=== PATIENT | female | born 1945 | race Caucasian/White ===

== ENCOUNTER 2017-01-27 15:48 | Emergency (ER) | payer OTHER | END 2017-01-27 18:30 | disposition home or self-care (01) | DX: S83.8X1A Sprain of other specified parts of right knee, initial encounter (principal); X58.XXXA Exposure to other specified factors, initial encounter; M25.561 Pain in right knee; I10 Essential (primary) hypertension; E78.00 Pure hypercholesterolemia, unspecified; E11.9 Type 2 diabetes mellitus without complications; K21.9 Gastro-esophageal reflux disease without esophagitis; M19.90 Unspecified osteoarthritis, unspecified site ==

== ENCOUNTER 2017-02-12 08:18 | Outpatient (CLI) | payer OTHER | END 2017-02-12 08:19 | disposition home or self-care (01) | DX: E11.9 Type 2 diabetes mellitus without complications (principal); I10 Essential (primary) hypertension; E78.5 Hyperlipidemia, unspecified ==

== ENCOUNTER 2017-04-29 10:57 | Outpatient (CLI) | payer OTHER ==
--- NOTE | 2017-04-29 14:30 | Ultrasound Report ---
RIGHT BREAST ULTRASOUND: 04/29/2017 CLINICAL INDICATION: Abnormal mammogram. TECHNIQUE: Real-time scanning was performed with hr representative static images obtained. FINDINGS: Ultrasound of the upper outer quadrant of the right breast was performed. At the 10 o'clock position, approximately 5 cm from the nipple, there is an 11 x 7 x 5 mm hypoechoic nodule, with posterior acoustic shadowing and associated vascularity. The findings are suspicious. Bi opsy is recommended. The nodule appears amenable to ultrasound-guided core needle biopsy. IMPRESSION: SUSPICIOUS SOLID NODULE CORRELATING WITH THE MAMMOGRAPHIC ABNORMALITY. RECOMMENDATION: BIOPSY. THE NODULE APPEARS AMENABLE TO ULTRASOUND-GUIDED CORE NEEDLE BIOPSY. BIRADS CATEGORY 4-SUSPICIOUS ABNORMALITY. Results and recommendations discussed with the patient at the time of the examination, and called to Dr. Ocasio on 04/29/2017. Biopsy is scheduled on 05/04/2017 at 12:45 p.m. JOB #: [id number] EXT JOB #:[id number]
--- NOTE | 2017-04-29 15:08 | Ultrasound Report ---
LEFT BREAST ULTRASOUND: 04/29/2017 CLINICAL INDICATION: Palpable abnormality left breast. TECHNIQUE: Real-time scanning was performed with client care representative static images obtained. FINDINGS: Ultrasound of the palpable abnormality in the left outer breast was performed. At this site, there is a 2.4 x 2.0 x 2.0 cm hypoechoic mass with posterior acoustic shadowing and per ipheral vascularity. The appearance is suspicious. There is a mildly enlarged left axillary lymph nod e, with asymmetric cortical thickening, suspicious for jessica metastatic disease. IMPRESSION: SUSPICIOUS MASS CORRELATING WITH THE PALPABLE ABNORMALITY, WELL A POSSIBLE LEFT LY MPH NODE METASTATIC LESION. RECOMMENDATION: SAMPLING OF BOTH THE PALPABLE NODULE AND THE ABNORMAL LEFT AXILLARY LYMPH NODE. BOTH LESIONS APPEAR AMENABLE TO ULTRASOUND-GUIDED BIOPSY. BIRADS CATEGORY 4-SUSPICIOUS ABNORMALITY. Results and recommendations discussed with the patient at the time of the examination, and called to Dr. Ocasio on 04/29/2017. Biopsy is scheduled for 05/04/2017 at 12:45 p.m. JOB #: [id number] EXT JOB #:[id number]
--- NOTE | 2017-04-29 15:58 | Mammography Report ---
DIAGNOSTIC BILATERAL MAMMOGRAM: 04/29/2017 CLINICAL INDICATION: Palpable abnormality left outer breast. COMPARISON: 03/08/2014 TECHNIQUE: Bilateral CC and MLO views, bilateral true lateral view, right spot compression views. FINDINGS: The breasts demonstrate heterogeneously dense fibroglandular parenchyma bilaterally. The palpable abnormality correlates with a 2 cm nodule in the left periareolar breast. Additionally, in the right upper outer central breast, there is a 1 cm persistent density, which does not disperse on additional compression. Coarse, typically benign calcifications are seen bilaterally. Please also refer to bilateral breast ultrasounds of the same day. IMPRESSION: SUSPICIOUS ABNORMALITIES, WITH SOLID NODULES BILATERALLY CORRELATING WITH THE LEFT PALPABLE AND RIGHT MAMMOGRAPHIC ABNORMALITIES, WELL AN ENLARGED LEFT AXILLARY LYMPH NODE. RECOMMENDATION: Biopsies of both nodules and the enlarged left lymph node. BI-RADS category 4, suspicious abnormalities. Results and recommendations discussed with the patient at the time of the examination, and called to Dr. Ocasio on 04/29/2017. Biopsies are scheduled fro 05/04/2017 at 12:45 p.m. STANDARD QUALIFYING STATEMENTS 1. This examination was reviewed with the aid of Computer-Aided Detection (CAD). 2. A negative or benign imaging report should not delay biopsy if clinically suspicious findings are present. Consider surgical consultation if warranted. More than 5% of cancers are not identified by imaging. 3. Dense breasts may obscure an underlying neoplasm. JOB #: [id number] EXT JOB #: [id number] IDA
== END 2017-04-29 10:58 | disposition home or self-care (01) ==
LOC: DI 10:57
PROVIDERS: ATTEND Family Medicine
DX: N63 Unspecified lump in breast (principal); R59.0 Localized enlarged lymph nodes
CPT/HCPCS: 76642; 77066

== ENCOUNTER 2017-05-04 12:38 | Outpatient (CLI) | payer OTHER ==
[2017-05-04 16:21] VITALS: BP 158/65
[2017-05-04] MEDS ORDERED: BUFFERED LIDOCAINE 10 ML SYRINGE IU ONE (16:28)
[2017-05-04] MEDS ORDERED: BUPIVACAINE 0.5%-EPI 1:200000 PF 30 ML VIAL SUBQ ONE (16:28)
--- NOTE | 2017-05-04 17:40 | Ultrasound Report ---
ULTRASOUND CORE NEEDLE BIOPSY BILATERAL BREAST LESIONS, LEFT AXILLARY LYMPH NODE : 05/04/2017 CLINICAL INDICATION: An 11 mm right breast nodule, 2.4 cm left breast mass, enlarged axillary lymph node. FINDINGS: Informed consent was obtained. Using standard aseptic technique, both 1% buffered lidocaine and Sensorcaine were injected into the right breast for local anesthesia. A small uriel was made in the skin with a #11 blade. A 12 -gauge Celero vacuum-assisted device was used to obtain three specimens. A Celero marker was placed into the biopsy cavity under ultrasound guidance. Using standard aseptic technique, both 1% lidocaine and Sensorcaine were then injected into the left breast for local anesthesia. A small uriel was made in the skin with a #11 blade. A 12-gauge Celero vacuum-assisted device was used to obtain two specimens. A Celero marker was placed into the biopsy cavity under ultrasound guidance. Using standard aseptic technique, both 1% buffered lidocaine and Sensorcaine were injected into the left axilla. A small uriel was made in the skin with a # 11 blade. A 12-gauge Celero vacuum-assisted device was used to obtain two specimens. A Celero marker was placed into the biopsy cavity under ultrasound guidance. The patient was taken to a separate mammography machine, and a bilateral 2-view digital mammogram was performed, documenting the markers in the expected locations and no significant postbiopsy hematomas. The wounds were dressed and ice applied. The patient was observed for approximately 15 minutes, then was discharged from [facility] in good condition following instructions on wound care and obtaining results. The tissue was sent for histologic analysis. IMPRESSION: ULTRASOUND-GUIDED BIOPSY OF BILATERAL BREAST NODULES AND ENLARGED LEFT AXILLARY LYMPH NODE. An addendum will be made to this report when pathology is reviewed to establish concordance. JOB #: [id number] EXT JOB #: [id number] IDA
--- NOTE | 2017-05-19 15:44 | Ultrasound Report ---
EXAM: [id number] US/BX ([id number]) ULTRASOUND CORE NEEDLE BIOPSY BILATERAL BREAST LESIONS, LEFT AXILLARY LYMPH NODE : 05/04/2017 CLINICAL INDICATION: An 11 mm right breast nodule, 2.4 cm left breast mass, enlarged axillary lymph node. FINDINGS: Informed consent was obtained. Using standard aseptic technique, both 1% buffered lidocaine and Sensorcaine were injected into the right breast for local anesthesia. A small uriel was made in the skin with a #11 blade. A 12 -gauge Celero vacuum-assisted device was used to obtain three specimens. A Celero marker was placed into the biopsy cavity under ultrasound guidance. Using standard aseptic technique, both 1% lidocaine and Sensorcaine were then injected into the left breast for local anesthesia. A small uriel was made in the skin with a #11 blade. A 12-gauge Celero vacuum-assisted device was used to obtain two specimens. A Celero marker was placed into the biopsy cavity under ultrasound guidance. Using standard aseptic technique, both 1% buffered lidocaine and Sensorcaine were injected into the left axilla. A small uriel was made in the skin with a # 11 blade. A 12-gauge Celero vacuum-assisted device was used to obtain two specimens. A Celero marker was placed into the biopsy cavity under ultrasound guidance. The patient was taken to a separate mammography machine, and a bilateral 2-view digital mammogram was performed, documenting the markers in the expected locations and no significant postbiopsy hematomas. The wounds were dressed and ice applied. The patient was observed for approximately 15 minutes, then was discharged from [facility] in good condition following instructions on wound care and obtaining results. The tissue was sent for histologic analysis. IMPRESSION: ULTRASOUND-GUIDED BIOPSY OF BILATERAL BREAST NODULES AND ENLARGED LEFT AXILLARY LYMPH NODE. An addendum will be made to this report when pathology is reviewed to establish concordance. JOB #: [id number] EXT JOB #: [id number] Inspector Screen Printing: Reading Radiologist: Jass Cuevas MD Releasing Radiologist: Jass Cuevas MD Released Date Time: 05/05/17 0827 <Electronically signed by Jass Cuevas MD> cc: Adebayo Ocasio MD [place] ADDENDUM ADDENDUM: Procedure performed by Dr. Cuevas. Pathology reviewed by Dr. Cuevas. 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 These results are concordant with the imaging findings. RECOMMENDATION: Surgical followup for treatment planning. The patient has been scheduled to obtain results from Dr. Ocasio on 05/06/2017 at 4:00 p.m. Addendum Inspector Screen Printing: RONALD Addendum Reading Radiologist: Jass Cuevas MD Addendum Releasing Radiologist: Jass Cuevas MD Addendum Released Date Time: 05/06/17 1329 MTDD
--- NOTE | 2017-05-19 15:44 | Ultrasound Report ---
EXAM: [id number] US/BX ([id number]) ULTRASOUND CORE NEEDLE BIOPSY BILATERAL BREAST LESIONS, LEFT AXILLARY LYMPH NODE : 05/04/2017 CLINICAL INDICATION: An 11 mm right breast nodule, 2.4 cm left breast mass, enlarged axillary lymph node. FINDINGS: Informed consent was obtained. Using standard aseptic technique, both 1% buffered lidocaine and Sensorcaine were injected into the right breast for local anesthesia. A small uriel was made in the skin with a #11 blade. A 12 -gauge Celero vacuum-assisted device was used to obtain three specimens. A Celero marker was placed into the biopsy cavity under ultrasound guidance. Using standard aseptic technique, both 1% lidocaine and Sensorcaine were then injected into the left breast for local anesthesia. A small uriel was made in the skin with a #11 blade. A 12-gauge Celero vacuum-assisted device was used to obtain two specimens. A Celero marker was placed into the biopsy cavity under ultrasound guidance. Using standard aseptic technique, both 1% buffered lidocaine and Sensorcaine were injected into the left axilla. A small uriel was made in the skin with a # 11 blade. A 12-gauge Celero vacuum-assisted device was used to obtain two specimens. A Celero marker was placed into the biopsy cavity under ultrasound guidance. The patient was taken to a separate mammography machine, and a bilateral 2-view digital mammogram was performed, documenting the markers in the expected locations and no significant postbiopsy hematomas. The wounds were dressed and ice applied. The patient was observed for approximately 15 minutes, then was discharged from [facility] in good condition following instructions on wound care and obtaining results. The tissue was sent for histologic analysis. IMPRESSION: ULTRASOUND-GUIDED BIOPSY OF BILATERAL BREAST NODULES AND ENLARGED LEFT AXILLARY LYMPH NODE. An addendum will be made to this report when pathology is reviewed to establish concordance. JOB #: [id number] EXT JOB #: [id number] Apprentice Cosmetologist: Reading Radiologist: Jass Cuevas MD Releasing Radiologist: Jass Cuevas MD Released Date Time: 05/05/17 0827 <Electronically signed by Jass Cuevas MD> cc: Adebayo Ocasio MD [place] ADDENDUM ADDENDUM: Procedure performed by Dr. Cuevas. Pathology reviewed by Dr. Cuevas. 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 These results are concordant with the imaging findings. RECOMMENDATION: Surgical followup for treatment planning. The patient has been scheduled to obtain results from Dr. Ocasio on 05/06/2017 at 4:00 p.m. Addendum Apprentice Cosmetologist: RONALD Addendum Reading Radiologist: Jass Cuevas MD Addendum Releasing Radiologist: aJss Cuevas MD Addendum Released Date Time: 05/06/17 1329 MTDD
== END 2017-05-04 12:39 | disposition home or self-care (01) ==
LOC: DI 12:38
PROVIDERS: ATTEND Family Medicine
DX: C50.912 Malignant neoplasm of unspecified site of left female breast (principal); C77.3 Secondary and unspecified malignant neoplasm of axilla and upper limb lymph nodes; Z17.0 Estrogen receptor positive status [ER+]; C50.911 Malignant neoplasm of unspecified site of right female breast
CPT/HCPCS: 19083; 19084; 38505; 77066; 88305; 88341; 88342; 88360; 88374

== ENCOUNTER 2017-06-02 13:50 | Outpatient (CLI) | payer MEDICARE, OTHER ==
[2017-06-02 19:46] LABS: CREATININE 0.8 mg/dL (0.4-1.0)
== END 2017-06-02 13:51 | disposition home or self-care (01) ==
LOC: LAB.N 13:50
PROVIDERS: ATTEND Surgery
DX: C50.911 Malignant neoplasm of unspecified site of right female breast (principal)
CPT/HCPCS: 36415; 82565; 84520

== ENCOUNTER 2017-07-12 04:16 | Inpatient (IN) | payer MEDICARE ==
[2017-07-12] MEDS ORDERED: LACTATED RINGERS 1,000 ML IV ONE ×3 (08:58→16:40)
[2017-07-12] MEDS ORDERED: MIDAZOLAM 2 MG/2 ML VIAL IVP ONE ×2 (11:20→12:40)
[2017-07-12] MEDS ORDERED: ceFAZolin 2 GM/50 ML 50 ML IV ONE (11:20)
--- NOTE | 2017-07-12 11:37 | Nuclear Medicine Report ---
SENTINEL NODE INJECTION RIGHT BREAST: 07/12/2017 CLINICAL INDICATION: Breast cancer. FINDINGS: Technetium-99m filtered sulfur colloid, 1 mCi, in 4 mL buffered lidocaine was injected sub areolarly into the right breast. Anterior imaging demonstrates right axillary uptake. IMPRESSION: SUCCESSFUL RIGHT BREAST INJECTION FOR SENTINEL LYMPH NODE IDENTIFICATION. JOB #: [id number] EXT JOB #:[id number]
[2017-07-12] MEDS ORDERED: METOCLOPRAMIDE 10 MG/2 ML VIAL IVP ONE (12:40)
[2017-07-12] MEDS ORDERED: ceFAZolin 1 GM VIAL IV ONE (12:40)
[2017-07-12] MEDS ORDERED: PROPOFOL 200 MG/20 ML VIAL IVP ONE (12:40)
[2017-07-12] MEDS ORDERED: KETOROLAC 30 MG/ML VIAL IVP ONE (12:40)
[2017-07-12] MEDS ORDERED: DEXAMETHASONE 4 MG/ML VIAL IVP ONE (12:40)
[2017-07-12] MEDS ORDERED: fentaNYL 100 MCG/2 ML VIAL IVP ONE (12:40)
[2017-07-12] MEDS ORDERED: ACETAMINOPHEN 1,000 MG/100 ML VIAL IV ONE (12:40)
[2017-07-12] MEDS ORDERED: LIDOCAINE-MPF 2% 5 ML VIAL IM ONE (12:40)
[2017-07-12] MEDS ORDERED: ONDANSETRON 4 MG/2 ML VIAL IVP ONE (12:40)
[2017-07-12] MEDS ORDERED: BUPIVACAINE 0.5%-EPI 1:200000 PF 30 ML VIAL SUBQ ONE (16:41)
[2017-07-12] MEDS ORDERED: SODIUM CHLORIDE FLUSH 0.9% 10 ML SYRINGE IVP PRN (16:54)
[2017-07-12] MEDS ORDERED: ACETAMINOPHEN 1,000 MG/100 ML 100 ML IV PRN (16:54)
[2017-07-12] MEDS ORDERED: ONDANSETRON 4 MG/2 ML VIAL IVP PRN (16:54)
[2017-07-12] MEDS ORDERED: LORazepam 0.5 MG TABLET PO PRN (16:57)
[2017-07-12] MEDS ORDERED: HYDROmorphone 1 MG/ML SYRINGE ONE (17:40)
[2017-07-12] MEDS ORDERED: fentaNYL 100 MCG/2 ML VIAL ONE (18:00)
[2017-07-12] MEDS: SODIUM CHLORIDE FLUSH 0.9% 10 ML SYRINGE IVP SCH (21:34)
[2017-07-12] MEDS: MORPHINE 2 MG/ML CARPUJECT IVP PRN ×2 (21:34→23:36)
[2017-07-12] MEDS: LACTATED RINGERS 1,000 ML IV SCH (21:48)
[2017-07-13] MEDS: MORPHINE 2 MG/ML CARPUJECT IVP PRN ×3 (03:20→18:29)
[2017-07-13] MEDS: SODIUM CHLORIDE FLUSH 0.9% 10 ML SYRINGE IVP SCH ×3 (05:54→20:39)
[2017-07-13] MEDS: LACTATED RINGERS 1,000 ML IV SCH ×2 (06:50→17:13)
[2017-07-13] MEDS: CITALOPRAM 10 MG TABLET PO SCH (09:17)
[2017-07-13] MEDS: ATENOLOL 25 MG TABLET PO SCH (09:17)
[2017-07-13] MEDS: KETOROLAC 30 MG/ML VIAL IVP PRN ×2 (09:24→15:50)
--- NOTE | 2017-07-13 12:56 | PROVIDER PROGRESS NOTE ---
Subjective - General Admit Date: 07/12/17 Procedure Date: 07/12/17 Post Op Days: 1 Procedure Performed: bilateral mastectomy, right SLNB, L ALND - Review of Systems Wound/Incisions: positive: Dressing dry and intact Drain Type: LALITHA x 3 Drain Output Description: 25, 20, 60 General: positive: No symptoms Pulmonary: positive: No symptoms Cardiovascular: positive: No symptoms Gastrointestinal: positive: No symptoms Psychiatric: positive: No symptoms Objective - Patient Data Reviewed Vital Signs: Yes Vital Signs: Vital Signs x48h Temp Pulse Resp BP Pulse Ox 07/13/17 08:46 37.1 C 77 16 137/64 H 93 07/13/17 05:00 36.7 C 72 16 126/58 L 97 Intake & Output: Intake and Output Totals x24h 07/11/17 07/12/17 07/13/17 23:59 23:59 23:59 Intake Total 3336 791 Output Total 205 195 Balance 3131 596 - Lab Results Other Lab Results: Lab Results x24hrs 07/12/17 Range/Units 15:46 POC Whole Bld Glucose 159 H (70 - 100) mg/dL - Current Medications Current Medications: Current Medications Generic Name Dose Route Start Last Admin Trade Name Freq PRN Reason Stop Dose Admin Atenolol 50 mg 07/13/17 09:00 07/13/17 09:17 Tenormin PO Not Given DAILY [facility] Citalopram Hydrobromide 40 mg 07/13/17 09:00 07/13/17 09:17 Celexa PO Not Given DAILY JAEL Lactated Ringer's 1,000 mls @ 100 mls/hr 07/12/17 17:00 07/13/17 06:50 Lr IV 100 mls/hr .Q10H JAEL Administration Ketorolac Tromethamine 30 mg 07/12/17 16:54 07/13/17 09:24 Toradol Inj IVP 07/17/17 16:53 30 mg Q6H PRN Administration PAIN Morphine Sulfate 2 mg 07/12/17 16:54 07/13/17 07:19 Morphine IVP 2 mg Q2HR PRN Administration PAIN Sodium Chloride 10 ml 07/12/17 22:00 07/13/17 05:54 Normal Saline Flush 0.9% IVP Not Given Q8HR [facility] - Physical Exam Wound/Incisions: positive: Dressing dry and intact General Appearance: positive: No acute distress Respiratory: positive: Chest non-tender Cardiovascular: positive: Regular rate & rhythm Abdomen: positive: Non-tender, No distention Extremities: positive: No pedal edema Impression/Plan - Problem List Problem List: s/p bilateral mastectomy withy right SLNB and L ALND POD 1 - Continue morphine for pain control. - encourage ambulation - will transition to oral pain meds as tolerated - home medications resumed.
--- NOTE | 2017-07-13 13:31 | OPERATIVE REPORT ---
DATE OF SURGERY: 07/12/2017 00:00:00 SURGEON: Annabelle Todd MD. PREOPERATIVE DIAGNOSIS: Bilateral breast cancer. POSTOPERATIVE DIAGNOSIS: Bilateral breast cancer. NAME OF PROCEDURE: Bilateral mastectomy with right sentinel lymph node biopsy and left axillary lymph node dissection. FINDINGS: After obtaining informed consent from the patient, she was brought into the operating room and positioned on the operating table in the supine position, taking note of pressure points. She was intubated by Anesthesia. She was administered 2 grams of Ancef. She was then prepped and draped in the usual sterile fashion and a time-out was taken according to protocol. An elliptical incision was created around the right breast and skin flaps were created superiorly towards the clavicle, medially towards the sternum, inferiorly towards the inferior mammary fold, and laterally towards the latissimus dorsi. branching vessels were clipped when encountered. The breast tissue was then removed from the pectoralis fascia. The breast was then completely removed and was marked with a long stitch laterally and short stitch medially. The specimen was then passed off. The NeoProbe was then utilized to locate sentinel lymph nodes in the right axilla. The first lymph node was removed and was noted to be approximately 500 on the NeoProbe reading. It was also noted to be blue from the methylene blue injection. A second lymph node was also encountered and was noted to be 700 positivity with the NeoProbe reading and was also noted to be blue. These were both removed and passed off as sentinel lymph nodes. The incision cavity was then inspected for any signs of bleeding and this was controlled using electrocautery. One LALITHA drain was then inserted and secured in place with 3-0 nylon.The cavity was irrigated with water and the incision was then closed with interrupted 3-0 Vicryl and running 4-0 Monocryl. A blue towel was then applied. The teams' gloves were then changed, and attention was directed to the left breast. An elliptical incision was created around this breast involving the palpable large mass at the 3 o'clock position. Skin flaps were then created medially towards the sternum, anteriorly towards the clavicle, laterally towards the serratus, and inferiorly towards the inferior mammary fold. Small vessels were clipped and ligated along this process. The breast tissue was then removed from the pectoralis fascia. I worked my way towards the axillary fat pad. However, the large breast created difficulty in visualization. For this reason, it was completely amputated. At this point it was marked with a long stitch laterally, a short stitch superiorly, and passed off as a specimen. I then turned my attention to the left axilla. Due to the patient's body habitus, there was an excessive amount of adipose in this location. I was unable to initially identify appropriate landmarks to perform the dissection a portion of the axillary fat was then removed and this was saved as part of the axillary lymph node dissection in the event that lymph nodes were present in the axillary fat pad. I then completed the axillary lymph node dissection by dissecting all lymphatic tissue from the axillary vein superiorly to the pectoralis minor medially and the serratus laterally. All lymphatic tissue in this location was removed. The thoracodorsal and long thoracic nerves were identified during this portion of the procedure and were protected. The cavity was then inspected for any signs of bleeding, and this was controlled with electrocautery. The cavity was then irrigated with sterile water. Two LALITHA drains were then inserted, one in the left axilla and one in the left breast incision. These were secured in place with 3-0 nylon. The incision was then closed with 3- 0 Vicryl and 4-0 Monocryl. The patient was subsequently extubated and taken to the recovery room in stable condition. ESTIMATED BLOOD LOSS: 100 mL. COMPLICATIONS: None. SPECIMENS: Right and left breast with right sentinel lymph node biopsy and left axillary lymph node dissection. JOB #: [id number] [id number] JOB #:[id number] [facility]
[2017-07-13] MEDS ORDERED: oxyCOD/ACETAMIN 5 MG/325 MG TABLET PO PRN (16:49)
[2017-07-13] MEDS ORDERED: diphenhydrAMINE 25 MG CAPSULE PO PRN (16:49)
[2017-07-14] MEDS: LACTATED RINGERS 1,000 ML IV SCH (02:23)
[2017-07-14] MEDS: SODIUM CHLORIDE FLUSH 0.9% 10 ML SYRINGE IVP SCH (05:46)
[2017-07-14] MEDS: KETOROLAC 30 MG/ML VIAL IVP PRN (08:58)
[2017-07-14] MEDS: CITALOPRAM 10 MG TABLET PO SCH (08:58)
[2017-07-14] MEDS: ATENOLOL 25 MG TABLET PO SCH (08:58)
[2017-07-14 09:11] VITALS: BP 151/65
--- NOTE | 2017-07-14 10:21 | Discharge Plan ---
Discharge Plan Disposition: 01 Home, Self Care Condition: Good Prescriptions: diphenhydrAMINE [Benadryl] 25 mg PO Q4HR PRN #30 capsule PRN Reason: Allergy Symptoms oxyCODONE/ACET 5/325 [Percocet 5 mg/325 mg] 1 tab PO Q4HR PRN #30 tablet PRN Reason: Pain Diet: Regular Activity Restrictions: Activity as Tolerated Shower Restrictions: No Driving Restrictions: Yes (not while on narcotics) Instruction Topics: Mastectomy After No Smoking: If you smoke, Please STOP! Call for help. Follow-up with: ERIC GARCIA MD [Provider Admit Priv/Credential] - 1 Week
== END 2017-07-14 11:36 | disposition home or self-care (01) | DRG 580 ==
LOC: MS2 08:47 → DI 08:47 → EDSTATUS 10:45 → DI 13:24 → MS2 13:24 → UNDOFXSDCSVC 16:45 → MS2 16:54 → DI 16:54 → UNDOADMIN 16:54 → UNDODISIN 07-14 11:36
PROVIDERS: ADMIT Surgery; ATTEND Surgery
PROC: 0HTV0ZZ Resection of Bilateral Breast, Open Approach (ICD-10-PCS; principal; 2017-07-12 10:45)
PROC: 07B60ZX Excision of Left Axillary Lymphatic, Open Approach, Diagnostic (ICD-10-PCS; 2017-07-12 10:45)
PROC: 07B50ZX Excision of Right Axillary Lymphatic, Open Approach, Diagnostic (ICD-10-PCS; 2017-07-12 10:45)
DX: C50.812 Malignant neoplasm of overlapping sites of left female breast (principal); C77.3 Secondary and unspecified malignant neoplasm of axilla and upper limb lymph nodes; C50.411 Malignant neoplasm of upper-outer quadrant of right female breast; Z17.0 Estrogen receptor positive status [ER+]; I10 Essential (primary) hypertension; E11.9 Type 2 diabetes mellitus without complications; F32.9 Major depressive disorder, single episode, unspecified; K21.9 Gastro-esophageal reflux disease without esophagitis; M54.9 Dorsalgia, unspecified; G89.29 Other chronic pain; Z88.6 Allergy status to analgesic agent; Z86.2 Personal history of diseases of the blood and blood-forming organs and certain disorders involving the immune mechanism; Z87.19 Personal history of other diseases of the digestive system
CPT/HCPCS: 78195

== ENCOUNTER 2018-05-04 08:00 | Outpatient (CLI) | payer MEDICARE, OTHER ==
[2018-05-04 13:39] LABS: CREATININE 0.7 mg/dL (0.4-1.0)
== END 2018-05-04 08:01 | disposition home or self-care (01) ==
LOC: LAB.N 08:00
PROVIDERS: ATTEND Surgery
DX: Z01.812 Encounter for preprocedural laboratory examination (principal); C50.911 Malignant neoplasm of unspecified site of right female breast; C50.912 Malignant neoplasm of unspecified site of left female breast
CPT/HCPCS: 36415; 82565; 84520

== ENCOUNTER 2018-09-06 08:00 | Outpatient (CLI) | payer OTHER ==
[2018-09-06 13:14] LABS: BASOPHILS % (AUTO) 0.4 %; EOSINOPHILS # (AUTO) 0.2 10^3/uL (0.0-0.7); EOSINOPHILS % (AUTO) 1.7 %; HGB - HEMOGLOBIN 14.3 g/dL (12.0-16.0); LYMPHOCYTES % (AUTO) 19.7 %; MEAN CORPUSCULAR HEMOGLOBIN 28.8 pg (27.0-31.0); MEAN CORPUSCULAR HGB CONC 34.1 g/dL (32.0-36.0); MEAN CORPUSCULAR VOLUME 84.3 fL (81.0-99.0); MEAN PLATELET VOLUME 8.9 fL (7.9-10.8); MONOCYTES # (AUTO) 0.6 10^3/uL (0.0-1.0); MONOCYTES % (AUTO) 5.6 %; NEUTROPHILS # (AUTO) 7.5 10^3/uL (1.5-6.6); NEUTROPHILS % (AUTO) 72.6 %; PLT - PLATELET COUNT 335 10^3/uL (130-450); RED BLOOD COUNT 4.99 10^6/uL (4.20-5.40); RED CELL DISTRIBUTION WIDTH 13.5 % (12.0-15.0); WHITE BLOOD COUNT 10.4 x10^3/uL (4.8-10.8)
[2018-09-06 13:32] LABS: ALBUMIN 3.8 g/dL (3.2-5.5); CREATININE 0.8 mg/dL (0.4-1.0); PHOSPHORUS 3.8 mg/dL (2.5-4.6)
== END 2018-09-06 08:01 | disposition home or self-care (01) ==
LOC: LAB.N 08:00
DX: Z01.818 Encounter for other preprocedural examination (principal)
CPT/HCPCS: 36415; 80069; 85025

== ENCOUNTER 2018-09-13 18:58 | Outpatient (CLI) | payer OTHER ==
[2018-09-13 19:38] LABS: ALBUMIN/GLOBULIN RATIO 1.1 (1.0-2.2); BILIRUBIN,TOTAL 1.3 mg/dL (0.2-1.0); CALCIUM 8.8 mg/dL (8.5-10.3); CREATININE 0.7 mg/dL (0.4-1.0); TOTAL PROTEIN 7.5 g/dL (6.7-8.2); URIC ACID 6.5 mg/dL (2.6-7.2)
[2018-09-13 20:12] LABS: BASOPHILS # (AUTO) 0.1 10^3/uL (0.0-0.1); BASOPHILS % (AUTO) 0.5 %; EOSINOPHILS # (AUTO) 0.2 10^3/uL (0.0-0.7); EOSINOPHILS % (AUTO) 1.6 %; HGB - HEMOGLOBIN 14.1 g/dL (12.0-16.0); LYMPHOCYTES # (AUTO) 1.8 10^3/uL (1.5-3.5); LYMPHOCYTES % (AUTO) 15.2 %; MEAN CORPUSCULAR HEMOGLOBIN 29.1 pg (27.0-31.0); MEAN CORPUSCULAR HGB CONC 35.1 g/dL (32.0-36.0); MEAN CORPUSCULAR VOLUME 82.9 fL (81.0-99.0); MEAN PLATELET VOLUME 8.1 fL (7.9-10.8); MONOCYTES # (AUTO) 0.9 10^3/uL (0.0-1.0); MONOCYTES % (AUTO) 7.6 %; NEUTROPHILS # (AUTO) 8.8 10^3/uL (1.5-6.6); NEUTROPHILS % (AUTO) 75.1 %; PLT - PLATELET COUNT 294 10^3/uL (130-450); RED BLOOD COUNT 4.85 10^6/uL (4.20-5.40); RED CELL DISTRIBUTION WIDTH 13.3 % (12.0-15.0); WHITE BLOOD COUNT 11.6 x10^3/uL (4.8-10.8)
== END 2018-09-13 18:59 | disposition home or self-care (01) ==
LOC: LAB 18:58
PROVIDERS: ATTEND Physician Assistant
DX: R60.0 Localized edema (principal); I10 Essential (primary) hypertension
CPT/HCPCS: 36415; 80053; 84550; 85025

== ENCOUNTER 2018-09-13 19:02 | Outpatient (CLI) | payer OTHER ==
--- NOTE | 2018-09-13 19:59 | Ultrasound Report ---
Reason: LEG EDEMA,LEFT Procedure Date: 09/13/2018 Accession Number: [id number] / [id number] Procedure: US - Duplex Ext Veins Left CPT Code: FULL RESULT: EXAM: LEFT LOWER EXTREMITY VENOUS ULTRASOUND EXAM DATE: 09/13/2018 07:43 PM. CLINICAL HISTORY: LEG EDEMA,LEFT. COMPARISON: None. TECHNIQUE: Real-time sonographic vascular imaging was performed by the cost controller through the lower extremity utilizing both color-flow and Doppler spectral analysis. Multiple tour sales representative static images were saved for review. FINDINGS: Common Femoral Vein (CFV): Normal. CFV-GSV Junction: Normal. Profunda Femoral Vein (PFV): Normal. Femoral Vein (FV) Prox: Normal. Femoral Vein (FV) Mid: Normal. Femoral Vein (FV) Dist: Normal. Popliteal Vein: Normal. Posterior Tibial Veins: Normal. Peroneal Veins: Normal. Contralateral Side CFV: Normal. Other: None. IMPRESSION: No evidence for deep venous thrombosis. RADIA
== END 2018-09-13 19:03 | disposition home or self-care (01) ==
LOC: DI 19:02
PROVIDERS: ATTEND Physician Assistant
DX: R60.0 Localized edema (principal); I10 Essential (primary) hypertension
CPT/HCPCS: 36415; 80053; 84550; 85025

== ENCOUNTER 2019-01-06 08:31 | Outpatient (CLI) | payer BC ==
--- NOTE | 2019-01-06 09:07 | XRAY Report ---
Reason: CHEST PX, ATYPICAL Procedure Date: 01/06/2019 Accession Number: [id number] / [id number] Procedure: WCP - Chest 2 View X-Ray CPT Code: 28015 FULL RESULT: EXAM: CHEST RADIOGRAPHY EXAM DATE: 01/06/2019 08:49 AM. CLINICAL HISTORY: CHEST PX, ATYPICAL. Right chest pain. COMPARISON: XR CHEST PA AND LAT 01/22/2010 12:31 PM. TECHNIQUE: 2 views. FINDINGS: Lungs/Pleura: No focal opacities evident. No pleural effusion. No pneumothorax. Normal volumes. Mediastinum: Heart and mediastinal contours are unremarkable. Other: There is mild left convex upper thoracic scoliosis. Mild multilevel thoracic degenerative disk disease. Bilateral breast surgical clips. IMPRESSION: Negative chest. No evidence of active cardiopulmonary disease. RADIA
== END 2019-01-06 08:32 | disposition home or self-care (01) ==
LOC: DI.WCP 08:31
PROVIDERS: ATTEND Family Medicine
DX: R07.89 Other chest pain (principal)
CPT/HCPCS: 71046

== ENCOUNTER 2019-06-21 11:37 | Outpatient (CLI) | payer BC, OTHER ==
[2019-06-21 18:44] LABS: BASOPHILS # (AUTO) 0.1 10^3/uL (0.0-0.1); BASOPHILS % (AUTO) 0.5 %; EOSINOPHILS # (AUTO) 0.1 10^3/uL (0.0-0.7); LYMPHOCYTES # (AUTO) 2.3 10^3/uL (1.5-3.5); LYMPHOCYTES % (AUTO) 21.8 %; MEAN CORPUSCULAR HEMOGLOBIN 27.2 pg (27.0-31.0); MEAN CORPUSCULAR VOLUME 87.7 fL (81.0-99.0); MEAN PLATELET VOLUME 10.9 fL (7.9-10.8); MONOCYTES # (AUTO) 0.6 10^3/uL (0.0-1.0); MONOCYTES % (AUTO) 5.7 %; NEUTROPHILS # (AUTO) 7.4 10^3/uL (1.5-6.6); NEUTROPHILS % (AUTO) 70.4 %; PLT - PLATELET COUNT 332 10^3/uL (130-450); RED BLOOD COUNT 5.52 10^6/uL (4.20-5.40); RED CELL DISTRIBUTION WIDTH 13.5 % (12.0-15.0); WHITE BLOOD COUNT 10.5 x10^3/uL (4.8-10.8)
[2019-06-21 19:03] LABS: ALBUMIN 3.9 g/dL (3.2-5.5); ALBUMIN/GLOBULIN RATIO 1.2 (1.0-2.2); BILIRUBIN,TOTAL 0.7 mg/dL (0.2-1.0); CALCIUM 9.1 mg/dL (8.5-10.3); CREATININE 0.8 mg/dL (0.4-1.0); TOTAL PROTEIN 7.1 g/dL (6.7-8.2)
== END 2019-06-21 11:38 | disposition home or self-care (01) ==
LOC: LAB.WCP 11:37
PROVIDERS: ATTEND Family Medicine
DX: E04.1 Nontoxic single thyroid nodule (principal); R10.11 Right upper quadrant pain
CPT/HCPCS: 36415; 80053; 83690; 84443; 85025

== ENCOUNTER 2019-10-10 12:15 | Outpatient (CLI) | payer MEDICARE, OTHER ==
--- NOTE | 2019-10-11 01:03 | XRAY Report ---
Reason: RIGHT SIDE CHEST PAIN Procedure Date: 10/10/2019 Accession Number: [id number] / [id number] Procedure: WCP - Chest 2 View X-Ray CPT Code: 94893 Final Report FULL RESULT: EXAM: CHEST RADIOGRAPHY EXAM DATE: 10/10/2019 12:15 PM. CLINICAL HISTORY: RIGHT SIDE CHEST PAIN. COMPARISON: CHEST 2 VIEW 01/06/2019 8:28 AM. TECHNIQUE: 2 views. FINDINGS: Lungs/Pleura: No focal opacities evident. No pleural effusion. No pneumothorax. Normal volumes. Mediastinum: Borderline cardiomegaly. Other: Mild levoscoliosis upper thoracic spine. Left breast surgical clips. No acute bone findings are seen. Demineralized bones. IMPRESSION: Borderline cardiomegaly, unchanged. No acute findings are seen. RADIA
== END 2019-10-10 23:59 | disposition home or self-care (01) ==
LOC: DI.WCP 12:15
PROVIDERS: ATTEND Family Medicine
DX: R07.89 Other chest pain (principal)
CPT/HCPCS: 71046

== ENCOUNTER 2019-11-09 14:48 | Outpatient (CLI) | payer MEDICARE ==
--- NOTE | 2019-11-09 18:30 | CONSULTATION NOTE ---
Palliative Care Consultation - Referral Referring Provider: Dr. Ludy Nicholson Time of Visit: [id number] Referral setting: Home Referral Reason: Pain of neoplastic origin/Fatigue/Met Breast CA - Information Sources Records reviewed: Previous records reviewed History/Review of Systems obtained from: Patient Exam limitations: Clinical condition (having some STM/cog. slowing) - History of Present Illness Brief History of Present Illness: This is a 74-year-old woman who presents today with fairly high symptom burden, she has a history of bilateral breast cancer, infiltrating ductal, ER/TN positive, HER-2 negative. She was originally treated in 2017 with bilateral mastectomies, a left axillary lymph node dissection and right sentinel node. It was recommended that time for adjuvant radiation chemotherapy, she opted not to pursue but did initiate anastrozole, unfortunately because of her intolerance with nausea vomiting depression and was no longer able to tolerate this. Patient did pursue reconstruction, with the placement of tissue expanders, unfortunately presented with severe pain for 6 weeks, and had them removed. Reports there was a recall on the product, and concerned may have added to her risk of recurrence. Because of her persistent pain, a CT scan of her chest, abdomen, and pelvis is obtained on which showed extensive bony mets involving her left sternal border measuring 3.4 x 4.4 cm, thoracic spine at mid chest level measuring 1.6 x 1.8 cm with early epidural tumor more invasion. Th at point time there is no visceral soft tissue mets found, and she proceeded to receive radiation to sternum and back, which she completed in 08/2019. She did initially get some relief of her severe pain levels, but these have now reoccurred. Patient currently receiving Faslodex and Ibrance. She is experiencing severe fatigue as a side effect. To add to her complexity of her situation, she roger ears to have poor tolerance of opioids, with side effects of pruritus that are fairly severe. She has trialed oxycodone, but pruritis has been severe and only takes the "edge" off. She was initiated by her oncologist on 11/01 gabapentin, with goal to treat both her peripheral neuropathy and her pruritus. She has just initiated, this, but did get some relief, she is on a titration. We reviewed this to start more aggressively, as she has so far tolerated this. Pain is worse with weight bearing, most severe in right clavicular/sternal border and right inner thigh bone. She reports her pain as severe and debilitating, and can hardly stand it. She does present with persistent fatigue, activity intolerance, denies breathlessness with this. It is limiting her ability though to participate in self-care activities, and follow through on appointments. Her other persistent and concerning symptom, has been her "chemo brain", she does feel foggy, difficulty with word finding, tracking and understanding information. She is in interview, able to answer questions appropriately, does not demonstrate any confusion, but does have a delay and difficulty with recall of short-term memory events. Patient currently being worked up for further metastatic recurrence. She received a CT scan of her abdomen pelvis yesterday, is to get a bone scan, as well as an MRI of her brain. Her original understanding which she had 1 year with her diagnosis, but in follow-up with oncology if patient with bone mets only, 2 to 8 years. Patient though distressed with her current quality of life, and ill inability to participate in things that have meaning for her.Palliative care has been asked to see patient for support and pain and symptom management as well as anticipatory guidance. Medical/Surgical History - Past Medical History Cardiovascular: reports: Hypertension, High cholesterol Respiratory: reports: COPD Neuro: reports: Headache/migraine, Head injury, Other (chemo brain) Endocrine/Autoimmune: reports: Type 2 diabetes GI: reports: GERD, Ulcers : reports: Incontinence HEENT: reports: Chronic vision loss, Chronic hearing loss, Other Psych: reports: Depression, Anxiety Musculoskeletal: reports: Osteoarthritis, Chronic back pain Derm: reports: None MRSA Hx?: No - Past Surgical History General: reports: Appendectomy Ortho: reports: Spine surgery /EQUIPMENT TECH: reports: Dilation and currettage, Mastectomy HEENT: reports: Tonsil/Adenoidectomy - Substance History Dependence: Experiences withdrawal or developed tolerances: Tobacco (hx of smoking) Social History - Living Situation Living arrangement: At home Living Situation: Alone Support System: Patient reports extensive support system through friends and community. [place] is busy with her own l sejal. She has had 3 husbands, most recently 5 or 6 years ago. She has 3 children, 1 daughter here, one son in [place], one daughter who is estranged. Patient does express financial concerns, she had been able to work previous to her recurrence. 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 She is an animal lover, and has one cat Family History - Family History Family History: Mother: ( of lymphoma), CVA/TIA ( at home age 91), Father: Medications/Allergies - Medications Home Medications: Ambulatory Orders Medication Instructions Recorded Confirmed Citalopram [CeleXA] 40 mg PO DAILY tablet 07/14/17 11/10/19 Metoprolol Succinate 100 mg PO DAILY 08/29/19 11/10/19 oxyCODONE [Roxicodone] 10 mg PO Q4HR PRN 09/26/19 11/10/19 Gabapentin 300 mg PO Q8H 30 Days #90 capsule 11/01/19 11/10/19 MDD titrating up with 600 mg at hs Palbociclib [Ibrance] 125 mg PO DAILY 11/01/19 11/10/[address] [Voltaren] 75 mg PO BID 11/10/19 11/10/19 Hydromorphone HCl 4 mg PO Q4HR PRN 11/10/19 11/10/19 Ipratropium Osgood 1 inh NURA DAILY PRN 11/10/19 11/10/19 Senna [Senokot] 8.6 mg PO BID PRN 11/10/19 11/10/19 - Allergies Allergies/Adverse Reactions: Allergies Allergy/AdvReac Type Severity Reaction Status Date / Time codeine Allergy Emesis Verified 11/01/19 14:36 pseudoephedrine Allergy Hives Verified 11/01/19 14:36 tramadol AdvReac Itching Verified 11/01/19 14:36 Review of Systems - Constitutional Constitutional: reports: Fatigue, Poor appetite, Weight loss. denies: Fever, Chills - Eyes Eyes: reports: Vision loss, Corrective lenses - Ears, Nose & Throat Ears, Nose & Throat: reports: Hearing loss (mild), Nasal congestion, Dentures - Cardiovascular Cardiovascular: reports: Decr. exercise tolerance - Respiratory Respiratory: denies: SOB at rest - Gastrointestinal Gastrointestinal: reports: Abdominal pain (right upper quadrant; remote hx of cholecystits 25 yrs ago; persistent; known gallstones), Early satiety. denies: Nausea - Musculoskeletal Musculoskeletal: reports: Back pain, Muscle aches, Stiffness, Limited range of motion, Muscle weakness - Integumentary Integumentary: reports: Pruritis - Neurological Neurological: reports: General weakness, Memory problems (describes "chemo brain") - Psychiatric Psychiatric: reports: Depression, Anxiety - Endocrine Endocrine: reports: Diabetes type 2 - Hematologic/Lymphatic Hematologic/Lymphatic: reports: Other (poor venous access) - All Other Systems All Other Systems: reports: Other (limited ROS) Physical Exam - Vital Signs Temperature: 96.4 C Pulse Rate: 74 Respiratory Rate: 18 O2 Saturation: 97 (ra @ rest) Blood Pressure: 138/68 - Physical Exam General Appearance: positive: Moderate distress, Lethargic Eyes Bilateral: positive: Normal inspection Neck: positive: Trachea midline Cardiovascular: positive: Regular rate & rhythm Respiratory: positive: No respiratory distress, Breath sounds nml Abdomen: positive: Non-tender, Soft, Nml bowel sounds Skin: positive: Pallor, Other (patient with bilateral masectomies; scars soft without noted nodules;). negative: Rash Extremities: positive: No pedal edema Neurologic/Psychiatric: positive: Oriented x3, Weakness, Flat affect, Other (speech slow and measure) Palliative Care Pain: Pain worsening, Location (see hpi) Tiredness/Fatigue: Severe (7-10) Drowsiness/Sedation: Moderate (4-6) Depression: Moderate (4-6) (depressive symptoms) Anxiety: Moderate (4-6) Feelings of wellbeing/Perceived Quality of Life: Poor, Worsening Sleep: Variable sleep pattern (related to pain) Constipation: No Performance Status: Had decline in functional status, specific to her pain and fatigue. This does limit her ability to move participate and get her needs met, it is difficult for her to reach out and ask for assistance. She is able to participate in her own ADLS, though meal prep is challenging. - Palliative Care Discussion: This initial visit with palliative care, time spent in setting rapport. Patient currently getting restaging, with much uncertainty. She feels like she has more to do, and is hoping for extended quantity of life, currently would also like improved quality of life which would include addressing her fatigue and her uncontrolled pain. Patient expresses 1 of her goals is "to laugh until I ", she does feel she has adequate support psychosocial and emotionally. 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 She identifies her spiritual approach as informal, and believes in karma, and does not identify needs in this area. Results - Lab Results Lab results reviewed: Yes Impression and Recommendations - Palliative Care Impression: This is a 74-year-old woman who presents with metastatic breast cancer, currently receiving restaging secondary to increasing pain and cognitive changes. Patient presents with high symptom burden particularly focused on pain and fatigue. Patient with intolerance to opioids, will add to the complexity of management particularly as patient lives alone. Palliative care to provide support for ongoing pain and symptom management needs and anticipatory guidance. Recommendations/Counseling Done: 1. Pain of neoplastic origin. This is multifactorial, and appears to have several pain generators. Suspect the majority of her pain is bony mets, which does challenges even without the setting of opioid intolerance. Sling provided regarding the role of gabapentin, patient thought it was just for pruritus. We did discuss makes a good pain adjuvant, given our limited tools, she is currently initiated 600 mg on Wednesday night, 300 mg the last 2 nights, and instructed to continue with the 600 mg at night for 3 nights, then to titrate up to 300 mg a.m. and 600 mg p.m. for 3 days, then 300 mg a.m., 300 mg in the afternoon, and 600 mg at bedtime. Patient is on diclofenac 75 mg, she took 2 at a time last night, discussed patient is not to take this as needed, counseling provided regarding needing to take this on a regular basis and with food twice daily. Patient does have intolerance to opioids with resulting in severe pruritus, will trial hydromorphone, as may be less problematic though only given 40 tabs to see if better tolerated. Patient fairly opioid nurys, do not feel it safe to start her on fentanyl particular without primary caregiver in place. Introduced to patient actually she most likely would be a really good candidate for methadone, will trial gabapentin and supplemental opioid and NSAID and monitor response. Also be helpful to have further restaging done in the context of identifying what were treating. Directions were written out given patient's "fog", and reviewed with verbal understanding. 2. Fatigue. Discussion ensued trying to tease out if patient experiencing exacerbation of depression, versus fatigue. Patient symptoms more aligned with fatigue, she is interested in trying methylphenidate, instructed given her multiple drug intolerances, to initiated half tab of 5 mg. Counseling provided regarding half to full tab up to twice a day, can titrate all the way up to 2 tabs if indicated. Prescription provided. 3. Metastatic breast cancer with bony mets. Patient currently getting further work-up for restaging. Currently on Ibrance and Faslodex, with Xgeva monthly. Will await outcome of exams for further management of symptoms. 4. Depression. Patient currently on maximum dose of citalopram, patient feels she has adequate support. Reviewed other options from palliative care team. Counseling provided to explore reluctance for asking for help, encouraged to reach out and accept further support. 5. Advanced care planning. Prognosis at this point in time is not clearly defined, adding to the complexity to the conversation regarding advanced care planning. Initiated conversation regarding short-term goals, we will follow-up on further advanced care planning at next visit. Time Spent: 90 minutes with greater than 50% of this done and counseling regarding pain and symptom management anticipatory guidance, exploration of goals and concerns as well as initiating rapport.
== END 2019-11-09 14:49 | disposition home or self-care (01) ==
LOC: PC 14:48
PROVIDERS: ATTEND Nurse Practitioner Adult Health
DX: Z51.5 Encounter for palliative care (principal); G89.3 Neoplasm related pain (acute) (chronic); C79.51 Secondary malignant neoplasm of bone; Z85.3 Personal history of malignant neoplasm of breast; R53.83 Other fatigue; R41.89 Other symptoms and signs involving cognitive functions and awareness; F32.9 Major depressive disorder, single episode, unspecified; Z79.899 Other long term (current) drug therapy; Z79.891 Long term (current) use of opiate analgesic
CPT/HCPCS: 99345

== ENCOUNTER 2019-11-20 14:30 | Outpatient (CLI) | payer MEDICARE ==
--- NOTE | 2019-11-20 16:50 | CONSULTATION NOTE ---
Palliative Care Follow Up - Referral Referring Provider: Dr. Quang Lozada Time of Visit: [id number] Referral setting: Home Referral Reason: Pain of neoplastic origin/Fatigue/Met Breast CA - Information Sources Records reviewed: Previous records reviewed History/Review of Systems obtained from: Patient Exam limitations: Clinical condition (patient with some STM r/t time) - History of Present Illness Update Brief HPI Update: Please see HPI for 11/09/2019, I am seeing this 74-year-old woman in follow-up for her metastatic breast cancer to the bones only. She is currently receiving Faslodex and Ibrance, she is experiencing severe fatigue as a side effect. I was asked to see her regarding her pain management, as she is had escalating pain. She was trialed on oxycodone, she has severe pruritus and nausea and vomiting, and was started by her oncologist on 11/01 with gabapentin with some improvement. When I saw her on 11/09 continue to titrate this up to current dosing of Gabapentin 300 mg am, 600 mg PM, she forgets to take mid day dose, she has had some improvement, we did trial some hydromorphone to see if this was better tolerated than the oxycodone, she had actually done a significant amount of activity which exacerbated her pain severely on Wednesday, unfortunately hydromorphone had the same effect with severe pruritus and mild nausea and vomiting. Patient's area of pain is mostly in her right thigh, worse with weightbearing, and most severe in her eft occipital area radiating down to her neck and into her left shoulder today. She reports the pain is improved with laying down and taking pressure off of that area, worse with increased pressure up and standing upright. Adding to the complexity, she has had previous injury in that left shoulder area, including head injury to the occipital area. It is unclear if this is a chronic issue that is exacerbated, or is related to her cancer diagnosis. She reports her pain is severe and debilitating, her right sternal border pain has improved somewhat. She also complains of a severe abdominal crampy pain, right upper quadrant pain that is not consistent with bony mets, as well as bilateral knee joint pain. She is due to have her nuclear bone scan and brain MRI on 11/24. She originally did have radiation to her right sternal border and thoracic area with improvement of her pain, at this point this seems the most appropriate intervention if she does have disease that can be targeted. Is also using CBD, as well as smoking marijuana, this comes the pain and spasms down. She usually does this at bedtime, and has found it a good augmentation to her pain regimen. She has tried the Ritalin, half tab was ineffective, 2 tabs was too much, she has found 5 mg has been able to allow her to do some functional activity. She has been holding back though, and using it "only if absolutely needed". She has been encouraged to use it more frequently given her quality of life issues and functional limitations. Social History - Living Situation Living arrangement: At home Living Situation: Alone Support System: Patient does have her granddaughter currently visiting her, unfortunately this is when she is needed to increase her activity which has increased her pain levels. [place], and has been involved in multiple appointments and support of her. She does live alone though, is worried about financial stressors that she is no longer able to work, does feel like she has good community support. Medications/Allergies - Medications Home Medications: Ambulatory Orders Medication Instructions Recorded Confirmed Citalopram [CeleXA] 40 mg PO DAILY tablet 07/14/17 11/20/19 Metoprolol Succinate 100 mg PO DAILY 08/29/19 11/20/19 oxyCODONE [Roxicodone] 10 mg PO Q4HR PRN 09/26/19 11/20/19 Palbociclib [Ibrance] 125 mg PO DAILY 11/01/19 11/20/[address] [Voltaren] 75 mg PO BID 11/10/19 11/20/19 Ipratropium [place] 1 inh NURA DAILY PRN 11/10/19 11/20/19 Senna [Senokot] 8.6 mg PO BID PRN 11/10/19 11/20/19 Gabapentin 600 mg PO BID MDD titrating up 900 11/20/19 11/20/19 mg at hs 1/6 Methylphenidate [Ritalin] 5 mg PO BID PRN 11/20/19 11/20/19 Calcium Carbonate/Vitamin D3 1 tab PO DAILY 11/21/19 11/21/19 [Calcium 500-Vit D3 600 Caplet] - Allergies Allergies/Adverse Reactions: Allergies Allergy/AdvReac Type Severity Reaction Status Date / Time codeine Allergy Emesis Verified 11/01/19 14:36 oxycodone Allergy Itching Verified 11/20/19 16:47 pseudoephedrine Allergy Hives Verified 11/01/19 14:36 hydromorphone AdvReac Itching Verified 11/20/19 16:47 tramadol AdvReac Itching Verified 11/01/19 14:36 Review of Systems - Constitutional Constitutional: reports: Fatigue (continues to be limiting), Poor appetite, Weight loss, Other (taste changes). denies: Fever, Chills - Eyes Eyes: reports: Vision loss, Corrective lenses - Ears, Nose & Throat Ears, Nose & Throat: reports: Nasal congestion, Dry mouth - Cardiovascular Cardiovascular: reports: Lightheadedness, Decr. exercise tolerance. denies: Edema - Respiratory Respiratory: denies: SOB at rest - Gastrointestinal Gastrointestinal: reports: Abdominal pain (RUQ persistent dull ache; lower abdominal cramping fluctuating), Nausea (only with hydromorphone), Reflux/heartburn, Poor appetite, Early satiety. denies: Constipation, Vomiting - Musculoskeletal Musculoskeletal: reports: Muscle aches, Stiffness, Muscle weakness, Joint pain (left shoulder) - Integumentary Integumentary: reports: Dryness - Neurological Neurological: reports: General weakness, Memory problems, Abnormal gait - Psychiatric Psychiatric: reports: Depression, Anxiety - Hematologic/Lymphatic Hematologic/Lymphatic: denies: Recurrent infections - All Other Systems All Other Systems: reports: Reviewed and negative Physical Exam - Vital Signs Temperature: 36.8 C Pulse Rate: 67 Respiratory Rate: 18 O2 Saturation: 96 (ra @ rest) Blood Pressure: 142/72 - Physical Exam General Appearance: positive: Mild distress, Lethargic Eyes Bilateral: positive: Normal inspection ENT: positive: No signs of dehydration Neck: positive: No JVD, Trachea midline Cardiovascular: positive: Regular rate & rhythm Respiratory: positive: No respiratory distress, Breath sounds nml, Diminished in bases. negative: Wheezes, Rales, Rhonchi Abdomen: positive: Soft, Tenderness (RUQ) Skin: positive: Pallor, Dryness Extremities: positive: No pedal edema Neurologic/Psychiatric: positive: Oriented x3, Mood/affect nml, Weakness, Flat affect Palliative Care - POLST Patient has POLST: No Pain: Pain improved, Location (SEE HPI) Tiredness/Fatigue: Severe (7-10) Drowsiness/Sedation: Moderate (4-6) Nausea: Mild (1-3) Anorexia: Moderate (4-6), Weight loss Dyspnea: None Depression: Mild (1-3) Anxiety: Mild (1-3) Feelings of wellbeing/Perceived Quality of Life: Fair, Worsening Sleep: Sleeps well Constipation: Yes, Opoid induced, Managed Performance Status: Patient does live alone, is responsible for her own household duties. She is able to manage her ADLs, but does find herself lying down mostly both for fatigue and pain relief. - Palliative Care Discussion: Patient is anxious to have the results of her tests, she feels like overall she would really like information from Dr. Lozada regarding prognosis. She feels better understanding her prognosis will help her set goals, as well as influence her next decisions. We did discuss the urgency and recommendation to get her D POA settled as soon as possible. She would pick her daughter Ashley Thornton [phone] is her DPOAE. She does have a son who should put a second as well as would not want her estranged daughter involved in decision-making. We discussed currently given the state laws, all 3 would be involved and less she designates 1. Form was provided. She feels like Ashley does know what she would want to not watch as far as quality of life and in the context of making decisions around quality of life. She would like again prognostic information to better be able to define what some of those decisions might be particularly in the future. She does feel strongly that if her pain is poorly controlled, or she deteriorated such she had before with nausea and vomiting, the pruritus, and poorly controlled pain that that would not be acceptable quality of life. She is hopeful as she does have things she would like yet to accomplish, and is actually doing okay in this "waiting time", but is anxious to move forward Impression and Recommendations - Palliative Care Impression: This is a 74-year-old woman who presents with metastatic breast cancer, currently receiving restaging secondary to increased pain and cognitive changes. She does present with high symptom burden, particular around her pain and fatigue. Her complexity regarding her intolerance of opioids, and the fact she lives alone is challenging for her pain regimen. Palliative care to provide support for ongoing pain and symptom management and anticipatory guidance. Recommendations/Counseling Done: 1. Pain of neoplastic origin. This is multifactorial and appears to have several pain generators. Patient does have some specific target areas of her right thigh and left shoulder occipital area, she is to get a nuclear bone scan, discussed given her response to radiation before, could look at targeting this. She did trial the hydromorphone with consistent symptoms regarding opioid intolerance as before, with severe pruritus, and nausea. She was having difficulty with the 3 times daily dosing of gabapentin. She will go ahead and increase to 600 mg twice daily, for 1 week, if she is not experiencing more sedation, she will increase it to 900 at bedtime. Patient is on diclofenac 75 mg, twice daily with food, may consider changing this out for Decadron given the results of her scan. She is also using medical marijuana to support her pain relief, with some improvement. Patient also may need further work up for abdominal pain r/t possibly related to her gallbladder. Patient may be a candidate for methadone, though this is complex given she lives alone, and has thus far presented with pruritus with any opioids. 2. Fatigue. Patient continues with limiting fatigue, she did get a good respo nse with the Ritalin 5 mg, encouraged to use this to help her with her quality of life issues and functional status. She did not have any untoward side effects. 3. Short-term memory issues. This is multifactorial, given her medications, use of medical marijuana, fatigue, and awaiting results of brain MRI to see if this has any significance. She denies any confusion, just some forgetfulness, a nd difficulty tracking time. 4. Depression. Patient currently on maximum dose of citalopram, patient does feel like she has adequate support. She does feel she can move forward somewhat as far as addressing some of her grief and loss issues, if able to better define what her journey with her metastatic breast cancer is going to be. 5. Advanced care planning. Prognosis at this time is not clearly defined, will go ahead and encourage her to finish her D POA paperwork, and further explore after she is met with Dr. Lozada. Time Spent: 45 minutes with greater than 50% of this done in counseling regarding pain and symptom management, exploration of goals of care, coordination of care with oncology team.
== END 2019-11-20 14:31 | disposition home or self-care (01) ==
LOC: PC 14:30
PROVIDERS: ATTEND Nurse Practitioner Adult Health
DX: Z51.5 Encounter for palliative care (principal); G89.3 Neoplasm related pain (acute) (chronic); R53.83 Other fatigue; T45.1X5A Adverse effect of antineoplastic and immunosuppressive drugs, initial encounter; R10.11 Right upper quadrant pain; R41.3 Other amnesia; F32.9 Major depressive disorder, single episode, unspecified; C79.51 Secondary malignant neoplasm of bone; C50.919 Malignant neoplasm of unspecified site of unspecified female breast; Z79.818 Long term (current) use of other agents affecting estrogen receptors and estrogen levels; Z79.899 Other long term (current) drug therapy; Z79.891 Long term (current) use of opiate analgesic; Z92.3 Personal history of irradiation
CPT/HCPCS: 99349

== ENCOUNTER 2020-03-20 13:49 | Outpatient (CLI) | payer MEDICARE ==
--- NOTE | 2020-03-20 16:22 | CONSULTATION NOTE ---
Palliative Care Follow Up - Referral Referring Provider: Dr. Quang Lozada Time of Visit: [id number] [place] [facility] [place] Reason: Pain of neoplastic origin/met breast cancer to bone - Information Sources Records reviewed: Previous records reviewed History/Review of Systems obtained from: Patient Exam limitations: No limitations - History of Present Illness Update Brief HPI Update: This is a 74-year-old woman with recurrent metastatic breast cancer to the bone. She has a history of bilateral breast cancer diagnosed in 2017, and underwent a bilateral mastectomy and right-sided sentinel node biopsy. She did not tolerate the anastrozole, and discontinued it, and did not pursue radiation therapy. She reoccurred in June 2019 with extensive osseous metastatic disease, and a large destructive lesion in her sternum. She received radiation to her sternum, as well as T9-L3 which she completed in 2018. She has been taking Ibrance and Faslodex, as well as Xgeva every 4 weeks since August 2019. She has had fluctuating pain, and most recently exacerbated in her L-spine. Patient remains challenging given her opioid intolerance, her pain has some persistence to it, and does appear to be managed somewhat by her gabapentin 900 twice daily, but her pain fluctuates as far as sharp stabbing and worsening in her L1 area. Her opioid intolerance actually is severe itching, she is trialed oxycodone, hydromorphone, tramadol, in combination with Benadryl, doxepin, to try and ameliorate the pruritus. None have made it tolerable. She takes an oxycodone maybe once every 2 weeks when it is excruciating. She does use some topical Cannabinoids, and does use marijuana through smoking/vaping for man agement of her pain, but reports it does not work on her pain does helps her to be distracted and sleep. She has complex social situation, she does live alone, she does have a daughter and some friends for support. She recently had her ex- with dementia living with her, but that did not work out. She continues with financial stressors. She has been quite stressed with the COVID-19 restrictions, and feeling already more isolated. Social History - Living Situation Living arrangement: At home Living Situation: Alone Support System: Patient[place], she is quite busy. She does have good friends and community support that she can calls upon. Her daughter is doing her shopping for her every 2 weeks. Medications/Allergies - Medications Home Medications: Ambulatory Orders Medication Instructions Recorded Confirmed Citalopram [CeleXA] 40 mg PO DAILY tablet 07/14/17 03/20/20 Metoprolol Succinate 100 mg PO DAILY 08/29/19 03/20/20 oxyCODONE [Roxicodone] 10 mg PO Q4HR PRN 09/26/19 03/20/20 Methylphenidate [Ritalin] 5 - 10 mg PO BID PRN MDD 20 mg 11/20/19 03/20/20 Gabapentin 900 mg PO TID 12/15/19 03/20/20 Calcium Carbonate/Vitamin D3 1 tab PO DAILY 03/20/20 03/20/20 [Calcium 600-Vit D3 500 Softgel] dexAMETHasone [Dexamethasone] 1 mg PO DAILY MDD titrating to 4 mg 03/20/20 03/20/20 - Allergies Allergies/Adverse Reactions: Allergies Allergy/AdvReac Type Severity Reaction Status Date / Time codeine Allergy Emesis Verified 03/20/20 13:29 oxycodone Allergy Itching Verified 03/20/20 13:29 pseudoephedrine Allergy Hives Verified 03/20/20 13:29 hydromorphone AdvReac Itching Verified 03/20/20 13:29 tramadol AdvReac Itching Verified 03/20/20 13:29 Review of Systems - Constitutional Constitutional: reports: Fatigue, Weight stable. denies: Fever, Chills - Eyes Eyes: reports: Vision loss, Corrective lenses - Ears, Nose & Throat Ears, Nose & Throat: reports: Dry mouth - Cardiovascular Cardiovascular: reports: Decr. exercise tolerance - Respiratory Respiratory: denies: SOB at rest - Gastrointestinal Gastrointestinal: reports: Good appetite. denies: Constipation - Musculoskeletal Musculoskeletal: reports: Stiffness, Muscle weakness - Integumentary Integumentary: reports: Dryness - Neurological Neurological: reports: General weakness - Psychiatric Psychiatric: reports: Depression, Anxiety - Hematologic/Lymphatic Hematologic/Lymphatic: denies: Recurrent infections - All Other Systems All Other Systems: reports: Reviewed and negative Physical Exam - Vital Signs Pulse Rate: 74 Respiratory Rate: 18 Blood Pressure: 141/73 - Physical Exam General Appearance: positive: Alert, Mild distress, Anxious Eyes Bilateral: positive: Other (mild periorbital edema) ENT: positive: Other (masked) Respiratory: positive: No respiratory distress Abdomen: positive: Soft Skin: positive: Pallor, Dryness Extremities: positive: No pedal edema Neurologic/Psychiatric: positive: Oriented x3, Flat affect Palliative Care - POLST Patient has POLST: No POLST Status: Full Code Pain: Pain worsening, Location (lumbars area), Severity (8/10) Tiredness/Fatigue: Moderate (4-6) Drowsiness/Sedation: Moderate (4-6) Nausea: Mild (1-3) Anorexia: Mild (1-3) Dyspnea: None Depression: Moderate (4-6) Anxiety: Moderate (4-6) Feelings of wellbeing/Perceived Quality of Life: Fair, Acceptable Sleep: Variable sleep pattern Constipation: No - Palliative Care Discussion: Patient is expressing concern regarding her escalating pain, and difficulty with being able to find tools to manage. We did discuss range of options, with significant limitations regarding her intolerance of opioids with severe pruritus. Both altering pain pills and medications to manage pruritus have not so far come up with a good solution. She does feel more isolated, expressing grief and loss with COVID-19. She does have significant fear and concerns regarding this. Results - Lab Results Lab results reviewed: Yes Impression and Recommendations - Palliative Care Impression: This is a 74-year-old woman who presents with metastatic breast cancer, with mets to the bones only. She does have recalcitrant pain, significant side effects to opioids, and lives alone which adds to the challenge of titration of medications. Palliative care attempting to provide support for ongoing pain and symptom management and anticipatory guidance. Recommendations/Counseling Done: 1. Pain of neoplastic origin. Patient currently managed on gabapentin 900 mg a.m. and p.m. this is not been titrated up. She has been stable in the past, has periods of time where she is doing quite well, and then will have an exacerbation. She is unable to really identify what makes this better or worse. She has not titrated up beyond 1800 mg. We did discuss this was an option, and will add a titration of 300 mg midday for 3 days since 600 mg for 3 days sent up to 900 mg midday. Patient will stop if she becomes oversedated, we will evaluate for effect. Discussed also other options as she is opioid tolerant, with severe pruritus of multiple different medications. Discussed the role of dexamethasone in management of bone pain. Though she is long-term most likely going to need pain management, given her severity of her symptoms, will go ahead and trial. Patient has had poor side effects in past for high doses of prednisone, we discussed this is a mineralocorticoid, she may do better on it. We will test dose her with 1 mg dexamethasone, and she can titrate up every 2 to 3 days up to 4 mg. The goal to treat the underlying etiology as best we know as it is not clear exactly the reason for efficacy. She also wanted something for rescue dosing, we have trialed hydromorphone tramadol, she needs something more short acting, I am hesitant to trial methadone given her side effects, and long acting half-life. She is also opioid nurys enough, that fentanyl is not appropriate. We did discuss trying naltrexone off label, did prescribe 10 tablets, it is mostly used in chronic pain management with his thought it works and pain management by attenuating the pro inflammatory response initiated by microglia cell activation in the BEAMSTER. Endorphins are producing CNF in response to painful stimuli and this is an actual attempt to suppress those signals. Can also block mu receptors as far as being an opioid antagonist for pruritus. The other option might be to do compounded low-dose to counteract oxycodone if we end up without any response. 2. Anxiety. This is compounded by COVID-19, and her increased isolation. She does have multiple stressors including financial and complex social situation. 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 3. Advanced care planning. We had been meeting up to October, at that point in time she had felt much better, and was doing well with the Ritalin for her fatigue, and agreed to reach out when she needed further support. Will revisit advanced care planning documents next week. 4. Fatigue. This is multifactorial, added in complexity by using the gabapentin, marijuana, and fluctuating sleep patterns. She has found the Ritalin 5 mg every a.m. helpful, and uses a second dose as needed. Time Spent: 45 minutes with getting 50% of this done in counseling in pain and symptom management, will continue to trial medications with hope to find some combination to decrease her distress, palliative care to continue provide support and anticipatory guidance.
== END 2020-03-20 13:50 | disposition home or self-care (01) ==
LOC: PC 13:49
PROVIDERS: ATTEND Nurse Practitioner Adult Health
DX: Z51.5 Encounter for palliative care (principal); G89.3 Neoplasm related pain (acute) (chronic); C79.51 Secondary malignant neoplasm of bone; F41.9 Anxiety disorder, unspecified; R53.83 Other fatigue; Z79.899 Other long term (current) drug therapy; Z85.3 Personal history of malignant neoplasm of breast; Z92.3 Personal history of irradiation; Z59.8 Other problems related to housing and economic circumstances
CPT/HCPCS: 99215

== ENCOUNTER 2020-03-29 12:30 | Outpatient (CLI) | payer MEDICARE ==
--- NOTE | 2020-03-29 13:24 | CONSULTATION NOTE ---
Palliative Care Follow Up - Referral Referring Provider: Dr. 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 She has had difficulty tolerating any kind of medication including hormone therapy. She is currently though on Ibrance and Faslodex since 08/2019. She has had some radiation to her sternum spine and thigh, she continues on Xgeva every 4 weeks. She continues to have challenges with any kind of pain management given her severe pruritus with opioids, and am seeing her in follow-up. Unfortunately everything is been somewhat disappointing as far as anything that is helped. She has increased her gabapentin to 900 mg 3 times daily, has not noticed much improvement. She did trial the dexamethasone, was able to titrate up to 4 mg, unfortunately she felt this made her nauseated. She tried the naltrexone without any response, unfortunately she coupled that with her oxycodone and though she had absolutely no itching she also had no pain relief. She reports her pain is escalating, she has her original pain in mid thoracic area now it is radiating up further into the upper spine, and into her left shoulder. She still has a dull ache in her right thigh and her lower back. She reports usually her pain would be fairly fluctuating, and increase in intensity around 4:00 in the afternoon, now is moved up into the day around 11:00. She is using marijuana at the "cocktail hour", but this is not helping with pain relief just her anxiety and muscle tension. Patient had been referred back up to radiation therapy, having difficulty discerning if she got it a second time after our discussion, she is relaying th at she had a MRI done, but was unable to get the results because she was not able to go back up during the COVID crisis. She would still be willing if there were any places to be able to radiate, that might give her some pain relief to follow through on this. She agreed I could reach out to Dr. Scar MCGEE ON. Social History - Living Situation Living arrangement: At home Living Situation: Alone Support System: Lives alone, she does have a daughter and many friends for support. She has been quite stressed with the COVID-19 restrictions, and feeling much more isolated. Her daughter is doing shopping for her every 2 weeks. Medications/Allergies - Medications Home Medications: Ambulatory Orders Medication Instructions Recorded Confirmed Citalopram [CeleXA] 40 mg PO DAILY tablet 07/14/17 03/29/20 Metoprolol Succinate 100 mg PO DAILY 08/29/19 03/29/20 oxyCODONE [Roxicodone] 10 - 15 mg PO Q4HR PRN 09/26/19 03/29/20 Methylphenidate [Ritalin] 5 - 10 mg PO BID PRN MDD 20 mg 11/20/19 03/29/20 Gabapentin 900 mg PO TID 12/15/19 03/29/20 Calcium Carbonate/Vitamin D3 1 tab PO DAILY 03/20/20 03/29/20 [Calcium 600-Vit D3 500 Softgel] dexAMETHasone [Dexamethasone] 0.5 - 1 mg PO BID 03/20/20 03/29/20 Palbociclib [Ibrance] 125 mg PO DAILY PRN 03/27/20 03/29/20 - Allergies Allergies/Adverse Reactions: Allergies Allergy/AdvReac Type Severity Reaction Status Date / Time codeine Allergy Emesis Verified 03/20/20 13:29 oxycodone Allergy Itching Verified 03/20/20 13:29 pseudoephedrine Allergy Hives Verified 03/20/20 13:29 hydromorphone AdvReac Itching Verified 03/20/20 13:29 tramadol AdvReac Itching Verified 03/20/20 13:29 Review of Systems - Constitutional Constitutional: reports: Fatigue, Weakness, Weight stable. denies: Fever, Chills - Eyes Eyes: reports: Vision loss, Corrective lenses - Ears, Nose & Throat Ears, Nose & Throat: reports: Nasal congestion, Dry mouth - Cardiovascular Cardiovascular: reports: Decr. exercise tolerance. denies: Chest pain - Respiratory Respiratory: denies: SOB at rest - Gastrointestinal Gastrointestinal: reports: Nausea (with dexamethasone), Good appetite. denies: Vomiting - Musculoskeletal Musculoskeletal: reports: Back pain, Stiffness, Muscle weakness - Integumentary Integumentary: reports: Dryness - Neurological Neurological: reports: General weakness, Numbness (She reporting progressive numbness bilaterally in her feet and legs, slowly over the last several months since treatment started, and more acutely over the last couple weeks.), Memory problems (describes "chemo brain" reports word finding issues; slow to respond; memory difficulties) - Psychiatric Psychiatric: reports: Depression, Anxiety - Hematologic/Lymphatic Hematologic/Lymphatic: denies: Recurrent infections - All Other Systems All Other Systems: reports: Reviewed and negative Physical Exam - Vital Signs Pulse Rate: 62 Respiratory Rate: 18 Blood Pressure: 157/80 - Physical Exam General Appearance: positive: Alert, Mild distress Eyes Bilateral: positive: Normal inspection, No scleral icterus Neck: positive: Trachea midline Respiratory: positive: No respiratory distress Abdomen: positive: Soft Skin: positive: Pallor, Dryness, Rash (petechie on toes) Extremities: positive: Pedal edema (trace edema in feet) Neurologic/Psychiatric: positive: Oriented x3, Mood/affect nml, Flat affect Palliative Care - POLST Patient has POLST: No Pain: Pain worsening, Comment (see HPI) Tiredness/Fatigue: Severe (7-10) Drowsiness/Sedation: Moderate (4-6) Nausea: Mild (1-3) Anorexia: None Dyspnea: None Depression: Moderate (4-6) Anxiety: Moderate (4-6) Feelings of wellbeing/Perceived Quality of Life: Fair, Worsening (attributed to pain) Sleep: Variable sleep pattern Constipation: Yes Performance Status: Is limited at times by her pain, she does pace herself. She does have some activity intolerance which is walk out to the mailbox twice a week. She is able to manage her ADLs. She is needing to delegate household and yard tasks, though she is enjoying doing some gardening on her decks - Palliative Care Discussion: Patient is trying to frame her current situation as dealing with a chronic disease. She does understand the seriousness of her illness, is trying to set goals out ahead for herself. She is hoping by summer to be able to have a alliance party, she very much misses her friends, and is already isolated and feeling this more acutely. She does have supportive friends who are willing to help her, are staying in contact, and would be responsive if she needed anything. Results - Lab Results Lab results reviewed: Yes Impression and Recommendations - Palliative Care Impression: This is a 74-year-old woman who presents with metastatic breast cancer with mets to the bones only. Given her severe side effects to opioids, has been challenging to find commendation medication to address her escalating pain. Palliative care attempting to provide support for ongoing pain and symptom management and anticipatory guidance. Recommendations/Counseling Done: 1. Pain of neoplastic origin. Patient did titrate up gabapentin to 900 mg 3 times daily, most likely too soon to see if this is can be of assistance. Patient does have a neuropathic component to her lower extremity pain, but her most acute pain most likely is bone pain. Unfortunately this did not respond to dexamethasone, and she found it made her nauseated.What she did find is that the naltrexone did not work at all, so unclear if when she took the oxycodone, it was the dexamethasone or the naltrexone that counterbalanced the pruritus for her. Unfortunately it also counterbalanced any kind of pain relief for her. We will discontinue this. Discussed trial of low-dose dexamethasone half to 1 tab twice daily with her oxycodone to see if this will address the pruritus. If this does not, can have naltrexone compounded to 2 to 4 mg, and see if this might help with pruritus. At 50 mg dosing, most likely reversed all opioid effects.She reports she did have a lumbar MRI spine with radiation, never did follow-up on if there were further areas that can be radiated. She reports her pain has shifted some up into her left shoulder and back area, would be willing to revisit this. Call out to Dr. Scar MCGEE ON. The other medication and consider trying is Butrans patch, though this would be transdermal from persistent, and would not be able to use with opioids. 2. Nausea. Ondansetron 4 mg 1 every 6 ordered as needed, patient has no antiemetic available. We did discuss often dexamethasone is used for nausea, unfortunately did not tolerate at high doses, will try low dose with food. 3. Anxiety. This is been compounded by COVID-19, her increased isolation, and difficulty being able to address her pain. This has been a significant quality of life issue, and has been complicated in the context of finding a tool that she can tolerate. Patient is reaching out to friends, is trying to stay connected, and feels she has adequate social support at this point time. 4. Advanced care planning. Counseling provided regarding his corrected put this in a chronic illness model, though is still stage IV disease, with hope for extended survival. Patient has not done advanced care planning, will continue to revisit as patient allows. Time Spent: 45 minutes with greater than 50% of this done in counseling regarding pain and symptom management, coordination of care will follow-up with radiation oncology, and continue to trial medications/approaches to address patient's escalating pain
== END 2020-03-29 12:31 | disposition home or self-care (01) ==
LOC: PC 12:30
PROVIDERS: ATTEND Nurse Practitioner Adult Health
DX: Z51.5 Encounter for palliative care (principal); G89.3 Neoplasm related pain (acute) (chronic); R53.0 Neoplastic (malignant) related fatigue; F41.9 Anxiety disorder, unspecified; R41.89 Other symptoms and signs involving cognitive functions and awareness; R11.0 Nausea; R53.1 Weakness; C79.51 Secondary malignant neoplasm of bone; C50.919 Malignant neoplasm of unspecified site of unspecified female breast; Z79.899 Other long term (current) drug therapy; Z79.52 Long term (current) use of systemic steroids; Z79.891 Long term (current) use of opiate analgesic; Z90.13 Acquired absence of bilateral breasts and nipples
CPT/HCPCS: 99215

== ENCOUNTER 2020-06-04 21:44 | Outpatient (CLI) | payer MEDICARE ==
--- NOTE | 2020-06-04 21:50 | CONSULTATION NOTE ---
Palliative Care Follow Up - Referral Referring Provider: Dr. Quang Lozada Time of Visit: [id number] Referral setting: Home Referral Reason: Pain of neoplastic origin/Met Breast CA - Information Sources Records reviewed: Previous records reviewed History/Review of Systems obtained from: Patient Exam limitations: Clinical condition (patient with worsening cognitive status/memory) - History of Present Illness Update Brief HPI Update: This is a complex 74-year-old woman who was originally diagnosed with history of bilateral breast cancer in 2017. She underwent a bilateral mastectomy with right-sided sentinel lymph node biopsy and left axillary lymph node dissection, at [facility]. She was recommended to receive adjuvant hormonal therapy, but was unable to tolerate anastrozole. She had opted not to pursue adjuvant radiation therapy. She did pursue reconstruction, with the placement of tissue expanders, unfortunately presented with severe pain for 6 weeks and had to have them removed. She reports there was a recall on the product, and concern may have added to her risk for recurrence. She developed continuing persistent pain in 06/2019 she felt as a result of the above and had a CT scan that showed extensive ostial most metastatic disease involving both the axial and appendicular skeleton, including a large destructive lesion on her sternum. There was concern for an epidural tumor invasion in the mid thoracic spine level on the right but this is felt to be mild. At that time no visceral or soft tissue mets was noted. She also had an MRI of her thoracic and lumbar spine, and received palliative radiation to her sternum as well as to T9-L3 which she finished in 2018. She is currently on Ibrance and Faslodex since 08/2019, though she has had a break on the Ibrance that she was experiencing progressive nausea, and worsening fatigue. She did have follow-up radiation to her, sternum, spine and thigh and continues on Xgeva every 4 weeks. Unfortunately she remains quite challenging as she has severe pruritus with her opioids, and we have tried various approaches. Patient presents today after several weeks of worsening pain. She has multi- generator pain, she also has a history of head injury and shoulder injury and attributes part of her pain syndrome with the pain initiates at the base of her skull into her cervical spine radiating down into her left shoulder. She is awaiting follow-up with neurology, on 06/19 of concern is are limited ability to impact her levels of pain, the only medication she has really been able to tolerate has been gabapentin, she is currently titrated up to 900 mg 3 times daily, but has found that more sedating, and at baseline patient is in somewhat slow with cognition since her diagnosis of breast cancer per her report, but has worsened over the last couple months, including difficulty with concentration, reading, and memory. She has been trialed on multiple different opioids, with the resulting effect of severe pruritus. She was in trialed on dexamethasone with escalating doses to help her bone pain, but was unable to tolerate the steriods as it caused her nausea. Also trialed her on naltrexone as an alternative in a desperate attempt to at least relieve her acute breakthrough pain. Of note this did relieve her pruritus but did not help with her pain, and even with small doses negated the effect of the oxycodone. She has trialed diclofenac, but had residual stomach pain and nausea. And currently has settled with oxycodone 15 to 20 mg with 1 mg of dexamethasone and Benadryl 25 mg and this takes the edge off the pruritus, but does cause her to just go to sleep. She does still get pain relief but does not present with a good solution and uses this for when pain is "excrutiating". She has been offered fentanyl patch as an alternative, we discussed Butrans patch, as well as low-dose methadone. She is declined at this point in time, as her acute pain is intermittent in nature, and the gabapentin has controlled her background pain. She is somewhat hesitant to commit to a long acting medication. But these would be alternatives, she does live alone and would need supervised support. Of concern, as patient has developed some worsening lower extremity neuropathy of numbness, and tingling. This is greater in her left than her right, she does have hammer toes and history of left ankle injury. Her gait is somewhat ataxic and worsening, she denies any trouble with bowel or bladder. Her pain in her right chest where she had original radiation, is worsening. Patient has long-term fatigue, is using the Ritalin 5 to 10 mg on days she has things to do. She has had persistent nausea, taste changes, and is challenged with COVID-19, to access her community support. She is quite isolated and feels quite lonely. She does have her cousin coming to help for about a month, and is looking forward to having both practical support as well as social support. 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 [place] as she is currently challenged with caring for her ex who has alzheimers as well as working. She does have her own home, is found it challenging to be able to keep up in care for her the yard and housecleaning. She does not qualify for any assistance, though is experiencing financial stressors so difficult to hire assistance. She is looking forward to her cousin coming to help, he will put in some grab bars, and help with transportation. He had helped her after her original surgery, so feels confident looking forward to his arrival. He will have quarantine for a couple weeks prior to showing up. She does have anxiety around the COVID-19 and being exposed.. Medications/Allergies - Medications Home Medications: Ambulatory Orders Medication Instructions Recorded Confirmed Citalopram [CeleXA] 40 mg PO DAILY tablet 07/14/17 06/04/20 Metoprolol Succinate 100 mg PO DAILY 08/29/19 06/04/20 oxyCODONE [Roxicodone] 10 - 15 mg PO Q4HR PRN 09/26/19 06/04/20 Methylphenidate [Ritalin] 5 - 10 mg PO BID PRN MDD 20 mg 11/20/19 06/04/20 Calcium Carbonate/Vitamin D3 1 tab PO DAILY 03/20/20 06/04/20 [Calcium 600-Vit D3 500 Softgel] dexAMETHasone [Dexamethasone] 1 mg PO PRN PRN MDD with oxycodone 03/20/20 06/04/20 Palbociclib [Ibrance] 125 mg PO DAILY PRN 03/27/20 06/04/20 Ondansetron [Ondansetron Odt] 4 mg PO Q6HR PRN 06/04/20 06/04/20 Pregabalin 150 mg PO TID 06/04/20 06/04/20 - Allergies Allergies/Adverse Reactions: Allergies Allergy/AdvReac Type Severity Reaction Status Date / Time codeine Allergy Emesis Verified 05/22/20 13:08 oxycodone Allergy Itching Verified 05/22/20 13:08 pseudoephedrine Allergy Hives Verified 05/22/20 13:08 hydromorphone AdvReac Itching Verified 05/22/20 13:08 tramadol AdvReac Itching Verified 05/22/20 13:08 Review of Systems - Constitutional Constitutional: reports: Fatigue, Poor appetite, Weight gain. denies: Fever, Chills - Eyes Eyes: reports: Vision loss, Corrective lenses - Ears, Nose & Throat Ears, Nose & Throat: reports: Dry mouth - Cardiovascular Cardiovascular: reports: Lightheadedness, Decr. exercise tolerance - Respiratory Respiratory: reports: SOB with exertion. denies: SOB at rest - Gastrointestinal Gastrointestinal: reports: Nausea (usually able to manage with yogurt; worse on empty stomach; uses ondansetron 2-3 x week), Poor appetite, Other (taste changes). denies: Abdominal pain, Constipation, Vomiting - Genitourinary Genitourinary: reports: Frequency, Urgency - Musculoskeletal Musculoskeletal: reports: Muscle pain, Back pain, Muscle aches, Stiffness, Limited range of motion, Muscle weakness, Joint pain - Integumentary Integumentary: reports: Dryness, Hair changes (thinning) - Neurological Neurological: reports: General weakness, Dizziness, Numbness (bilaterally into lower legs; left greater than right; new over last 2 weeks), Memory problems - Psychiatric Psychiatric: reports: Depression, Anxiety - Hematologic/Lymphatic Hematologic/Lymphatic: denies: Recurrent infections - All Other Systems All Other Systems: reports: Reviewed and negative Physical Exam - Vital Signs Temperature: 96.5 C Pulse Rate: 67 Respiratory Rate: 18 O2 Saturation: 99 (ra @ rest) Blood Pressure: 122/64 - Physical Exam General Appearance: positive: Mild distress, Other (slow to respond) Eyes Bilateral: positive: Normal inspection, No scleral icterus Neck: positive: Trachea midline Cardiovascular: positive: Regular rate & rhythm Respiratory: positive: No respiratory distress, Breath sounds nml Abdomen: positive: Non-tender, Soft, Nml bowel sounds Skin: positive: Pallor Extremities: positive: No pedal edema Neurologic/Psychiatric: positive: Oriented x3, Weakness, Depressed mood/affect, Flat affect Palliative Care - POLST Patient has POLST: No POLST Status: Full Code Pain: Pain worsening, Location (see HPI) Tiredness/Fatigue: Severe (7-10) Drowsiness/Sedation: Moderate (4-6) Nausea: Mild (1-3) Anorexia: Moderate (4-6) Dyspnea: Mild (1-3) Depression: Moderate (4-6) Anxiety: Severe (7-10) Feelings of wellbeing/Perceived Quality of Life: Fair, Acceptable Sleep: Sleeps well Constipation: No Performance Status: Patient is quite sedentary, this is imposed by her pain. She has been quite active most of her life, and finds this quite frustrating. Her gait is somewhat ataxic, at this point time she can meet her ADL needs, but having more troubles with IADLs. I would put her at a PPS of 60% - Palliative Care Discussion: Patient's current understanding of her illness, she could have 1 year to 10 years, she is hoping to at least see herself to the elections and past. She reports she does have a "list" of things she knows she needs to work on, she has not done her advance care planning. She would want her daughter to be her D POA, but has both her daughter and his son recommended she clarify this in the proper paperwork. Did review and provide a simple form. At this point in time she would accept hospitalization, as well as CPR, counseling provided regarding the continuum of care, as patient's illness progresses, given her concern for not wanting to have "heroic measures", or prolong suffering would continue to revisit this in the context of her disease trajectory. She is quite clear when her time comes, she does not want to linger, she would like to take advantage of DWD. She is due to see her PCP in the next few weeks, recommended that this get documented as part of the process, and her healthcare records. Recommended she complete her D POA, given 5 wishes, as well as other advance care planning documents to facilitate conversation and clarification of goals with her family. Impression and Recommendations - Palliative Care Impression: This is a 74-year-old woman who presents with metastatic breast cancer to the bones, given her severe side effects of pruritus to opioids, has been challenging to find medication to address her escalating pain. She is also experiencing some increase in neurological symptoms, cognitive impairment, and escalating pain. Palliative care providing support for ongoing symptom management and anticipatory guidance. Recommendations/Counseling Done: 1. Pain of neoplastic origin. Patient has been on gabapentin 900 mg three times a day, she does have a neuropathic component of her pain, particularly in her lower extremities. She did get some improvement with the increase gabapentin and her "background pain", but has felt like it has impacted and worsened her cognitive issues. Will switch her to pregabalin equivalent dosing of 150 mg 3 times daily, with the hopes to improve side effects, and clarity. She does have increasing neuropathic symptoms radiating down her legs, along with some numbness and tingling. She has not had any change in bowel or bladder habits, but given known mets to the spine, is of concern. Did reach out to her oncologist Dr. Yolanda SMITH, unclear when she has had [place] with recommendation to consider scans with her new findings. She had been referred back to radiation therapy unclear if she had further treatment or follow-up in her reporting she said she had a telemedicine visit. Will need to get records. She is having more STM issues, it is challenging to get a good handle on the complexity of her pain. She waits until evening, and does use marijuana for her pain control at the end of the day. She finds her pain is escalated at that point time, does not give her much relief, but does help so she can sleep. She will continue for both oxycodone 10 to 15 mg with 1 mg of dexamethasone for acute breakthrough pain, did encourage her to try and drop the Benadryl as it is adding to her sedation. Patient was confused in the context she asked for more oxycodone, but does have original [facility], so has plenty available for lead nurse. 2. Nausea. This remains low-grade and intermittent in nature. She does find if she uses yogurt or eat something, it does help with her discomfort. She is using ondansetron 3 or 4 times a week. She reports taste changes, food aversions, and challenges with having energy for food prep. She reports she is actually gained weight not lost weight. 3. Anxiety. She continues to be challenged with the increased isolation of COVID-19, she does have a cousin coming she is looking forward to both the practical and social support of this. She is reaching out to friends and trying to stay connected, which she does not qualify for [place] PES, and at this point in time does not feel like she needs to meet with a emergency medical tech for resources. 4. Advanced care planning. Did encourage completion of her DPOAE. Patient does have a list of things she knows she needs to complete but having difficulty following through with her cognitive changes. Up to this point in time she has been responding to her treatment, did encourage continue working on her advanced care planning documents, as well as to let her wishes be known to her primary regarding eventual DWD, but we discussed this would be in the context only if she were in her last 6 months of her disease trajectory. Time Spent: 65 minutes with greater than 50% of this done in counseling regarding pain and symptom management, advanced care planning. Coordination of care and anticipatory guidance.
== END 2020-06-04 21:45 | disposition home or self-care (01) ==
LOC: PC 21:44
PROVIDERS: ATTEND Nurse Practitioner Adult Health
DX: Z51.5 Encounter for palliative care (principal); G89.3 Neoplasm related pain (acute) (chronic); C50.912 Malignant neoplasm of unspecified site of left female breast; C50.911 Malignant neoplasm of unspecified site of right female breast; C79.51 Secondary malignant neoplasm of bone; M54.2 Cervicalgia; M25.512 Pain in left shoulder; R07.9 Chest pain, unspecified; G62.9 Polyneuropathy, unspecified; R11.0 Nausea; F41.9 Anxiety disorder, unspecified; R26.0 Ataxic gait; R53.83 Other fatigue; R41.3 Other amnesia; L29.9 Pruritus, unspecified; T40.605D Adverse effect of unspecified narcotics, subsequent encounter; H54.7 Unspecified visual loss; Z79.891 Long term (current) use of opiate analgesic; Z79.52 Long term (current) use of systemic steroids; Z79.899 Other long term (current) drug therapy; Z92.3 Personal history of irradiation
CPT/HCPCS: 99350

== ENCOUNTER 2020-08-06 13:54 | Outpatient (CLI) | payer MEDICARE ==
--- NOTE | 2020-08-06 14:00 | XRAY Report ---
PROCEDURE: Lumbar Spine Complete INDICATIONS: LOW BACK PAIN TECHNIQUE: 5 views of the lumbar spine were acquired. COMPARISON: None. FINDINGS: Bones: 5 [id number] vertebrae are present. There is trace retrolithesis of L2 on L3, trace ant erolithesis of L4-5, L5-S1. Multilevel disc space narrowing, most notable L3-4. Mild to moderate fo raminal narrowing at L5-S1. No vertebral body compression fractures. No suspicious bony lesions. Soft tissues: Overlying bowel gas pattern is normal. No suspicious soft tissue calcifications. IMPRESSION: Multilevel degenerative changes. Reviewed by: Milly Ford MD on 08/06/2020 1:59 PM PDT Approved by: Milly Ford MD on 08/06/2020 1:59 PM PDT Station ID: [id number]
--- NOTE | 2020-08-06 14:02 | XRAY Report ---
PROCEDURE: Thoracic Spine 2 View INDICATIONS: THORACIC BACK PAIN TECHNIQUE: 3 views of the thoracic spine were acquired. COMPARISON: Xray lumbar spine 08/06/20 FINDINGS: Bones: No fractures or dislocations. No suspicious bony lesions. 12 pairs of ribs are noted, and a ppear intact where visualized. Multilevel degenerative changes. Soft tissues: No paravertebral stripe thickening. IMPRESSION: Multilevel degenerative changes. Reviewed by: Milly Ford MD on 08/06/2020 2:01 PM PDT Approved by: Milly Ford MD on 08/06/2020 2:01 PM PDT Station ID: [id number]
== END 2020-08-06 23:59 | disposition home or self-care (01) ==
LOC: DI.WCP 13:54
PROVIDERS: ATTEND Family Medicine
DX: M51.36 Other intervertebral disc degeneration, lumbar region (principal); M51.34 Other intervertebral disc degeneration, thoracic region; M54.89 Other dorsalgia
CPT/HCPCS: 72070; 72110

== ENCOUNTER 2020-08-14 07:00 | Outpatient (CLI) | payer MEDICARE ==
[2020-08-14 18:51] LABS: GLUCOSE, URINE (UA) NEGATIVE (NEGATIVE); KETONES,URINE (UA) TRACE mg/dL (NEGATIVE); LEUKOCYTE ESTERASE, URINE NEGATIVE (NEGATIVE); NITRITE,URINE NEGATIVE (NEGATIVE); OCCULT BLOOD,URINE TRACE-INTA (NEGATIVE); PROTEIN,URINE TRACE mg/dL (NEGATIVE); UROBILINOGEN,URINE 1 (NORMAL) E.U./dL (NORMAL)
[2020-08-14 19:16] LABS: BACTERIA,URINE None Seen /HPF (None Seen); BILIRUBIN,URINE NEGATIVE (NEGATIVE); CLARITY,URINE CLOUDY (CLEAR); ICTOTEST,URINE NEGATIVE; RBC,URINE None Seen /HPF (0-5); SQUAMOUS EPITHELIAL CELL,UR NONE SEEN (<= Few)
[2020-08-14 19:17] LABS: AMORPHOUS SEDIMENT,UR Marked /LPF
== END 2020-08-14 23:59 | disposition home or self-care (01) ==
LOC: LAB.R 07:00
PROVIDERS: ATTEND Nurse Practitioner Family
DX: R35.0 Frequency of micturition (principal); R30.0 Dysuria
CPT/HCPCS: 81001; 87086

== ENCOUNTER 2020-08-27 13:55 | Outpatient (CLI) | payer MEDICARE ==
[2020-08-27 19:37] LABS: CHOLESTEROL 342 mg/dL; CREATININE 0.9 mg/dL (0.4-1.0); HDL CHOLESTEROL 43 mg/dL
[2020-08-27 19:57] LABS: LDL CHOLESTEROL,DIRECT 108 mg/dL; LDLD/HDL RATIO 2.5 (<4.4)
== END 2020-08-27 23:59 | disposition home or self-care (01) ==
LOC: LAB.WCP 13:55
PROVIDERS: ATTEND Family Medicine
DX: G45.9 Transient cerebral ischemic attack, unspecified (principal)
CPT/HCPCS: 36415; 80061; 82565; 83721

== ENCOUNTER 2020-09-03 14:30 | Outpatient (CLI) | payer MEDICARE ==
--- NOTE | 2020-09-03 18:15 | CONSULTATION NOTE ---
Palliative Care Follow Up - Referral Referring Provider: Dr. Quang Lozada Time of Visit: [id number] Referral setting: Home Referral Reason: s/p CVA/Met Breast Ca to bones/Pain of neoplastic origin - Information Sources Records reviewed: Previous records reviewed History/Review of Systems obtained from: Patient Exam limitations: Clinical condition (patient with mild STM deficits) - History of Present Illness Update Brief HPI Update: This is a complex 75-year-old woman who was originally diagnosed with a history of bilateral breast cancer in 2017, when she underwent a bilateral mastectomy with right-sided sentinel lymph node biopsy and left axillary lymph node dissection. She did pursue reconstruction with placement of tissue expanders, and 14 with severe pain had to have them removed. She did develop persistent pain 06/2019 as result of the above and had a CT scan that showed extensive bone mets, and a large destructive lesion on her sternum. She is currently on Ibrance and Faslodex since 08/2019, she has had radiation, and continues to struggle with fluctuating pain related to her breast cancer. Patient unfortunately has had some kind of CVA, she did not access urgent or ED care related to costs. She felt like they were going to be able to do anything, she has continued to improve, with findings with mostly aphasia and cognitive changes. She did see her PCP, the plan is for her to have a MRI of her brain, and neck scan if follow up. Her syntax, word finding, and aphasia has continued to improve. She did lose herself a few times in the conversation, but was able to recover with reminders. Her gait is somewhat ataxic, but no specific deficits noted as far as strength and balance. Unfortunately she has had a couple falls with injury to her tailbone and to her right upper thoracic's ribs and spine. She continues to be challenged with escalating pain levels, these fluctuate but do build. She is intolerant of opioids and developed severe pruritus. She has not taken her oxycodone 30 mg with 2 mg dexamethason for couple of weeks yet.She continues on the pregabalin 150 mg 3 times daily, she does have neuropathic component to her pain, with left leg numbness and discomfort currently manageable. This episode did give a chance for her and her children have conversations regarding end-of-life planning, advance care planning, and what would be acceptable as far as further intervention. Past Medical History: Fatigue, hypertension, hyperlipidemia, COPD, history of head injury, type 2 diabetes, GERD, incontinence, chronic vision loss, chronic hearing loss, depression, anxiety, osteoarthritis, chronic back pain, bilateral breast cancer, recurrent metastatic breast cancer to the bone including T and L-spine and sternum. 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 [place] is not available as a caregiver, as she is caring for patient's ex- who has Alzheimer's. She recently had her son visiting, who is able to support her through this last episode, they have done application for [place]. Patient does have a group of supportive friends, they are rehab focus, had been able to help her as far as providing support and instruction with her deficits. Medications/Allergies - Medications Home Medications: Ambulatory Orders Medication Instructions Recorded Confirmed Citalopram [CeleXA] 40 mg PO DAILY tablet 07/14/17 09/04/20 Metoprolol Succinate 100 mg PO DAILY 08/29/19 09/04/20 oxyCODONE [Roxicodone] 20 - 30 mg PO Q4HR PRN 09/26/19 09/04/20 Methylphenidate [Ritalin] 5 - 10 mg PO BID PRN MDD 20 mg 11/20/19 09/04/20 Calcium Carbonate/Vitamin D3 3 tab PO DAILY 03/20/20 09/04/20 [Calcium 600-Vit D3 500 Softgel] dexAMETHasone [Dexamethasone] 2 - 4 mg PO PRN PRN MDD with 03/20/20 09/04/20 oxycodone Palbociclib [Ibrance] 125 mg PO DAILY PRN 03/27/20 09/04/20 Ondansetron [Ondansetron Odt] 4 mg PO Q6HR PRN 06/04/20 09/04/20 Pregabalin 150 mg PO TID 06/04/20 09/04/20 Rosuvastatin Calcium 10 mg PO DAILY 09/04/20 09/04/20 - Allergies Allergies/Adverse Reactions: Allergies Allergy/AdvReac Type Severity Reaction Status Date / Time codeine Allergy Emesis Verified 08/28/20 12:33 oxycodone Allergy Itching Verified 08/28/20 12:33 pseudoephedrine Allergy Hives Verified 08/28/20 12:33 hydromorphone AdvReac Itching Verified 08/28/20 12:33 tramadol AdvReac Itching Verified 08/28/20 12:33 Review of Systems - Constitutional Constitutional: reports: Fatigue, Weight stable - Eyes Eyes: reports: Vision loss, Corrective lenses - Ears, Nose & Throat Ears, Nose & Throat: reports: Nasal congestion - Cardiovascular Cardiovascular: reports: Decr. exercise tolerance. denies: Edema - Respiratory Respiratory: denies: SOB at rest - Gastrointestinal Gastrointestinal: reports: Early satiety (eats a main meal daily). denies: Constipation - Genitourinary Genitourinary: reports: Frequency, Incontinence. denies: Dysuria - Musculoskeletal Musculoskeletal: reports: Back pain, Muscle aches, Stiffness, Muscle weakness - Integumentary Integumentary: reports: Dryness, Nail changes (left toe nail still problematic) - Neurological Neurological: reports: General weakness, Dizziness, Numbness (left LE), Memory problems, Abnormal gait (slightly ataxic), Slurred speech (improvoed still halting). denies: Headache - Psychiatric Psychiatric: reports: Depression, Anxiety - Hematologic/Lymphatic Hematologic/Lymphatic: reports: Anemia. denies: Recurrent infections - All Other Systems All Other Systems: reports: Reviewed and negative Physical Exam - Vital Signs Temperature: 95.4 C (room is very cold) Pulse Rate: 72 Respiratory Rate: 16 O2 Saturation: 99 (ra @ rest) Blood Pressure: 122/78 - Physical Exam General Appearance: positive: No acute distress, Alert, Other (dressed and groomed) Eyes Bilateral: positive: Normal inspection ENT: positive: No signs of dehydration Neck: positive: Trachea midline Cardiovascular: positive: Regular rate & rhythm, No murmur Respiratory: positive: No respiratory distress, Breath sounds nml. negative: Wheezes, Rales Abdomen: positive: Non-tender, Soft, Nml bowel sounds Skin: positive: Pallor, Other (Right great toenail thickened and elevated compared to left without discharge or surrounding erythema. Nontender to touch) Extremities: positive: No pedal edema Neurologic/Psychiatric: positive: Oriented x3, Mood/affect nml, Flat affect, Other (words halting; some word finding; slow to respond; improved from last weeks phone conversation; patient reports improvement in processing but notes deficit) Palliative Care - POLST Patient has POLST: No POLST Status: Full Code Pain: Comment (reports residual pain on tailbone/right thoracic area from fall) Tiredness/Fatigue: Moderate (4-6) Drowsiness/Sedation: Mild (1-3) Nausea: None Anorexia: Mild (1-3) Dyspnea: None Depression: Mild (1-3) Anxiety: Moderate (4-6) Feelings of wellbeing/Perceived Quality of Life: Fair, Acceptable Sleep: Sleeps well Constipation: No Performance Status: Patient does feel current bathroom status and set up is helping, she does need assistance with some household tasks. She is able to ambulate in her home, she does spend quite a bit of time sedentary. We did discuss about her restarting physical therapy, she has had in the past and feels it may be of benefit. - Palliative Care Discussion: Patient did set up her D POA, with Giselle Thornton [phone] as primary and second choice would be her son Sebastián Lindsay, [place], [place] [phone]. She does have a living directive to physicians, that is since she says if she were terminal or unable to improve she would want to be a DO NOT RESUSCITATE at that point, and no tube feedings. Currently patient does feel her quality of life is good, if she were to have some kind of event she would want resuscitation she does not feel like she is at a place as a DNA R. She is quite clear though if her quality of life worse that she were not to be able to return to a level of independence, if she were to be confused or unable to speak for herself or care for herself she would want to be a DNA R at that point in time, and not to prolong any suffering. We did discuss at some point if she were to transition to end-of-life care, she does most likely going to need a plan, her daughter does work and is most likely not available as her primary caregiver, though she does feel her son may be available at that point. She is very much interested in continue to focus on quality of life, and quantity as well, she is continuing with treatment, and would accept interventions to prolong her life. I did point out though she did choose in an acute event, not to seek medical care, and the sequela of this could have been more dramatic than it was, she has reflected as such then and has agreed that given her goals that she would seek further intervention next time. She is recently made connections with her half sisters, as it turns out she did not know into her mother passed, that her father is not her biological father, this has been a bit of an adventure for her in learning more about her other half sisters. Results - Lab Results Lab results reviewed: Yes Impression and Recommendations - Palliative Care Impression: This is a 75-year-old female with metastatic breast cancer for the bones, with recent development of expressive aphasia, most likely status post stroke. Patient does remain complex, with allergies/pruritus to opioids, she does live alone, and now has concerns regarding recent deficits. Palliative care continue to provide support for pain and symptom management and coordination of care. Recommendations/Counseling Done: 1. Status post CVA. Patient does have still some residual expressive aphasia, she has had some dysphagia, but has been working with her friends to her speech therapist, to decrease her aspiration risk. Her gait is somewhat ataxic, recommended return to physical therapy. She does have a pending MRI/neck scan which she says has been approved through her insurance, recommended she call scheduling to expedite this. She has been started on rosuvastatin and has tolerated this thus far. Recommended it would be helpful to know what residual or area of possible damage exists, to be able to further guide what kind of therapies may help her in recovery. 2. Pain of neoplastic origin. Patient continues to be challenged with fluctuating pain levels, she is using marijuana with only mild to moderate success, she is on pregabalin for her neuropathic component of the pain 150 mg 3 times daily does appear to be helpful. She does have oxycodone using 30 mg with dexamethasone, unfortunate last time she did have some pruritus, recommended to try 3 mg she only uses this when her pain is overwhelming. We did discuss in the context of other options still left undone, would consider starting her on baby doses of fentanyl 12 mcg patch, and build slowly to see if could tolerate. At this point in time she feels her pain is adequately managed, and continues to evaluate. 3. Anxiety. She continues to be challenged with multiple health issues, as well as financial stressors. She has been working with her daughter filling out [place], feels that would be of support especially for low energy days and transportation. Has been offered medical palliative care social service manager, has continued to decline but will revisit depending on outcome of [place] application. 4. Advanced care planning. Patient did finish her advance care planning documents, do have copy in the chart and and MARIANO Sears. Patient at this point in time still wants to be a full code, though does have fairly specific criteria of what would not be acceptable quality of life. She does understand given the complexity of her social situation, would need to have further conversations about long-term planning in the future if she were to start to decline. Patient continues want to focus on quality and quantity of life. Palliative care continue provide support for pain and symptom management and psychosocial support. Time Spent: 60 minutes with greater than 50% of this done in counseling regarding pain and symptom management, goals of care, and anticipatory guidance
== END 2020-09-03 14:31 | disposition home or self-care (01) ==
LOC: PC 14:30
PROVIDERS: ATTEND Nurse Practitioner Adult Health
DX: Z51.5 Encounter for palliative care (principal); I69.391 Dysphagia following cerebral infarction; I69.320 Aphasia following cerebral infarction; I69.319 Unspecified symptoms and signs involving cognitive functions following cerebral infarction; G89.3 Neoplasm related pain (acute) (chronic); C50.919 Malignant neoplasm of unspecified site of unspecified female breast; C79.51 Secondary malignant neoplasm of bone; F41.9 Anxiety disorder, unspecified; E11.9 Type 2 diabetes mellitus without complications
CPT/HCPCS: 99350

== ENCOUNTER 2020-10-31 14:13 | Outpatient (CLI) | payer MEDICARE ==
[2020-10-31] MEDS ORDERED: GADOBUTROL 10 MMOL/10 ML VIAL ONE (14:28)
[2020-10-31] MEDS ORDERED: GADOBUTROL 10 MMOL/10 ML VIAL IVP ONE (15:25)
--- NOTE | 2020-10-31 16:27 | MRI Report ---
PROCEDURE: Brain W/WO INDICATIONS: TIA CONTRAST: IV CONTRAST: Gadavist ml: 9 TECHNIQUE: Noncontrast axial T1 spin echo, axial T2 fast spin echo, sagittal and axial FLAIR, coronal T2 fast sp in echo, axial gradient echo, axial diffusion and ADC through the brain. After the administration of contrast, axial and coronal T1 spin echo with fat saturation through the brain. COMPARISON: CT head 11/05/2015, 04/02/2014 and 03/26/2014. FINDINGS: Image quality: Excellent. CSF spaces: Basal cisterns are patent. No extra-axial fluid collections. Ventricles are normal in size and shape. Brain: No midline shift. No intracranial bleeds. There is a 0.9 x 1.0 x 1.0 cm enhancing left cereb ellar pontine angle/internal auditory Canal extra-axial mass which may represent schwannoma or mening ioma. There is mild cerebral volume loss for age. There is mild to moderate periventricular white ma tter chronic small vessel ischemic change. The brainstem appears normal. Diffusion-weighted images demonstrate no acute ischemic insults. No chronic ischemic insults. Normal intravascular flow voids are present. Dural sinuses demonstrate normal postcontrast enhancement. Skull and face: Calvarial marrow is normal in signal. Orbits appear normal. Sinuses: Sinuses and mastoids appear clear. IMPRESSION: 1. No acute intracranial disease process. 2. No areas of acute or chronic infarction. 3. 0.9 x 1.0 x 0.1 cm enhancing left CPA/IAC extra-axial mass concerning for vestibular schwannoma or meningioma. 4. Mild, diffuse cerebral volume loss. 5. [id number] periventricular and subcortical white matter chronic microvascular ischemic raman e Reviewed by: Juana Khoury MD, PhD on 10/31/2020 4:26 PM PST Approved by: Juana Khoury MD, PhD on 10/31/2020 4:26 PM PST Station ID: [id number]
== END 2020-10-31 14:14 | disposition home or self-care (01) ==
LOC: DI 14:13
PROVIDERS: ATTEND Family Medicine
DX: R94.02 Abnormal brain scan (principal); G45.9 Transient cerebral ischemic attack, unspecified
CPT/HCPCS: 70553; 93880; A9585

== ENCOUNTER 2020-10-31 14:15 | Outpatient (CLI) | payer MEDICARE ==
--- NOTE | 2020-10-31 16:52 | Ultrasound Report ---
PROCEDURE: Carotid Doppler Complete INDICATIONS: TIA TECHNIQUE: Color and pulse Doppler interrogation was performed of both carotid systems, with image documentation and velocity measurements. COMPARISON: None. FINDINGS: Right side: Common carotid artery peak systolic velocity: 43 cm/sec. Internal carotid artery peak systolic velocity: 110 cm/sec. Internal carotid artery end diastolic velocity: 23 cm/sec. External carotid artery peak systolic velocity: 74 cm/sec. ICA/CCA peak systolic ratio: 2.5 . Ballard scale imaging description: Moderate plaque at the bifurcation Percent internal carotid artery stenosis: Less than 50% . Vertebral artery: Flow direction is antegrade. Left side: Common carotid artery peak systolic velocity: 44 cm/sec. Internal carotid artery peak systolic velocity: 78 cm/sec. Internal carotid artery end diastolic velocity: 12 cm/sec. External carotid artery peak systolic velocity: 65 cm/sec. ICA/CCA peak systolic ratio: 1.7 . Ballard scale imaging description: Moderate plaque at the bifurcation. Percent internal carotid artery stenosis: And 50% . Vertebral artery: Flow direction is antegrade. IMPRESSION: Less than 50% stenosis of the internal carotid arteries bilaterally. The estimate of stenosis included in the report of the imaging study was calculated using the NASCET method Reviewed by: Milly Ford MD on 10/31/2020 4:51 PM PST Approved by: Milly Ford MD on 10/31/2020 4:51 PM PST Station ID: [id number]
== END 2020-10-31 14:16 | disposition home or self-care (01) ==
LOC: DI 14:15
PROVIDERS: ATTEND Family Medicine
DX: G45.9 Transient cerebral ischemic attack, unspecified (principal)
CPT/HCPCS: 93880

== ENCOUNTER 2020-11-05 14:11 | Outpatient (CLI) | payer MEDICARE ==
[2020-11-05 18:37] LABS: HGB - HEMOGLOBIN 12.6 g/dL (12.0-16.0); LYMPHOCYTES # (AUTO) 0.9 10^3/uL (1.5-3.5); LYMPHOCYTES % (AUTO) 29.1 %; MEAN CORPUSCULAR HEMOGLOBIN 34.3 pg (27.0-31.0); MEAN CORPUSCULAR HGB CONC 33.6 g/dL (32.0-36.0); MEAN CORPUSCULAR VOLUME 102.2 fL (81.0-99.0); MEAN PLATELET VOLUME 9.7 fL (7.9-10.8); MONOCYTES # (AUTO) 0.3 10^3/uL (0.0-1.0); MONOCYTES % (AUTO) 8.1 %; NEUTROPHILS # (AUTO) 1.9 10^3/uL (1.5-6.6); NEUTROPHILS % (AUTO) 60.5 %; PLT - PLATELET COUNT 173 10^3/uL (130-450); RED BLOOD COUNT 3.67 10^6/uL (4.20-5.40); RED CELL DISTRIBUTION WIDTH 13.4 % (12.0-15.0); WHITE BLOOD COUNT 3.1 x10^3/uL (4.8-10.8)
[2020-11-05 18:50] LABS: ALBUMIN 3.7 g/dL (3.2-5.5); ALBUMIN/GLOBULIN RATIO 1.4 (1.0-2.2); ALKALINE PHOSPHATASE 51 IU/L (42-121); ALT ALANINE AMINOTRANSFERASE 13 IU/L (10-60); AST ASPARTATE AMINOTRANSFERASE 16 IU/L (10-42); BILIRUBIN,TOTAL 0.7 mg/dL (0.2-1.0); BUN - BLOOD UREA NITROGEN 10 mg/dL (6-20); CALCIUM 9.4 mg/dL (8.5-10.3); CARBON DIOXIDE - CO2 29 mmol/L (21-32); CHLORIDE 98 mmol/L (101-111); CHOL/HDL RATIO 4.6 (<4.4); CHOLESTEROL 214 mg/dL; CREATININE 0.7 mg/dL (0.4-1.0); GLUCOSE 234 mg/dL (70-100); HDL CHOLESTEROL 47 mg/dL; SODIUM 138 mmol/L (135-145); TOTAL PROTEIN 6.3 g/dL (6.7-8.2)
[2020-11-05 19:24] LABS: LDL CHOLESTEROL,DIRECT 71 mg/dL; LDLD/HDL RATIO 1.5 (<4.4)
[2020-11-05 19:36] LABS: HEMOGLOBIN A1c% 8.3 % (4.27-6.07)
== END 2020-11-05 23:59 | disposition home or self-care (01) ==
LOC: LAB.WCP 14:11
PROVIDERS: ATTEND Family Medicine
DX: E11.9 Type 2 diabetes mellitus without complications (principal)
CPT/HCPCS: 36415; 80053; 80061; 83036; 83721; 85025

== ENCOUNTER 2020-12-25 15:00 | Outpatient (CLI) | payer MEDICARE ==
--- NOTE | 2020-12-25 17:59 | CONSULTATION NOTE ---
Palliative Care Follow Up - Referral Referring Provider: Dr. Quang Lozada Time of Visit: [id number] Referral setting: Home Referral Reason: Dysarthria/Depression/Pain of neoplastic origin/Met Breast CA - Information Sources Records reviewed: Previous records reviewed History/Review of Systems obtained from: Patient Exam limitations: Clinical condition (patient with STM deficits/difficulty with communication) - History of Present Illness Update Brief HPI Update: This is a complex 75-year-old woman who was originally diagnosed with history of bilateral breast cancer in 2017, she underwent a bilateral mastectomy with right-sided sentinel lymph node biopsy and left axillary lymph node dissection. She did pursue reconstruction with placement of tissue expanders, Unfortunately related to severe pain had been removed. She was having persistent pain in 06/2019 and resulted above had a CT scan, that showed extensive bone mets and a large destructive lesion on her sternum. She also has known mets to T and L- spine, has been on Ibrance/Faslodex since 08/2019. Patient unfortunately had strokelike symptoms, she refused to access urgent care or ED. She had some improvement, and then worsening again. She continues with some aphasia, now with worsening dysarthria, and cognitive changes. She did have the MRI of her brain, this was done in October. Showed a stable lesion and possibly a meningioma versus metastasis. There was no stroke noted on her MRI, and her carotid ultrasound found less than 50% stenosis of the internal carotid arteries. Patient in the meantime had developed shingles again, she had been on maintenance valacyclovir. This occurred over her left flank. She also has history and now persistent depression, she has been on citalopram 40 mg long- term. She has had functional decline, and has been feeling overwhelmed related to the pandemic and isolation. She also has significant intermittent pain. She has persistent numbness tingling and peripheral neuropathy of her lower extremities and hands, these are currently controlled at some level of 150 mg pregabalin 3 times daily, but she gets escalating sharp shooting pains across the band of her mid thoracic area. She describes these as a building, she has severe pruritus with any opioid. She will take 40 mg oxycodone and 3 mg of dexamethasone, which will knock it down. She ends up doing this maybe 2 times a week. Because of patient's withdrawn. Her time, which she relates both to her depression, isolation, functional decline, and difficulty with her dysarthria and communicating, she has not followed up with her oncology appointment. Patient does express goals wants to continue to live, has goals for another 1 or 2 years, wants to see herself through the pandemic and create some celebrations. Did challenge patient today, if she were to want to meet these goals, she needs to be adherent to her treatment and medication program. Her PCP saw her in mid November, started her on Metformin for an A1c of 8.3, as well as noted elevated triglycerides and is on rosuvastatin. Past Medical History: Fatigue syndrome, hypertension, hyperlipidemia, COPD, history of head injury, type 2 diabetes, GERD, incontinence, worsening chronic vision loss, chronic hearing loss, worsening/exacerbation depression, anxiety, osteoarthritis, chronic back pain, bilateral breast cancer, recurrent metastatic breast cancer to the bone including T and L-spine and sternum, migraines, pancytopenia Social History - Living Situation Living arrangement: At home Living Situation: Alone Support System: Patient lives alone, she is remained quite isolated because of the pandemic. She does have friends to reach out and try and provide support. She is less able to do household tasks, her son has come up from [place] to help her, he is staying with a friend. She and her daughter are somewhat estranged at this point in time. She is quite stressed with multiple financial concerns, they are working forward on trying to get [place] PES. She has a cat named Toya that does keep her centered. Medications/Allergies - Medications Home Medications: Ambulatory Orders Medication Instructions Recorded Confirmed Citalopram [CeleXA] 40 mg PO DAILY tablet 07/14/17 12/26/20 Metoprolol Succinate 100 mg PO DAILY 08/29/19 12/26/20 oxyCODONE [Roxicodone] 30 - 40 mg PO Q4HR PRN 09/26/19 12/26/20 Methylphenidate [Ritalin] 5 - 10 mg PO BID PRN MDD 20 mg 11/20/19 12/26/20 Calcium Carbonate/Vitamin D3 3 tab PO DAILY 03/20/20 12/26/20 [Calcium 600-Vit D3 500 Softgel] dexAMETHasone [Dexamethasone] 2 - 4 mg PO PRN PRN MDD with 03/20/20 12/26/20 oxycodone Palbociclib [Ibrance] 125 mg PO DAILY PRN 03/27/20 12/26/20 Ondansetron [Ondansetron Odt] 4 mg PO Q6HR PRN 06/04/20 12/26/20 Pregabalin 150 mg PO TID 06/04/20 12/26/20 Rosuvastatin Calcium 10 mg PO DAILY 09/04/20 12/26/20 Aripiprazole [Abilify] 2 mg PO DAILY 12/26/20 12/26/20 Valacyclovir HCl [Valtrex] 500 mg PO BID 12/26/20 12/26/20 metFORMIN [Glucophage] 500 mg PO BID 12/26/20 12/26/20 - Allergies Allergies/Adverse Reactions: Allergies Allergy/AdvReac Type Severity Reaction Status Date / Time codeine Allergy Emesis Verified 10/30/20 10:47 oxycodone Allergy Itching Verified 10/30/20 10:47 pseudoephedrine Allergy Hives Verified 10/30/20 10:47 hydromorphone AdvReac Itching Verified 10/30/20 10:47 tramadol AdvReac Itching Verified 10/30/20 10:47 Review of Systems - Constitutional Constitutional: reports: Fatigue (persistent/worsening), Weight loss (reports loss 8 pounds over last couple of weeks) - Eyes Eyes: reports: Blurred vision (worsening visual robb), Vision loss, Corrective lenses - Ears, Nose & Throat Ears, Nose & Throat: reports: Hearing loss - Cardiovascular Cardiovascular: reports: Decr. exercise tolerance. denies: Chest pain - Respiratory Respiratory: reports: SOB with exertion. denies: SOB at rest - Gastrointestinal Gastrointestinal: reports: Early satiety (eats a main meal daily). denies: Constipation - Genitourinary Genitourinary: reports: Frequency, Incontinence. denies: Dysuria - Musculoskeletal Musculoskeletal: reports: Back pain, Muscle aches, Stiffness, Muscle weakness - Integumentary Integumentary: reports: Dryness, Nail changes (left toe nail still problematic) - Neurological Neurological: reports: General weakness, Dizziness, Numbness (left LE), Memory problems (worsening), Abnormal gait (slightly ataxic), Slurred speech (worsened from last visit; dysarthia). denies: Headache - Psychiatric Psychiatric: reports: Depression, Anxiety - Endocrine Endocrine: reports: Diabetes type 2 (aic 8.3; started on metformen 500 mg BID), Intolerance to cold - Hematologic/Lymphatic Hematologic/Lymph: Anemia - All Other Systems All Other Systems: reports: Reviewed and negative Physical Exam - Vital Signs Temperature: 96.7 C Pulse Rate: 70 Respiratory Rate: 18 O2 Saturation: 98 (ra @ rest) Blood Pressure: 142/78 - Physical Exam General Appearance: positive: No acute distress, Alert, Other (dressed and groomed; reports took 2 hours to prepare for appointment today) Eyes Bilateral: positive: Normal inspection ENT: positive: No signs of dehydration Neck: positive: Trachea midline Cardiovascular: positive: Regular rate & rhythm, No murmur Respiratory: positive: No respiratory distress, Breath sounds nml. negative: Wheezes, Rales Abdomen: positive: Non-tender, Soft, Nml bowel sounds Skin: positive: Pallor Extremities: positive: No pedal edema Neurologic/Psychiatric: positive: Oriented x3, Mood/affect nml, Slurred/abnml speech (dysarthia/aphasia), Flat affect, Other (words halting; some word finding; slow to respond; improved from last weeks phone conversation; patient reports improvement in processing but notes deficit) Palliative Care - POLST Patient has POLST: No Pain: Pain worsening, Location (left rib area), Comment (see HPI) Tiredness/Fatigue: Severe (7-10) Drowsiness/Sedation: Moderate (4-6) Nausea: Mild (1-3) Anorexia: Moderate (4-6), Weight loss Dyspnea: Moderate (4-6) (with activity) Depression: Severe (7-10) Anxiety: Mild (1-3) Feelings of wellbeing/Perceived Quality of Life: Fair, Worsening Sleep: Sleeps well Constipation: Yes, Opoid induced, Managed Performance Status: Patient has been sedentary, mostly related to fatigue. She has been quite depressed, spending much time in bed. She recognizes this is some of her isolation and depression, she is able to manage her ADLs. She is less able to manage household tasks, and is getting more support from friends and family - Palliative Care Discussion: Discussed at length consider adding to patient's severity of her depression, d iscouragement with her functional decline, Her distress with increasing difficulty with communication. She is having more trouble managing complicated cognitive tasks. Patient's goals are still to focus on treatment, and both looking at quality of life as well as quantity of life. Patient is hoping for another couple years, we discussed though patient then needs to be more committed and adherent to therapy. She is willing for me to help facilitate [place] [facility] [place] We did discuss both medication/pharmaceutical management and support for her depression. Options are challenged with patient's living alone, difficulty with medication management, and isolation of pandemic Patient's DPOA is Ashley Thornton [phone] as primary, secondary son Sebastián Merino, . Results - Lab Results Lab and Imaging Results: Discussed importance of adhering to lab schedule with her Ibrance, worried about patient's pancytopenia and persistent fatigue may be adding to her depressive state Impression and Recommendations - Palliative Care Impression: This is a 75-year-old woman with metastatic breast cancer to the bones, with expressive aphasia dysarthria concern most likely related to stroke, the patient does present with abnormal finding and MRI. Patient remains quite complex, with allergy and pruritus to opioids, lives alone, and now presents with persistent and debilitating depression. Palliative care continue provide support for pain and symptom management, coordination of care, and anticipatory guidance Recommendations/Counseling Done: 1. Status post CVA. Patient did have MRI in October, did show a 0.9 x 1.0 x 0 .1 cm concern for vestibular schwannoma or meningioma, though given patients breast cancer possible concern for mets. No specific MRI findings for stroke, though patient does present with deficits of aphasia, mild cognitive deficits, as well as dysarthria. Patient is declined further therapy at this point in time, may consider in the future. Has met with PCP, is currently being treated for her diabetes and hyperlipidemia. 2. Metastatic breast cancer. Unfortunately given patient's recent exacerbation of shingles, she is missed her appointment. She is also missed monitoring and has as a result of her depression, dysarthria, has not followed through. She is willing to do go next week, will help facilitate appointments, given communication is difficult. Patient's goals are to continue with treatment, and improve both quality and quantity of life, though patient does present with increasing symptoms of decline. 3. Pain of neoplastic origin. Patient does have severe peripheral neuropathy, currently on pregabalin 150 mg 3 times daily, has titrated off with this with exacerbation of pain. Does report it is doing more than she had thought. She still has severe pruritus with any initiation of opioids, is using currently oxycodone 30 to 40 mg with dexamethasone intermittently about 2 times a week. She also uses marijuana for pain control. Patient's pain patterns are irregul ar, does get escalating spasms and mounting pain across thoracic back and spine area, now reports increased left rib pain and discomfort. Have trialed multiple different approaches of medications, patient satisfied with current regimen for now. 4. Depression, poorly controlled. Patient has long-term been on citalopram 40 mg, discussed transitioning to duloxetine, may help her pain as well as a ddressed depressive symptoms. Patient would require a taper, she is somewhat adverse to anything complicated at this point in time. We settled after much discussion on just adding Abilify 2 mg daily to see if this will help. And will titrate accordingly. Patient has been instructed on increasing activity, with small frequent walks, addition of music, enlisting support and decreasing isolation with friends and family, and adherence to medication regimen. 5. Diabetes type 2. Patient's A1c was 8.3. She is doing some modifications with her meals, she does not eat on a regular basis. Counseling provided regarding low-grade nausea from Metformin, does need to eat on a regular basis and take with meals twice a day, patient verbalized understanding. 6. Advanced care planning. Patient musa at high risk for recurrent stroke symptoms, sequela from a fall, progression of disease and side effects from treatment. Counseling provided regarding safety concerns, need to engage in treatment plan, and to list further support from friends and family. Time Spent: 60 minutes with greater than 50% of this done in counseling regarding depression, pain and symptom management, medication/treatment adherence, and anticipatory guidance.
== END 2020-12-25 15:01 | disposition home or self-care (01) ==
LOC: PC 15:00
PROVIDERS: ATTEND Nurse Practitioner Adult Health
DX: Z51.5 Encounter for palliative care (principal); R47.01 Aphasia; G31.84 Mild cognitive impairment of uncertain or unknown etiology; R47.1 Dysarthria and anarthria; G89.3 Neoplasm related pain (acute) (chronic); G62.9 Polyneuropathy, unspecified; C50.919 Malignant neoplasm of unspecified site of unspecified female breast; C79.51 Secondary malignant neoplasm of bone; F32.9 Major depressive disorder, single episode, unspecified; E11.9 Type 2 diabetes mellitus without complications; Z79.84 Long term (current) use of oral hypoglycemic drugs
CPT/HCPCS: 99350

== ENCOUNTER 2020-12-31 08:00 | Outpatient (CLI) | payer MEDICARE ==
[2020-12-31 19:10] LABS: ALBUMIN 3.8 g/dL (3.2-5.5); ALBUMIN/GLOBULIN RATIO 1.3 (1.0-2.2); ALKALINE PHOSPHATASE 53 IU/L (42-121); ALT ALANINE AMINOTRANSFERASE 13 IU/L (10-60); AST ASPARTATE AMINOTRANSFERASE 17 IU/L (10-42); BILIRUBIN,TOTAL 0.7 mg/dL (0.2-1.0); BUN - BLOOD UREA NITROGEN 8 mg/dL (6-20); CALCIUM 9.3 mg/dL (8.5-10.3); CARBON DIOXIDE - CO2 27 mmol/L (21-32); CHLORIDE 102 mmol/L (101-111); CHOL/HDL RATIO 4.9 (<4.4); CHOLESTEROL 210 mg/dL; CREATININE 0.7 mg/dL (0.4-1.0); GLUCOSE 179 mg/dL (70-100); HDL CHOLESTEROL 43 mg/dL; TOTAL PROTEIN 6.8 g/dL (6.7-8.2)
[2020-12-31 19:46] LABS: LDL CHOLESTEROL,DIRECT 54 mg/dL; LDLD/HDL RATIO 1.3 (<4.4)
[2020-12-31 20:14] LABS: HEMOGLOBIN A1c% 7.8 % (4.27-6.07)
[2021-01-01] MEDS ORDERED: FULVESTRANT 250 MG/5 ML SYRINGE IM SCH (09:00)
== END 2020-12-31 23:59 | disposition home or self-care (01) ==
LOC: LAB.WCP 08:00
PROVIDERS: ATTEND Family Medicine
DX: E11.9 Type 2 diabetes mellitus without complications (principal)
CPT/HCPCS: 36415; 80053; 80061; 83036; 83721

== ENCOUNTER 2021-01-29 12:07 | Outpatient (CLI) | payer MEDICARE ==
[2021-01-29 18:20] LABS: CHOL/HDL RATIO 2.9 (<4.4); CHOLESTEROL 194 mg/dL; HDL CHOLESTEROL 68 mg/dL; LDL CHOLESTEROL,CALCULATED 53 mg/dL; LDL/HDL RATIO 0.8 (<4.4); TRIGLYCERIDES 367 mg/dL; VLDL CHOLESTEROL 73 mg/dL
== END 2021-01-29 12:08 | disposition home or self-care (01) ==
LOC: LAB.N 12:07
PROVIDERS: ATTEND Family Medicine
DX: E78.1 Pure hyperglyceridemia (principal)
CPT/HCPCS: 36415; 80053; 80061; 83721

== ENCOUNTER 2021-03-04 14:30 | Outpatient (CLI) | payer MEDICARE ==
--- NOTE | 2021-03-04 16:40 | CONSULTATION NOTE ---
Palliative Care Follow Up - Referral Referring Provider: Dr. Quang Lozada Time of Visit: [id number] Referral setting: Home Referral Reason: Pain of neoplastic origin/Met Breast CA - Information Sources Records reviewed: Previous records reviewed History/Review of Systems obtained from: Patient Exam limitations: Clinical condition (delayed speech/thought patterns) - History of Present Illness Update Brief HPI Update: This is a complex 75-year-old woman who was recently diagnosed with history of bilateral breast cancer in 2017, she underwent a bilateral mastectomy with right-sided sentinel lymph node biopsy and left axillary lymph node dissection. She did pursue reconstruction with placement of tissue expanders, unfortunately related to severe pain had been removed. She was having persistent pain in 06/[address] scan showed extensive bone mets and a large destructive lesion in her sternum. She also has known mets to the T and L-spine, has been on Ibrance/Faslodex since 08/2019. She has had a series of unfortunate events including episode of strokelike symptoms, she has had an MRI done in 11/10 that did show a stable lesion possibly a meningioma versus metastases. There is been no stroke noted on her MRI, her carotid ultrasound found less than 50% stenosis of internal carotid arteries. She though has continued to have residual aphasia, some mild deficits as far as slowing and balance. But otherwise has done fairly well. She has had intermittent recurrence of shingles, and is currently on maintenance valacyclovir. She has had persistent depression, has been on citalopram 40 mg long-term, did start her on Abilify, she has had improvement of mood, will increase today. She is also been quite isolated related to the pandemic. Today she has continued to develop increasing pain. This is fairly localized in her left upper thoracic area and lumbar spine. She also has worsening pers istence of neuropathy in her lower extremity and hands, despite being on pregabalin 150 mg 3 times a day. She has significant reactions to opioids with pruritus, but with increasing pain, she has been using her "bolus" of dexamethasone 2 mg and 40 mg of oxycodone, consistently at least daily and sometimes up to twice daily. She also uses marijuana at night to help with distraction from the pain. Past Medical History: Diabetes type 2, started on Metformin for A1c of 8.3, elevated triglycerides started on lovastatin, fatigue syndrome, hypertension, COPD, history of head injury, GERD, worsening chronic vision loss, chronic hearing loss, osteoarthritis, migraines, pancytopenia Social History - Living Situation Living arrangement: At home Living Situation: Alone Support System: Patient lives alone, she has been quite isolated because of the pandemic, she has had her shots and has had more socialization which she is very much enjoying. She does have friends to reach out, she is less able to do household tasks. Her son from [place] is calm and helped as well as providing some support. She also has a daughter though she has been less practical support but is available. Her cousin has been slightly made arrangements to move here, she finds him quite supportive and will be here through the week. She continues to be stressed with multiple financial concerns. 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 She has a cat named Toya that keeps her centered. Medications/Allergies - Medications Home Medications: Ambulatory Orders Medication Instructions Recorded Confirmed Citalopram [CeleXA] 40 mg PO DAILY tablet 07/14/17 03/06/21 Metoprolol Succinate 100 mg PO DAILY 08/29/19 03/06/21 oxyCODONE [Roxicodone] 30 - 40 mg PO Q4HR PRN 09/26/19 03/06/21 Methylphenidate [Ritalin] 5 - 10 mg PO BID PRN MDD 20 mg 11/20/19 03/06/21 Calcium Carbonate/Vitamin D3 3 tab PO DAILY 03/20/20 03/06/21 [Calcium 600-Vit D3 500 Softgel] dexAMETHasone [Dexamethasone] 2 - 4 mg PO PRN PRN MDD with 03/20/20 03/06/21 oxycodone Palbociclib [Ibrance] 125 mg PO .1- DAYS 03/27/20 03/06/21 Ondansetron [Ondansetron Odt] 4 mg PO Q6HR PRN 06/04/20 03/06/21 Pregabalin 150 mg PO TID 06/04/20 03/06/21 Rosuvastatin Calcium 10 mg PO DAILY 09/04/20 03/06/21 Aripiprazole [Abilify] 5 mg PO DAILY 12/26/20 03/06/21 Valacyclovir HCl [Valtrex] 500 mg PO BID 12/26/20 03/06/21 metFORMIN [Glucophage] 500 mg PO BID 12/26/20 03/06/21 fentaNYL 12 MCG PATCH [Duragesic 12 mcg TOP .72 HOURS 03/06/21 03/06/21 12mcg patch] - Allergies Allergies/Adverse Reactions: Allergies Allergy/AdvReac Type Severity Reaction Status Date / Time codeine Allergy Emesis Verified 02/26/21 15:49 oxycodone Allergy Itching Verified 02/26/21 15:49 pseudoephedrine Allergy Hives Verified 02/26/21 15:49 hydromorphone AdvReac Itching Verified 02/26/21 15:49 tramadol AdvReac Itching Verified 02/26/21 15:49 Review of Systems - Constitutional Constitutional: reports: Fatigue (persistent), Weight stable - Eyes Eyes: reports: Vision loss, Corrective lenses - Ears, Nose & Throat Ears, Nose & Throat: reports: Dry mouth - Cardiovascular Cardiovascular: reports: Decr. exercise tolerance. denies: Chest pain - Respiratory Respiratory: reports: SOB with exertion. denies: SOB at rest - Gastrointestinal Gastrointestinal: reports: Early satiety (eats a main meal daily). denies: Constipation - Genitourinary Genitourinary: reports: Frequency, Incontinence. denies: Dysuria - Musculoskeletal Musculoskeletal: reports: Back pain, Muscle aches, Stiffness, Muscle weakness - Integumentary Integumentary: reports: Dryness, Nail changes (left toe nail still problematic; Dr. Gary removed), Hair changes (thinning) - Neurological Neurological: reports: General weakness, Numbness (left LE), Memory problems (worsening), Abnormal gait (slightly ataxic), Slurred speech (worsened from last visit; dysarthia). denies: Headache - Psychiatric Psychiatric: reports: Depression (improving), Anxiety - Endocrine Endocrine: reports: Diabetes type 2, Intolerance to cold - All Other Systems All Other Systems: reports: Reviewed and negative Physical Exam - Vital Signs Temperature: 97.3 C Pulse Rate: 72 Respiratory Rate: 18 O2 Saturation: 96 (ra @ rest) Blood Pressure: 118/74 - Physical Exam General Appearance: positive: Alert, Mild distress, Other (slight fullness cushingnoid) Eyes Bilateral: positive: No scleral icterus, Other (periorbital edema) ENT: positive: No signs of dehydration Neck: positive: Trachea midline Cardiovascular: positive: Regular rate & rhythm Respiratory: positive: No respiratory distress, Diminished in bases. negative: Wheezes, Rales, Rhonchi Abdomen: positive: Non-tender, Soft, Obese Skin: positive: Pallor, Dryness, Other (left toe nail removed; still with redness/swelling) Extremities: positive: No pedal edema Neurologic/Psychiatric: positive: Oriented x3, Mood/affect nml, Flat affect, Other (word finding more difficult) Palliative Care - POLST Patient has POLST: No Pain: Pain worsening, Location (lower back; thoracic resgion; LLQ), Comment (used to use oxycodone/dex 2 x week; now at least daily sometimes BID) Tiredness/Fatigue: Moderate (4-6) Drowsiness/Sedation: Moderate (4-6) Nausea: Mild (1-3) Anorexia: Mild (1-3) Dyspnea: None Depression: Mild (1-3) (improved but would like to try increase of abilify) Anxiety: Mild (1-3) Feelings of wellbeing/Perceived Quality of Life: Fair, Improved Sleep: Sleeps well Constipation: No Performance Status: Patient is ambulatory for short distances, she spends most of her time in the house is quite sedentary. She is able to cook, manage her ADLs, does have a bathroom set up with bars and shower stool. She does have some difficulty with balance. Has not had any recent falls - Palliative Care Discussion: Patient is feeling much better with less isolation, she was able to have some friends and her daughter over for the holiday, is feeling somewhat uplifted by this. She is concerned over her worsening pain, and it is significantly impacting her quality of life. With her delayed ability to communicate, she finds it quite difficult to interact with the medical system. She does have her cousin here visiting, who is quite supportive. Patient's goals remain to focus on treatment and looking at quality of life as well as quantity of life. Results - Lab Results Lab results reviewed: Yes Impression and Recommendations - Palliative Care Impression: This is a 75-year-old woman with metastatic breast cancer to the bones, with expressive aphasia, dysarthria, and most likely fallout related to stroke. Though she did not present with any abnormal findings on MRI for stroke. Patient remains quite complex with allergy and pruritus to opioids, isolation, her depression has improved. Palliative care continue to provide support for pain and symptom management, coordination of care, and anticipatory guidance. Recommendations/Counseling Done: 1. Pain of neoplastic origin. Patient has worsening peripheral neuropathy, is currently on pregabalin 150 mg 3 times daily, has tried titrating off of this before with exacerbation of her pain. She still has severe pruritus though more recently with more frequent use of oxycodone has been less intense, she uses oxycodone 40 mg with 2 mg of dexamethasone, with increased in pain she is using this almost daily. She is having more persistent pain in her lower back and left upper thoracic area, her pain patterns have been irregular now more notable with intermittent spasms. We did discuss today trialing fentanyl all, at 12 mcg dose to test allergies. She does have her cousin staying with her through the weekend, would be able to provide support and observation. It is a very small amount compared to her 40 to 80 mg of oxycodone she is using daily, should be able to tolerate it without any sedation. If able to tolerate without pruritus, then can increase every few patch changes until improved pain management. Patient is in agreement to plan. Have written out specific instructions, she will start a.m. 2. Metastatic breast cancer. Patient continues on her Ibrance, she has been compliant. She does have a Mediset which is helping her manage her medications more appropriately. Did reach out to her oncologist Dr. Lozada, discussed imaging in the context of her current pain regimen. He will order imaging, last imaging as best I know was 06/10. 3. Depression. The patient has had improvement by adding Abilify 2 mg to her citalopram 40 mg. She is quite pleased with this. Given her persistent symptoms and improvement with small dose, will increase to 5 mg. Counseled regarding increasing activity and decreasing social isolation, she does have several things planned as far short-term goals, she feels like this has really lifted her spirits and improved her outlook. 4. Constipation. Patient has not had any problems with constipation, counseled though with increasing pain medication may need to initiate MiraLAX. Counseling provided regarding starting half capful daily, and titrate as indicated. 60 minutes with greater than 50% of this time in counseling regarding pain and symptom management related to depression, coordination of care with oncology, and anticipatory guidance
== END 2021-03-04 14:31 | disposition home or self-care (01) ==
LOC: PC 14:30
PROVIDERS: ATTEND Nurse Practitioner Adult Health
DX: Z51.5 Encounter for palliative care (principal); G89.3 Neoplasm related pain (acute) (chronic); C79.51 Secondary malignant neoplasm of bone; L29.9 Pruritus, unspecified; T40.2X5A Adverse effect of other opioids, initial encounter; F32.9 Major depressive disorder, single episode, unspecified; Z85.3 Personal history of malignant neoplasm of breast
CPT/HCPCS: 99350

== ENCOUNTER 2021-04-04 17:12 | Emergency (ER) | payer MEDICARE ==
--- NOTE | 2021-04-04 17:29 | ED Physician Documentation ---
PD HPI LOWER EXT INJURY - Stated complaint Stated Complaint: BILAT LEG SWELLING - Chief complaint Chief Complaint: Ext Problem - History obtained from History obtained from: Patient (75-year-old woman undergoing treatment for breast cancer, metastatic and recurrent presents with 2 weeks of left leg swelling. It is painless. It is not associated with chest pain or trouble breathing. She has no personal history of DVT or PE.) Review of Systems Constitutional: reports: Reviewed and negative Eyes: reports: Reviewed and negative Ears: reports: Reviewed and negative Nose: reports: Reviewed and negative Throat: reports: Reviewed and negative Cardiac: reports: Reviewed and negative Respiratory: reports: Reviewed and negative PD PAST MEDICAL HISTORY - Past Medical History Cardiovascular: Hypertension, High cholesterol Respiratory: COPD Endocrine/Autoimmune: Type 2 diabetes GI: GERD, Ulcers : Incontinence HEENT: Chronic vision loss, Chronic hearing loss, Other Psych: Depression, Anxiety Musculoskeletal: Osteoarthritis, Chronic back pain Derm: None - Past Surgical History Past Surgical History: Yes General: Appendectomy Ortho: 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: 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 and currettage, Mastectomy HEENT: Tonsil/Adenoidectomy - Present Medications Home Medications: Ambulatory Orders Medication Instructions Recorded Confirmed Citalopram [CeleXA] 40 mg PO DAILY tablet 07/14/17 04/04/21 Metoprolol Succinate 100 mg PO DAILY 08/29/19 04/04/21 oxyCODONE [Roxicodone] 30 - 40 mg PO Q4HR PRN 09/26/19 04/04/21 Methylphenidate [Ritalin] 5 - 10 mg PO BID PRN MDD 20 mg 11/20/19 04/04/21 Calcium Carbonate/Vitamin D3 3 tab PO DAILY 03/20/20 04/04/21 [Calcium 600-Vit D3 500 Softgel] dexAMETHasone [Dexamethasone] 2 - 4 mg PO PRN PRN MDD with 03/20/20 04/04/21 oxycodone Palbociclib [Ibrance] 125 mg PO .1- DAYS 03/27/20 04/04/21 Ondansetron [Ondansetron Odt] 4 mg PO Q6HR PRN 06/04/20 04/04/21 Pregabalin 150 mg PO TID 06/04/20 04/04/21 Rosuvastatin Calcium 10 mg PO DAILY 09/04/20 04/04/21 Aripiprazole [Abilify] 5 mg PO DAILY 12/26/20 04/04/21 Valacyclovir HCl [Valtrex] 500 mg PO BID 12/26/20 04/04/21 metFORMIN [Glucophage] 500 mg PO BID 12/26/20 04/04/21 fentaNYL 12 MCG PATCH [Duragesic 12 mcg TOP .72 HOURS 03/06/21 04/04/21 12mcg patch] Furosemide [Lasix] 40 mg PO DAILY 3 Days #3 tablet 03/26/21 04/04/21 - Allergies Allergies/Adverse Reactions: Allergies Allergy/AdvReac Type Severity Reaction Status Date / Time codeine Allergy Emesis Verified 04/04/21 17:16 oxycodone Allergy Itching Verified 04/04/21 17:16 pseudoephedrine Allergy Hives Verified 04/04/21 17:16 hydromorphone AdvReac Itching Verified 04/04/21 17:16 tramadol AdvReac Itching Verified 04/04/21 17:16 - Social History Does the pt smoke?: No Smoking Status: Never smoker Does the pt drink ETOH?: Yes Does the pt have substance abuse?: No - POLST Patient has POLST: No PD ED PE NORMAL - Vitals Vital signs reviewed: Yes - General General: Alert and oriented X 3, Other - Extremities Extremities: Other (Left leg is swollen up to just above the knee. Perfusion is normal.) - Neuro Neuro: Alert and oriented X 3, Other (Slow speech to due to aphasia which is not new for her.) Results - Vitals Vitals: Vital Signs - 24 hr 04/04/21 04/04/21 17:16 19:20 Temperature 36.5 C 36.7 C Heart Rate 76 72 Respiratory 18 16 Rate Blood Pressure 145/72 H 149/71 H O2 Saturation 100 100 Oxygen O2 Source Room air PD MEDICAL DECISION MAKING - ED course ED course: 75-year-old woman undergoing treatment for cancer presents with left leg swelli ng. Ultrasound to evaluate for DVT shows no DVT, but she does have a knee effusion as reported by the tube fitter which may be causative of the reactive edema. Departure - Departure Disposition: 01 Home, Self Care Clinical Impression: Effusion of knee joint, left, Pedal edema Condition: Good Record reviewed to determine appropriate education?: Yes Instructions: ED Effusion Knee Comments: As discussed, there is no evidence of blood clot/DVT. You do have some fluid on your knee joint which I think is causing the swelling in your calf by impeding return blood flow. Follow-up with your primary care physician for discussion of this and you can buy [id number] compression stockings to help in the meantime. Return for any new or worsening symptoms. Discharge Date/Time: 04/04/21 19:33
[2021-04-04 19:32] VITALS: BP 149/71
--- NOTE | 2021-04-04 19:43 | Ultrasound Report ---
PROCEDURE: Duplex Ext Veins Left INDICATIONS: lle swelling TECHNIQUE: Real-time imaging, as well as color and pulse Doppler interrogation, were performed of the lower extr emity deep veins from the inguinal ligament to the popliteal fossa. COMPARISON: None. FINDINGS: The deep veins are normally compressible, and free of intraluminal thrombus. There was sub optimal visualization of the calf veins. Color and pulse Doppler demonstrate normal phasic intralumi nal flow. There is normal augmentation response to distal compression maneuver. A joint effusion is identified. IMPRESSION: No DVT in the left lower extremity identified. Reviewed by: Jose Maria Braxton on 04/04/2021 7:42 PM PDT Approved by: Jose Maria Braxton on 04/04/2021 7:42 PM PDT Station ID: [id number]
== END 2021-04-04 19:33 | disposition home or self-care (01) ==
LOC: ED 17:12
DX: M25.462 Effusion, left knee (principal); R60.0 Localized edema; R47.01 Aphasia; C79.81 Secondary malignant neoplasm of breast; Z85.3 Personal history of malignant neoplasm of breast; I10 Essential (primary) hypertension; E11.9 Type 2 diabetes mellitus without complications; Z79.84 Long term (current) use of oral hypoglycemic drugs
CPT/HCPCS: 99283; 99284

== ENCOUNTER 2021-05-06 15:30 | Outpatient (CLI) | payer MEDICARE ==
--- NOTE | 2021-05-06 18:05 | CONSULTATION NOTE ---
Palliative Care Follow Up - Referral Referring Provider: Dr. Quang Lozada Time of Visit: [id number] Referral setting: Home Referral Reason: Pain of neoplastic origin/Met Breast CA to bone/MCI - Information Sources Records reviewed: Previous records reviewed History/Review of Systems obtained from: Patient Exam limitations: Clinical condition (patient with aphasia/ STM deficits) - History of Present Illness Update Brief HPI Update: This is a complex 75-year-old woman who has recurrent metastatic breast cancer to the bone including T and L-spine, currently on Ibrance and Faslodex since 08/2019. She was having escalating pain, did receive MRI to her thoracic and lumbar area, which showed no worsening of disease. I had talked with radiation oncology Dr. Urena, who reviewed the scans and did not see any areas that could be radiated that might improved her pain. This was something of a disappointment, as we are having difficulty finding a good fix for her medical management of her pain. Patient was started on fentanyl, did tolerate this fairly well in February, had been titrated up quite slowly, got to 24, and patient stopped. After exploring this further today, it does appear her cousin has some significant prejudiced regarding this, and had shared this with Gayatri thus causing her to abandon our plan. Patient did not have any pruritus with this, which was encouraging. She has by default come back to her once a day dosing with 2 mg of dexamethasone and 50 mg of oxycodone usually mid to late day, as the pain continues to build, most of her pain is in her left shoulder thoracic area. She does report this does help, had been originally only doing this once or twice a week, now is doing this almost daily. Patient does show symptoms now that she has been on it for quite a while, of cushingoid syndrome, with some fullness in her face and neck, and lower extremity edema, as well as worsening blood sugars. Patient has been on oxycodone daily, will trial tapering back the dexamethasone, and see if this will help. Patient does admit to intermittent difficulty with confusion of day, time, tracking things and activities. She does have some word finding issues problematic as well as aphasia, does have some MCI with forgetfulness, difficulty executing tasks that time, and halting speech. She also has fluctuating mood, with persistent depression, she has been on citalopram 40 mg long-term, did do better on the 5 mg Abilify, but has been quite isolated with the pandemic and less support overall. Past Medical History: Type 2 diabetes, elevated triglycerides, fatigue syndrome, hypertension, COPD, history of head injury, GERD, worsening chronic vision loss, chronic hearing loss, osteoarthritis, migraines, pancytopenia Social History - Living Situation Living arrangement: At home Living Situation: Alone Medications/Allergies - Medications Home Medications: Ambulatory Orders Medication Instructions Recorded Confirmed Citalopram [CeleXA] 40 mg PO DAILY tablet 07/14/17 05/06/21 Metoprolol Succinate 100 mg PO DAILY 08/29/19 05/06/21 oxyCODONE [Roxicodone] 40 - 50 mg PO DAILY PRN 09/26/19 05/06/21 Methylphenidate [Ritalin] 5 - 10 mg PO BID PRN MDD 20 mg 11/20/19 05/06/21 Calcium Carbonate/Vitamin D3 3 tab PO DAILY 03/20/20 05/06/21 [Calcium 600-Vit D3 500 Softgel] dexAMETHasone [Dexamethasone] 1 mg PO PRN PRN MDD with 03/20/20 05/06/21 oxycodone/tapering off Palbociclib [Ibrance] 125 mg PO .1- DAYS 03/27/20 05/06/21 Ondansetron [Ondansetron Odt] 4 mg PO Q6HR PRN 06/04/20 05/06/21 Pregabalin 150 mg PO TID 06/04/20 05/06/21 Rosuvastatin Calcium 10 mg PO DAILY 09/04/20 05/06/21 Aripiprazole [Abilify] 5 mg PO DAILY 12/26/20 05/06/21 metFORMIN [Glucophage] 500 mg PO BID 12/26/20 05/06/21 Cholecalciferol [Vitamin D3] 5,000 unit PO DAILY 05/06/21 05/06/21 - Allergies Allergies/Adverse Reactions: Allergies Allergy/AdvReac Type Severity Reaction Status Date / Time codeine Allergy Emesis Verified 04/04/21 17:16 oxycodone Allergy Itching Verified 04/04/21 17:16 pseudoephedrine Allergy Hives Verified 04/04/21 17:16 hydromorphone AdvReac Itching Verified 04/04/21 17:16 tramadol AdvReac Itching Verified 04/04/21 17:16 Review of Systems - Constitutional Constitutional: reports: Fatigue (persistent), Weight stable - Eyes Eyes: reports: Vision loss, Corrective lenses - Ears, Nose & Throat Ears, Nose & Throat: reports: Dry mouth - Cardiovascular Cardiovascular: reports: Decr. exercise tolerance. denies: Chest pain - Respiratory Respiratory: reports: SOB with exertion. denies: SOB at rest - Gastrointestinal Gastrointestinal: reports: Early satiety (eats a main meal daily). denies: Constipation - Genitourinary Genitourinary: reports: Frequency, Incontinence. denies: Dysuria - Musculoskeletal Musculoskeletal: reports: Back pain, Muscle aches, Stiffness, Muscle weakness - Integumentary Integumentary: reports: Dryness, Nail changes (left toe nail still problematic; Dr. Gary removed), Hair changes (thinning) - Neurological Neurological: reports: General weakness, Numbness (left LE), Memory problems (worsening), Abnormal gait (slightly ataxic), Slurred speech (worsened from last visit; dysarthia). denies: Headache - Psychiatric Psychiatric: reports: Depression (improving), Anxiety - Endocrine Endocrine: reports: Diabetes type 2, Intolerance to cold - Hematologic/Lymphatic Hematologic/Lymph: reports: Anemia - All Other Systems All Other Systems: reports: Reviewed and negative Physical Exam - Vital Signs Temperature: 97.3 C Pulse Rate: 63 Respiratory Rate: 18 O2 Saturation: 98 (ra @ rest) Blood Pressure: 108/64 - Physical Exam General Appearance: positive: No acute distress, Alert, Lethargic, Other (slight fullness cushingnoid) Eyes Bilateral: positive: No scleral icterus, Other (periorbital edema) ENT: positive: No signs of dehydration Neck: positive: Trachea midline Cardiovascular: positive: Regular rate & rhythm Respiratory: positive: No respiratory distress, Diminished in bases. negative: Wheezes, Rales, Rhonchi Abdomen: positive: Non-tender, Soft, Obese Skin: positive: Pallor, Dryness, Other (left toe nail removed; still with redness/swelling) Extremities: positive: No pedal edema Neurologic/Psychiatric: positive: Oriented x3, Mood/affect nml, Flat affect, Other (word finding more difficult) Palliative Care - POLST Patient has POLST: No Pain: Pain worsening, Location (left shoulder mainly) Performance Status: Patient does have more persistent fatigue, is sleeping more, and more sedentary. She is mostly isolated in the house, she is able to manage her ADLs, but is overwhelmed at times with her housework. We discussed getting her more help, she could not recall if she had applied for [place] or where she was in the pr ocess. We also discussed her building up more strength, the need to continue to be functional particular she wanted to stay independent, discussed possible physical therapy referral. - Palliative Care Discussion: Patient continues to struggle particularly with her aphasia and MCI, she is quite isolated though does have friends but has fluctuating moods. We did discuss setting short-term goals, she does have a constitution party she is looking forward to that she is doing for "her adopted daughter" and has been doing some planning around this. She does understand the seriousness of her illness, but she at this point only has metastatic disease to the bone, and we discussed at length ways to improve her quality of life in the context of maintaining her independ ence for as long as possible. Results - Lab Results Lab results reviewed: Yes Impression and Recommendations - Palliative Care Impression: This is a 75-year-old woman with metastatic breast cancer to the bones, expressive aphasia, dysarthria, most likely sequela related to strokelike symptoms. Patient remains quite complex with allergy and pruritus to opioids, her isolation, and fluctuating depression. Palliative care continue to provide support for pain and symptom management, coordination of care, and anticipatory guidance Recommendations/Counseling Done: 1. Pain of neoplastic origin. Patient does have worsening peripheral mick ropathy, is currently on pregabalin 150 mg 3 times daily, has tried titrating off this before with exacerbation of her pain. She is continuing this. She reports she has not had as much pruritus or noted it lately, she has been taking her oxycodone 50 mg with 2 mg of dexamethasone daily, she waits till the pain builds up and then uses a one-time dose to knock it down. We had trialed the fentanyl, originally she had reported it was improving her pain management, she does not recall the whole series of events around this, but did stop it. It still remains an option in the future. She is having sequela from the prolonged use of the dexamethasone with cushingoid appearance, lower extremity edema, as well as elevated blood sugars. She is willing to trial titrating off of this, though I suspect it has been helping with her bone pain.She will decrease to 1 mg with each dose for 2 weeks, then will have her switch to half tab for 2 weeks, and then half tab every other day for 2 weeks and discontinue. This was written out for her. Patient will notify me if increase in pain, pruritus, or if she wants to restart fentanyl 2. Metastatic breast cancer. Patient continues on her Ibrance, has been compliant, she does have a Mediset now which is helping her manage her medications more appropriately. She did have some recent imaging that did not show any worsening of disease, but worsening of her osteoarthritis. Did reach out to radiation oncology, they do not have anything at this point in time to offer her. 3. Depression. She had done better with addition of abilify, as well as receiving the COVID shot, leaving her feeling more confident to interact with the outside world. She continues to struggle with fluctuating mood, counseling provided regarding setting short-term goals, as well as suspected titrating off of steroids may help. 4. Generalized weakness. Patient is quite sedentary, does have only so much energy and difficulty with household tasks, will put a referral into senior services, to assist her with exploration if she would qualify for some assistance. Did discuss with her also my recommendation to consider physical therapy, she does have lower extremity weakness, worsening balance problems and difficulty with walking. Call to her PCP Dr. Gary to update on pain as well as recommendations as we will need a referral from her. 5. Advanced care planning. Patient continues to struggle with her current quality of life, is wanting to continue treatment and extend her quantity as long as possible, continues to be challenging to manage patient's underlying pain which is fairly significant. 60 minutes with greater than 50% of this done in counseling regarding pain and symptom management, titration of dexamethasone taper, written instructions provided, coordination of care with PCP and oncology team
== END 2021-05-06 15:31 | disposition home or self-care (01) ==
LOC: PC 15:30
PROVIDERS: ATTEND Nurse Practitioner Adult Health
DX: Z51.5 Encounter for palliative care (principal); G89.3 Neoplasm related pain (acute) (chronic); C50.919 Malignant neoplasm of unspecified site of unspecified female breast; C79.51 Secondary malignant neoplasm of bone; F32.9 Major depressive disorder, single episode, unspecified; R53.1 Weakness; E11.9 Type 2 diabetes mellitus without complications; Z79.84 Long term (current) use of oral hypoglycemic drugs
CPT/HCPCS: 99350

== ENCOUNTER 2021-06-14 16:35 | Outpatient (CLI) | payer MEDICARE | END 2021-06-14 16:36 | disposition short-term general hospital (02) | LOC: EMS 16:35 | DX: R53.1 Weakness (principal) | CPT/HCPCS: A0425; A0429 ==

== ENCOUNTER 2021-06-24 14:00 | Outpatient (CLI) | payer MEDICARE ==
--- NOTE | 2021-06-24 16:39 | CONSULTATION NOTE ---
Palliative Care Follow Up - Referral Referring Provider: Dr. Quang Lozada Time of Visit: [id number] Referral setting: Home Referral Reason: stroke/apraxia of speech/Met breast CA - Information Sources Records reviewed: Previous records reviewed History/Review of Systems obtained from: Patient Exam limitations: Clinical condition (patient with STM deficits; increased cognitive deficits) - History of Present Illness Update Brief HPI Update: This is a 75-year-old woman who has recurrent metastatic breast cancer to the bone, who has a complex history in the context of having recurrent CVAs. Unfortunately on 06/15 she had a fall, she was 6 hours on the floor, was finally able to summon help and was taken to the ED. She was seen at [facility]. She did have a head CT, with no acute intercranial hemorrhage but they did see a focal increased density in the region of the left MCA. Her deficits were right-sided, she still continues with some right-sided weakness, more extensive speech apraxia, increased short-term memory issues, and mild neurocognitive deficits. She does live alone, she is at high risk for recurrent falls, as she already has severe peripheral neuropathy and poor balance, she is using her walker around the home, she is not bathing when nobody is there. We did do a SLUMS she scored 21 which is mild neuro disorder. She had difficulty with the clock as well as numerical problem solving. She does report her pain is better, she has been using the oxycodone which she uses 30 to 40 mg at a time, about every 2 to 3 days. She was able to wean off the dexamethasone and has only had slight pruritus. She was unable to make it to her oncology appointment, she has rescheduled for Wednesday. She did restart her Ibrance on 06/28. She does have some labs from her stay at [place], she was somewhat pancytopenic with WBC 3.0, hemoglobin 10.3, platelets 155. She did receive MRI of the brain, unfortunately was limited. As well as a angiogram that did not show any large vessel occlusion, there was greater than 50% stenosis in the left ICA and 50% stenosis in the right. She was started on amlodipine for elevated high blood pressure, Plavix for 20 days, as well as 81 mg aspirin. Concerned about medication adherence, did review her meds and wrote out new list, her cousin's will be filling her Mediset's. She does have friends checking on her, she does feel like she is managing at this point in time. Past Medical History: Type 2 diabetes, elevated triglycerides, hypertension, COPD, history of head injury, GERD, worsening chronic vision loss, chronic hearing loss, osteoarthritis, migraines, pancytopenia, metastatic breast cancer with mets to the bone including T and L-spine, currently on Ibrance and Faslodex. History of bilateral breast cancer stage II status post bilateral lumpectomy. Social History - Living Situation Living arrangement: At home Living Situation: Alone Support System: Patient has a son, who is unable to come up and help he is awaiting surgery on his back. She has a daughter who they have a difficult relationship with, but is checking on her. She has a cousin who is helping with errands etc. and IADL s, and his is coming weekly to do meds. She does have a community of friends, they are checking on her frequently, her friend Aide is getting her a Lifeline. Medications/Allergies - Medications Home Medications: Ambulatory Orders Medication Instructions Recorded Confirmed Citalopram [CeleXA] 40 mg PO DAILY tablet 07/14/17 06/24/21 Metoprolol Succinate 100 mg PO DAILY 08/29/19 06/24/21 oxyCODONE [Roxicodone] 30 - 40 mg PO DAILY PRN 09/26/19 06/24/21 Methylphenidate [Ritalin] 5 - 10 mg PO BID PRN MDD 20 mg 11/20/19 06/24/21 Calcium Carbonate/Vitamin D3 3 tab PO DAILY 03/20/20 06/24/21 [Calcium 600-Vit D3 500 Softgel] Palbociclib [Ibrance] 125 mg PO .- DAYS 03/27/20 06/24/21 Pregabalin 150 mg PO TID 06/04/20 06/24/21 Aripiprazole [Abilify] 5 mg PO DAILY 12/26/20 06/24/21 metFORMIN [Glucophage] 500 mg PO BID 12/26/20 06/24/21 Aspirin [[place] Aspirin] 81 mg PO DAILY 06/24/21 06/24/21 Atorvastatin Calcium [Lipitor] 80 mg PO QPM 06/24/21 06/24/21 Clopidogrel [Plavix] 75 mg PO DAILY MDD 20 days 06/24/21 06/24/21 - Allergies Allergies/Adverse Reactions: Allergies Allergy/AdvReac Type Severity Reaction Status Date / Time codeine Allergy Emesis Verified 05/21/21 13:51 oxycodone Allergy Itching Verified 05/21/21 13:51 pseudoephedrine Allergy Hives Verified 05/21/21 13:51 hydromorphone AdvReac Itching Verified 05/21/21 13:51 tramadol AdvReac Itching Verified 05/21/21 13:51 Review of Systems - Constitutional Constitutional: reports: Fatigue (persistent), Weight stable - Eyes Eyes: reports: Vision loss, Corrective lenses - Ears, Nose & Throat Ears, Nose & Throat: reports: Hearing loss, Dry mouth - Cardiovascular Cardiovascular: reports: Edema (mild), Lightheadedness, Decr. exercise tolerance. denies: Chest pain - Respiratory Respiratory: reports: SOB with exertion. denies: SOB at rest - Gastrointestinal Gastrointestinal: reports: Early satiety (eats a main meal daily). denies: Constipation - Genitourinary Genitourinary: reports: Frequency, Incontinence. denies: Dysuria - Musculoskeletal Musculoskeletal: reports: Back pain, Muscle aches, Stiffness, Muscle weakness - Integumentary Integumentary: reports: Dryness, Nail changes (left toe nail still problematic; Dr. Gary removed), Hair changes (thinning) - Neurological Neurological: reports: General weakness, Numbness (left LE), Memory problems (worsening SLUMS score 21), Abnormal gait (slightly ataxic), Slurred speech (worsened from last visit; dysarthia). denies: Headache - Psychiatric Psychiatric: reports: Depression (controlled) - Endocrine Endocrine: reports: Diabetes type 2, Intolerance to cold - Hematologic/Lymphatic Hematologic/Lymph: reports: Anemia - All Other Systems All Other Systems: reports: Reviewed and negative Physical Exam - Vital Signs Temperature: 37.0 C Pulse Rate: 66 Respiratory Rate: 18 O2 Saturation: 99 (ra @ rest) Blood Pressure: 126/68 - Physical Exam General Appearance: positive: No acute distress, Alert, Other (slight fullness cushingnoid improved off dex) Eyes Bilateral: positive: No scleral icterus, Other (periorbital edema) ENT: positive: No signs of dehydration Neck: positive: Trachea midline Cardiovascular: positive: Regular rate & rhythm Respiratory: positive: No respiratory distress, Diminished in bases. negative: Wheezes, Rales, Rhonchi Abdomen: positive: Non-tender, Soft, Obese Skin: positive: Pallor, Dryness Extremities: positive: Pedal edema (ankle mild) Neurologic/Psychiatric: positive: Oriented x3, Mood/affect nml, Flat affect, Other (word finding more difficult; significant since last visit) Palliative Care - POLST Patient has POLST: No POLST Status: Full Code Pain: Pain improved, Location (right clavicle from fall and central line; left shoulder and back area), Severity (2/10 at visit) Tiredness/Fatigue: Moderate (4-6) Drowsiness/Sedation: Mild (1-3) Nausea: None Anorexia: Mild (1-3) Dyspnea: Mild (1-3) (with activity) Depression: Mild (1-3) (improved; very much enjoyed democrat) Anxiety: Moderate (4-6) (given recent events; living alone) Feelings of wellbeing/Perceived Quality of Life: Fair, Acceptable, Worsening Sleep: Sleeps well Constipation: No Performance Status: Patient with some residual right-sided weakness, is using walker for longer distance and home. Is waiting for someone to be able to supervise while she is bathing. She does need more assistance both with IADLs, is managing her ADLs currently. She does fatigue quite easily. - Palliative Care Discussion: Patient somewhat traumatized by her most recent event, she was 6 hours on the floor. She is anxious about recurrent stroke, and living alone. She feels like her depression is currently actually fairly well controlled, and felt like having her democrat and planning for it, gave her a reason to live and helped her depression and anxiety. She is starting to think about planning her own birthday democrat for Labor Day, feels like this is something that will help her in the long run. We discussed her current quality of life, at this point she still fee ls its good, but unfortunately if she were to have another stroke or become more dependent, most likely does not have the resources to be able to stay in her own home alone. Her thing that brings her most joel is her cat Toya. Results - Lab Results Lab results reviewed: Yes Lab and Imaging Results: REview of labs/imaging and [facility] notes Impression and Recommendations - Palliative Care Impression: This is a 75-year-old woman with metastatic breast cancer to the bones, worsening expressive aphasia and apraxia, dysarthria, and now with new stroke resulting in hospitalization. Patient still has some residual right-sided we akness. Patient remains quite complex with allergy and pruritus to opioids, isolation, and fluctuating depression. Palliative care continue to provide support for pain and symptom management, coordination of care, and anticipatory guidance Recommendations/Counseling Done: 1. Pain of neoplastic origin. Patient has multiple pain generators, currently on Pregabalin 150 mg 3 times daily, for chemotherapy-induced peripheral neuropathy, she has done better with pruritus and has been able to titrate off the dexamethasone. She is using the oxycodone 30 to 40 mg every 2 to 3 days for escalating pain mostly in her left shoulder and back. Reports no further worsening or new pains noted. Patient has been on fentanyl before, with some improvement in her pain but is quite fearful of returning to this, will continue to monitor. 2. CVA. Patient did present 06/15 with acute symptoms of right-sided weakness, worsening apraxia/aphasia, and still with significant neuro deficits. She fortunately already had physical therapy initiated for 07/08 and is working with her friend Jane for speech therapy. She does have people checking on her, and is to get a lifeline. Patient currently on Plavix and aspirin, did rewrite her medication list for her friend who is feeling her meds. 3. Depression. Patient has done better with addition of Abilify, as well as receiving Covid shot feeling more confident to interact with outside world. She does feel currently she is doing fairly well, she does use intermittently the Ritalin to help with her overall fatigue and mood elevation. 4. Medication adherence. There had been some confusion as patient does have poor short-term memory issues, regarding medications. Reviewed meds and home, current discharge list, as well as [facility] discharge information. We wrote medication list for friend to fill Mediset's from. Patient reports she is managing to take on a regular basis. She does have a Mediset. 5. Generalized weakness. Patient remains quite sedentary, she did get a referral to Senior services unfortunately did not qualify for assistance. She is awaiting initiating physical therapy, and is using her walker as well as safety for bathing. 6. Advanced care planning. Patient continues to struggle now with another acute event, she is wanting continued treatment extend her quantity of life as long as possible, continues to be challenging to manage patient given the complexity of her situation as well as her short-term memory deficits. 60 minutes with greater than 50% of this done in counseling regarding medication adherence, review of current status in the context of recent stroke, coordination of care with oncology.
== END 2021-06-24 14:01 | disposition home or self-care (01) ==
LOC: PC 14:00
PROVIDERS: ATTEND Nurse Practitioner Adult Health
DX: Z51.5 Encounter for palliative care (principal); G89.3 Neoplasm related pain (acute) (chronic); C50.919 Malignant neoplasm of unspecified site of unspecified female breast; C79.51 Secondary malignant neoplasm of bone; M25.512 Pain in left shoulder; M54.9 Dorsalgia, unspecified; G62.0 Drug-induced polyneuropathy; T45.1X5A Adverse effect of antineoplastic and immunosuppressive drugs, initial encounter; Z91.81 History of falling; R26.81 Unsteadiness on feet; I69.351 Hemiplegia and hemiparesis following cerebral infarction affecting right dominant side; I69.390 Apraxia following cerebral infarction; I69.319 Unspecified symptoms and signs involving cognitive functions following cerebral infarction; I69.311 Memory deficit following cerebral infarction; I69.322 Dysarthria following cerebral infarction; I69.320 Aphasia following cerebral infarction; F32.9 Major depressive disorder, single episode, unspecified; R53.1 Weakness; F41.9 Anxiety disorder, unspecified; I10 Essential (primary) hypertension; E11.9 Type 2 diabetes mellitus without complications; Z79.891 Long term (current) use of opiate analgesic; Z79.84 Long term (current) use of oral hypoglycemic drugs; Z79.899 Other long term (current) drug therapy
CPT/HCPCS: 99350

== ENCOUNTER 2021-07-01 15:39 | Outpatient (CLI) | payer MEDICARE ==
[2021-07-01 18:13] LABS: BASOPHILS # (AUTO) 0.1 10^3/uL (0.0-0.1); BASOPHILS % (AUTO) 1.5 %; EOSINOPHILS % (AUTO) 0.6 %; HCT - HEMATOCRIT 38.7 % (37.0-47.0); HGB - HEMOGLOBIN 12.6 g/dL (12.0-16.0); LYMPHOCYTES % (AUTO) 21.5 %; MEAN CORPUSCULAR HEMOGLOBIN 32.5 pg (27.0-31.0); MEAN CORPUSCULAR HGB CONC 32.6 g/dL (32.0-36.0); MEAN CORPUSCULAR VOLUME 99.7 fL (81.0-99.0); MONOCYTES # (AUTO) 0.3 10^3/uL (0.0-1.0); MONOCYTES % (AUTO) 5.7 %; NEUTROPHILS # (AUTO) 3.3 10^3/uL (1.5-6.6); NEUTROPHILS % (AUTO) 70.1 %; PLT - PLATELET COUNT 293 10^3/uL (130-450); RED BLOOD COUNT 3.88 10^6/uL (4.20-5.40); RED CELL DISTRIBUTION WIDTH 12.5 % (12.0-15.0); WHITE BLOOD COUNT 4.7 x10^3/uL (4.8-10.8)
[2021-07-01 18:41] LABS: ALBUMIN 3.9 g/dL (3.2-5.5); ALBUMIN/GLOBULIN RATIO 1.5 (1.0-2.2); ALKALINE PHOSPHATASE 51 IU/L (42-121); ALT ALANINE AMINOTRANSFERASE 13 IU/L (10-60); AST ASPARTATE AMINOTRANSFERASE 20 IU/L (10-42); BILIRUBIN,TOTAL 0.6 mg/dL (0.2-1.0); BUN - BLOOD UREA NITROGEN 17 mg/dL (6-20); CALCIUM 9.7 mg/dL (8.5-10.3); CARBON DIOXIDE - CO2 29 mmol/L (21-32); CHLORIDE 104 mmol/L (101-111); CHOL/HDL RATIO 2.5 (<4.4); CHOLESTEROL 150 mg/dL; CREATININE 0.9 mg/dL (0.4-1.0); GFR - MDRD 61 (>89); GLUCOSE 138 mg/dL (70-100); HDL CHOLESTEROL 60 mg/dL; LDL CHOLESTEROL,CALCULATED 54 mg/dL; LDL/HDL RATIO 0.9 (<4.4); POTASSIUM 3.9 mmol/L (3.5-5.0); SODIUM 142 mmol/L (135-145); TOTAL PROTEIN 6.5 g/dL (6.7-8.2); TRIGLYCERIDES 179 mg/dL; VLDL CHOLESTEROL 36 mg/dL
[2021-07-01 20:58] LABS: ESTIMATED AVERAGE GLUCOSE 143 mg/dL (70-100); HEMOGLOBIN A1c% 6.6 % (4.27-6.07)
== END 2021-07-01 23:59 | disposition home or self-care (01) ==
LOC: LAB.WCP 15:39
PROVIDERS: ATTEND Family Medicine
DX: E11.9 Type 2 diabetes mellitus without complications (principal)
CPT/HCPCS: 36415; 80053; 80061; 83036; 83721; 85025

== ENCOUNTER 2021-08-13 21:51 | Outpatient (CLI) | payer MEDICARE | END 2021-08-13 21:52 | disposition EMS.NT | LOC: EMS 21:51 | DX: Z03.89 Encounter for observation for other suspected diseases and conditions ruled out (principal) ==

== ENCOUNTER 2021-09-11 15:00 | Outpatient (CLI) | payer MEDICARE ==
--- NOTE | 2021-09-11 16:52 | CONSULTATION NOTE ---
Palliative Care Follow Up - Referral Referring Provider: Dr. Quang Lozada Time of Visit: [phone] Ref[place] setting: [facility] [place] Reason: Pain of neoplastic origin/Apraxia of speech/Met Breast Ca/Stroke residual - Information Sources Records reviewed: Previous records reviewed History/Review of Systems obtained from: Patient Exam limitations: No limitations - History of Present Illness Update Brief HPI Update: This is a 75-year-old woman has recurrent metastatic breast cancer to the bone, has a complex history in the context of having recurrent CVAs. Unfortunately on 06/15/2020 when she had a fall and was 6 hours on the floor, was able finally to summon help him taking [address] [place] [address] ED[address] She had a CT of the scan though no acute intracranial hemorrhage they did see a focal increased density in the region of the left MCA. Her deficits remain persistent right sided weakness, continues with extensive speech apraxia, increased short-term memory issues, and mild neuro cognitive deficits. Patient at baseline is currently getting Ibrance and Faslodex since 09/19, she does experience bony metastatic cancer pain, and have been challenged to manage it in the context of her opioid intolerance with pruritus. She is on pregabalin which manages most of her baseline pain, with increased standing or fatigue, her pain increases particularly in the back thoracic lumbar area and she takes oxycodone 30 mg x 1, she is also using marijuana for pain control. She has been started on amlodipine 9 for high blood pressure, she is discontinued her Plavix it was just for 20 days, continue to be concerned about medication adherence. She is setting it up now, her cousin's had been setting it up. She has had continued functional decline, had trialed outpatient physical therapy, has found it to fatiguing and unable to tolerate, is interested in home PT/OT and patient needs to be seen by speech therapy. She has been waiting for for a referral but has not heard. We will go ahead and transition to home health team, this will help with her fatigue, as well as concern for her home safety to better be able to make meaningful suggestions. Past Medical History: Type 2 diabetes, hypercholesteremia, hypertension, COPD, history of head injury, GERD, worsening chronic vision loss, chronic hearing loss, osteoarthritis, migraines, pancytopenia, metastatic breast cancer with mets to the bone including T and L-spine, history of bilateral breast cancer stage II status post bilateral lumpectomy, history of reconstruction with removal of prostheses, known stenosis of the ICA at 50% right and left. Social History - Living Situation Living arrangement: At home Living Situation: Alone Support System: Patient has a son who is unable to come up and help, recently started a new job. She also has a daughter who lives nearby, they do have a difficult relationship but she has been helping make arrangements for appointments and make phone calls for her as it is difficult for her to talk on the phone. She does have a cousin who intermittently is helping with errands and IADLs, she does have a community of friends unfortunately been gone these last few weeks with her check on her frequently as well. Medications/Allergies - Medications Home Medications: Ambulatory Orders Medication Instructions Recorded Confirmed Citalopram [CeleXA] 40 mg PO DAILY tablet 07/14/17 09/12/21 Metoprolol Succinate 100 mg PO DAILY 08/29/19 09/12/21 oxyCODONE [Roxicodone] 30 - 40 mg PO DAILY PRN 09/26/19 09/12/21 Methylphenidate [Ritalin] 5 - 10 mg PO BID PRN MDD 20 mg 11/20/19 09/12/21 Calcium Carbonate/Vitamin D3 3 tab PO DAILY 03/20/20 09/12/21 [Calcium 600-Vit D3 500 Softgel] Palbociclib [Ibrance] 125 mg PO .1- DAYS 03/27/20 09/12/21 Pregabalin 150 mg PO TID 06/04/20 09/12/21 Aripiprazole [Abilify] 5 mg PO DAILY 12/26/20 09/12/21 metFORMIN [Glucophage] 500 mg PO BID 12/26/20 09/12/21 Aspirin [[place] Aspirin] 81 mg PO DAILY 06/24/21 09/12/21 Atorvastatin Calcium [Lipitor] 80 mg PO QPM 06/24/21 09/12/21 - Allergies Allergies/Adverse Reactions: Allergies Allergy/AdvReac Type Severity Reaction Status Date / Time codeine Allergy Emesis Verified 05/21/21 13:51 oxycodone Allergy Itching Verified 05/21/21 13:51 pseudoephedrine Allergy Hives Verified 05/21/21 13:51 hydromorphone AdvReac Itching Verified 05/21/21 13:51 tramadol AdvReac Itching Verified 05/21/21 13:51 Review of Systems - Constitutional Constitutional: reports: Fatigue (remains persistent; impacts function), Weakness, Weight stable - Eyes Eyes: reports: Vision loss, Corrective lenses - Ears, Nose & Throat Ears, Nose & Throat: reports: Hearing loss, Dry mouth - Cardiovascular Cardiovascular: reports: Edema (mild), Lightheadedness, Decr. exercise tolerance. denies: Chest pain - Respiratory Respiratory: reports: SOB with exertion. denies: Cough, SOB at rest - Gastrointestinal Gastrointestinal: reports: Rectal bleeding, Early satiety (eats a main meal pippa y). denies: Constipation, Nausea, Reflux/heartburn - Genitourinary Genitourinary: reports: Frequency, Incontinence. denies: Dysuria - Musculoskeletal Musculoskeletal: reports: Back pain, Muscle aches, Stiffness, Muscle weakness, Other (fall required lift assist in July; having difficulty with fatigue and being able to tolerate outpatient PT) - Integumentary Integumentary: reports: Dryness, Nail changes (left toe nail still problematic; Dr. Gary removed), Hair changes (thinning) - Neurological Neurological: reports: General weakness, Numbness (left LE and LUE), Memory problems (last SLUMS score 21), Abnormal gait (slightly ataxic), Slurred speech ( dysarthia; slowed thought processes making communication with outside resources difficult; daughter provides some of this). denies: Headache - Psychiatric Psychiatric: reports: Depression (controlled feels doing better) - Endocrine Endocrine: reports: Diabetes type 2, Intolerance to cold - Hematologic/Lymphatic Hematologic/Lymph: reports: Anemia - All Other Systems All Other Systems: reports: Reviewed and negative Physical Exam - Vital Signs Pulse Rate: 68 Respiratory Rate: 18 O2 Saturation: 100 (ra @ rest) Blood Pressure: 112/62 - Physical Exam General Appearance: positive: No acute distress, Alert, Other (slight fullness cushingnoid improved off dex) Eyes Bilateral: positive: No scleral icterus, Other (periorbital edema) ENT: positive: No signs of dehydration Neck: positive: Trachea midline Cardiovascular: positive: Regular rate & rhythm Respiratory: positive: No respiratory distress, Diminished in bases. negative: Wheezes, Rales, Rhonchi Abdomen: positive: Non-tender, Soft, Obese Skin: positive: Pallor, Dryness Extremities: positive: Pedal edema (trace) Neurologic/Psychiatric: positive: Oriented x3, Mood/affect nml, Flat affect, Other (word finding more difficult; has not started or participated in outpatient Speech yet) Palliative Care - POLST Patient has POLST: No POLST Status: Full Code Pain: Pain unchanged, Location (back and rib area; no new areas;), Severity (pain builds through the day; uses oxycodone 30 mg late afternoon ; pruitis only slight; uses about 4x a week; uses marijuana for support daily; pregabalin for background neuropathic pain) Tiredness/Fatigue: Moderate (4-6) Drowsiness/Sedation: Moderate (4-6) Nausea: Mild (1-3) Anorexia: Mild (1-3) Dyspnea: Mild (1-3) Depression: Mild (1-3) Anxiety: Mild (1-3) Feelings of wellbeing/Perceived Quality of Life: Fair, Worsening, Comment (more homebound) Sleep: Variable sleep pattern Constipation: No Performance Status: Patient balance is poor, she did get a ball as directed from outpatient but has not started exercises. She is able to ambulate short distances, but does have some peripheral neuropathy makes her high risk for sequela of a fall. She does shower independently, but is quite limited. - Palliative Care Discussion: Patient is quite discouraged with her current quality of life, she has set a goal for Thanksgiving is something look forward to. Patient likes to plan parties and is expecting to have her friends over. She is feeling like she cannot continue outpatient physical therapy because it is too difficult to get out. We discussed transitioning to home health services, she finds this very encouraging. Patient does have metastatic breast cancer, though this is the least of her worries at this point in time, has been the deficits of her stroke. She gets very embarrassed and not being able to speak or think clearly, she is back to of setting up her own medications, reports that her cousin's has not been available. She denies persistent depression or anxiety, feels like she is coping fairly well, but is concerned that her current quality of life. Results - Lab Results Lab results reviewed: Yes Impression and Recommendations - Palliative Care Impression: This is a 75-year-old woman with metastatic breast cancer to the bones, persistent aphasia and apraxia, dysarthria, related to sequela of stroke. Patient continues with some residual right-sided weakness, balance issues multifactorial related to peripheral neuropathy and stroke. Patient's pain moderately controlled, complex with allergy and pruritus opioids, using pregabalin and intermittent oxycodone. Patient with persistent fatigue, difficulty tolerating outpatient therapy will transition to home health therapy services. Palliative care continue provide support for pain and symptom management, coordination of care, and anticipatory guidance. Recommendations/Counseling Done: 1. Pain of neoplastic origin. Patient has multiple pain generators, currently on pregabalin 150 mg 3 times a day, for chemotherapy-induced peripheral neuropathy, she is doing better with pruritus and able to titrated off the dexamethasone. She is using oxycodone 30 mg 4 out of 7 days a week for escalating pain mostly in her left shoulder and back, this worsens through the day. She is supplementing this with marijuana. Reports no further worsening or new pains noted. Patient satisfied with current regimen, has been on fentanyl before with some improvement in her pain but is fearful of returning to this, will return to monitor. She did not have any significant side effects so does remain an option. 2. CVA. Patient did present 06/15/2021 with acute symptoms of right-sided weakness, worsening apraxia/aphasia and continues with residual neuro deficits. She has not been able to tolerate physical therapy outpatient, secondary fa tigue which worsens her symptoms. Given her falls at home, would be appropriate to initiate home health therapies, and most likely with meeting goals of home safety, and fall recover. Patient also has not started speech therapy, she would definitely benefit from this. She is quite anxious to get started. 3. Medication adherence. Patient does have a list she is working from, she did have her cousin's feeling good but she is no longer available. Reviewed medication list and Mediset does appear appropriate at this point in time. May need further supervision in the future, but will have OT/ ST address cognitive testing. Slums on 06/24 was 21 out of 30. 4. Depression. Patient is doing well with the addition of Abilify, she feels she is currently in a good place. She continues to use intermittent Ritalin to help her with her overall fatigue and mood elevation. She has set some short- term goals which always helps with her depression, is expecting to have a group of friends for Thanksgiving. 5. Generalized weakness. Patient remains quite sedentary, she unfortunately did not qualify for assistance to Senior services. She will benefit from further home exercise program strengthening, and safety eval. 6. Advanced care planning. Patient continues to struggle more so with neuro deficits and recent acute event, she continues want treatment to extend her quantity of life as long as possible, continues to be challenged to manage given the complexity of her situation and isolation. [id number]. It is a taxing considerable effort for the patient to leave the home, given her underlying comorbidities of metastatic breast cancer and sequela from her stroke, causes increased fatigue. Patient benefit from physical therapy for home exercise program, strengthening, fall recovery, OT for upper extremity strengthening, bathroom safety, ADLs, and cognitive testing. Speech therapy for speech, patient with apraxia, dysarthria, and aphasia would benefit from support and exercises. 45 minutes with greater than 50% of this done in counseling, review of patient's current situation, recommendation for transition to home health therapies, review of current medications, and anticipatory guidance. Coordination of care with primary care provider
== END 2021-09-11 15:01 | disposition home or self-care (01) ==
LOC: PC 15:00
PROVIDERS: ATTEND Nurse Practitioner Adult Health
DX: Z51.5 Encounter for palliative care (principal); G89.3 Neoplasm related pain (acute) (chronic); C50.912 Malignant neoplasm of unspecified site of left female breast; C50.911 Malignant neoplasm of unspecified site of right female breast; C79.51 Secondary malignant neoplasm of bone; I69.951 Hemiplegia and hemiparesis following unspecified cerebrovascular disease affecting right dominant side; I69.990 Apraxia following unspecified cerebrovascular disease; I69.919 Unspecified symptoms and signs involving cognitive functions following unspecified cerebrovascular disease; I10 Essential (primary) hypertension; Z91.81 History of falling; F32.9 Major depressive disorder, single episode, unspecified; R53.1 Weakness; E11.9 Type 2 diabetes mellitus without complications; J44.9 Chronic obstructive pulmonary disease, unspecified; H54.7 Unspecified visual loss; H91.90 Unspecified hearing loss, unspecified ear; Z79.891 Long term (current) use of opiate analgesic; Z79.84 Long term (current) use of oral hypoglycemic drugs
CPT/HCPCS: 99215

== ENCOUNTER 2021-12-06 17:59 | Outpatient (CLI) | payer MEDICARE | END 2021-12-06 18:00 | disposition EMS.NT | LOC: EMS 17:59 | DX: Z03.89 Encounter for observation for other suspected diseases and conditions ruled out (principal) ==

== ENCOUNTER 2021-12-16 15:00 | Outpatient (CLI) | payer MEDICARE ==
--- NOTE | 2021-12-16 17:27 | CONSULTATION NOTE ---
Palliative Care Follow Up - Referral Referring Provider: Dr. Quang Lozada Time of Visit: [id number] Referral setting: Home Referral Reason: Pain of neoplastic origin/Aphasia/FTT/Met Breast CA to bones - Information Sources Records reviewed: Previous records reviewed History/Review of Systems obtained from: Patient, Family (checked in with angelo Ramirez), Other (Speech therapist present for part of visit) Exam limitations: Clinical condition (poor STM deficits) - History of Present Illness Update Brief HPI Update: This is a 75-year-old woman with recurrent metastatic breast cancer to the bone, with a complex history in the context of recurrent CVAs. She had been referred to home health last time I saw her, secondary to stroke residual of aphasia and ataxia, who have been trying to support her. She has had nursing now involved secondary to patient's poor medication adherence and increasing confusion, and not able to manage independently. She also has HAND MOUNTER who is working with her for placement, care options, and transportation. Patient has been referred to APS, is concern for her managing safely at home. She has had falls, and laying on the floor.Most significant issue has been her inability to follow through on tracking her care needs, had missed multiple appointments for labs and injections and ability to navigate transportation. She does have a daughter Giselle, who has been helping her some, but is not a primary caregiver. She has a son who is moving to [place] and not available. She has friends and unfortunately have not been participating in helping her with her care needs. After much a do, did finally get her in to oncology, at this point in time the decision was to discontinue her Ibrance secondary to poor compliance with lab work and concern about medication compliance. She has been having worsening speech, fluctuating mental status and confusion, as well as concern for pro gressive or recurrent strokes. She is pending a MRI of the brain to assist with identifying underlying etiology. Unfortunately patient feels like "she is dying", but is not wanting to succumb. She does understand she needs a different living situation, and is willing at this point to consider assisted living. Unfortunately her financial situation with need for spend down, has made this more complicated. Patient identifies worsening depression, related to her situation. Patient's pain continues intermittent, does build through the day on her left side and mid thoracic area radiating through up into her shoulder and neck. She does take her oxycodone without pruritus 1 time a day, and uses marijuana at night for pain control. She continues on the pregabalin 150 mg 3 times daily for persistent peripheral neuropathy as adjuvant for her pain control for her bony pain. I am doing a joint visit with Shraddha the speech therapist from [facility], reports her original MoCA has declined significantly. Though when I spoke with her daughter Giselle, reports APS did a cognitive eval and she passed with following colors other than recalling the list of words. It has been most everybody's obs ervation, the patient's confusion and mental status fluctuates. She reports it is very difficult for her "words" to come out, and often nods yes and no not in the appropriate response.The home health team has been working with her to try improve safety, medication adherence, strength, and decrease fall risk. Palliative care AD COPY WRITER here today to elicit further goals of care and ways to support patient. 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 Patient has a son but is unable to come and help. She also has a daughter who lives nearby, who is an estranged relationship. The daughter has been trying to help with picking up meds, groceries, and tasks but has been difficult for her if she is recently lost her father who was Nella's ex- . She does have a cousin who intermittently helps but has been less available, at community of friends who are gone currently.She has had APS referral/reports, related to concerns for patient safety and self neglect. She is getting support from [facility] home health team.She is currently able to still do meal prep or warm up meals, she eats twice a day. She has not been able to do her IADLs. Medications/Allergies - Medications Home Medications: Ambulatory Orders Medication Instructions Recorded Confirmed Citalopram [CeleXA] 40 mg PO DAILY tablet 07/14/17 12/16/21 Metoprolol Succinate 100 mg PO DAILY 08/29/19 12/16/21 oxyCODONE [Roxicodone] 30 mg PO DAILY PRN 09/26/19 12/16/21 Methylphenidate [Ritalin] 5 - 10 mg PO BID PRN MDD 20 mg 11/20/19 12/16/21 Calcium Carbonate/Vitamin D3 3 tab PO DAILY 03/20/20 12/16/21 [Calcium 600-Vit D3 500 Softgel] Pregabalin 150 mg PO TID 06/04/20 12/16/21 Aripiprazole [Abilify] 5 mg PO DAILY 12/26/20 12/16/21 metFORMIN [Glucophage] 500 mg PO BID 12/26/20 12/16/21 Aspirin [Geddes Aspirin] 81 mg PO DAILY 06/24/21 12/16/21 Atorvastatin Calcium [Lipitor] 80 mg PO QPM 06/24/21 12/16/21 - Allergies Allergies/Adverse Reactions: Allergies Allergy/AdvReac Type Severity Reaction Status Date / Time codeine Allergy Emesis Verified 05/21/21 13:51 oxycodone Allergy Itching Verified 05/21/21 13:51 pseudoephedrine Allergy Hives Verified 05/21/21 13:51 hydromorphone AdvReac Itching Verified 05/21/21 13:51 tramadol AdvReac Itching Verified 05/21/21 13:51 Review of Systems - Constitutional Constitutional: reports: Fatigue (remains persistent; impacts function), Weakness, Weight loss (reports 10 pound weight loss) - Eyes Eyes: reports: Vision loss (feels worsening but denies dipolpia/blurred), Corrective lenses - Ears, Nose & Throat Ears, Nose & Throat: reports: Hearing loss, Dry mouth - Cardiovascular Cardiovascular: reports: Edema (mild), Lightheadedness, Decr. exercise tolerance. denies: Chest pain - Respiratory Respiratory: reports: SOB with exertion. denies: Cough, SOB at rest - Gastrointestinal Gastrointestinal: reports: Early satiety (eats a main meal daily; and small second one). denies: Constipation, Nausea, Reflux/heartburn - Genitourinary Genitourinary: reports: Frequency, Incontinence. denies: Dysuria - Musculoskeletal Musculoskeletal: reports: Back pain, Muscle aches, Stiffness, Muscle weakness, Assistive devices (using walker outside; working with PT) - Integumentary Integumentary: reports: Dryness, Nail changes (left toe nail still problematic; Dr. Gary removed), Hair changes (thinning) - Neurological Neurological: reports: General weakness, Numbness (left LE and LUE), Memory problems (last SLUMS score 21), Abnormal gait (slightly ataxic), Slurred speech ( dysarthia; slowed thought processes making communication with outside resources difficult; daughter provides some of this), Other (worsening and fluctuating cognitive status; working with ST). denies: Headache - Psychiatric Psychiatric: reports: Depression (feels is worsening; "I am dying"), Anxiety - Endocrine Endocrine: reports: Diabetes type 2, Intolerance to cold - Hematologic/Lymphatic Hematologic/Lymph: reports: Anemia (11.7). denies: Recurrent infections - All Other Systems All Other Systems: reports: Reviewed and negative Physical Exam - Vital Signs Temperature: 97.3 C Pulse Rate: 57 Respiratory Rate: 16 O2 Saturation: 98 (ra @ rest) Blood Pressure: 142/80 - Physical Exam General Appearance: positive: Alert, Mild distress (related to feeling overwhelmed), Anxious, Other (slight fullness cushingnoid improved off dex) Eyes Bilateral: positive: No scleral icterus, Other (periorbital edema) ENT: positive: No signs of dehydration Neck: positive: Trachea midline Cardiovascular: positive: Regular rate & rhythm Respiratory: positive: No respiratory distress, Diminished in bases. negative: Wheezes, Rales, Rhonchi Abdomen: positive: Non-tender, Soft, Obese Skin: positive: Pallor, Dryness Extremities: positive: Pedal edema (trace) Neurologic/Psychiatric: positive: Oriented x3, Mood/affect nml, Disoriented to time, Weakness, Flat affect, Other (word finding more difficult; reported by [facility] had decreased since started; finds fluctuating levels of ability; forgot evening pills this week; RN filling medisets patient not able) Palliative Care - POLST Patient has POLST: No POLST Status: Full Code Pain: Pain unchanged, Location (left upper thoracic spine; radiates around to left shoulder area/ 8/10;), Comment (medicating with oxycodone 30 mg daily mid day; marijuana smoking in evenings) Tiredness/Fatigue: Moderate (4-6) Drowsiness/Sedation: Moderate (4-6) Nausea: Mild (1-3) Anorexia: Moderate (4-6), Weight loss Dyspnea: Mild (1-3) Depression: Severe (7-10) Anxiety: Moderate (4-6) Feelings of wellbeing/Perceived Quality of Life: Poor, Worsening Sleep: Sleeps well Constipation: Yes, Opoid induced, Managed Performance Status: Patient is ambulatory, though she has had some falls. Her balance is off particularly related to her peripheral neuropathy. She did bathe while her daughter was present, but had difficulty figuring out how to turn on the water. This is confirmed both by the patient and daughter. She reports she is getting stronger, does use a walker when she is outside. Is able to ambulate around the house. She is able to take care of her cat. She is having more trouble with communication, and is working with speech therapy to improve that - Palliative Care Discussion: Patient continues to be quite discouraged with her quality of life, is unable to really explain why she has not been following through on appointments. She has had ongoing decline of cognitive status and functional status, has recently been able to meet with oncology, with escalation of MRI for brain to evaluate underlying etiology of her decline. She is very fearful she is "dying", if this is metastatic disease to the brain this is much more serious in the context of her disease, otherwise her markers are remaining stable. If she has progressive stroke symptoms and continues to decline cognitively, will need further assistance and support, and much longer process as far as identifying prognosis and decline. She is very discouraged overall feeling quite vulnerable and depressed. Is unable to really navigate her current situation. She gets very distressed at not being able to speak or think clearly, or communicate. That she has withdrawn quite a bit from her social network and letting her needs be known. She is working with the HAND MOUNTER from [facility], and today is sa hooper she would be willing to look at assisted living and increased support as long as she could take her cat Toya. Results - Lab Results Lab results reviewed: Yes Impression and Recommendations - Palliative Care Impression: This is a 75-year-old woman with metastatic breast cancer to the bones, persistent aphasia, apraxia, dysarthria related to sequela of a stroke. She continues with some right-sided weakness and balance issues related both to peripheral neuropathy and stroke. She has had further decline in her cognitive status, with concern for possible extension or recurrent stroke versus metastatic disease. Patient does have persistent pain though feels currently controlled on her once a day dosing with oxycodone, and pregabalin 3 times daily. She is currently receiving home health services which are supporting her in her current situation though remains quite tenuous. Palliative care continue provide support for pain and symptom management, coordination of care, and anticipatory guidance. Recommendations/Counseling Done: 1. Pain of neoplastic origin. Patient has multiple pain generators, currently on pregabalin 150 mg 3 times daily, for chemotherapy-induced peripheral neuropathy and an adjuvant for her bony pain. She is using oxycodone 30 mg daily between 1 and 5 PM, for left shoulder, left thoracic back pain that pills to the day. She is supplementing with marijuana in the evening. She denies any alcohol use. We will continue current regimen as not to complicate things. She is on Ritalin to counterbalance her sedation from her pregabalin. 2. CVA. Patient remains with persistent residual neuro deficits, these fluctuate in severity. She has been working with home health team with improvement of strength, but continues with decline of cognitive deficits. They are trying to continue support her for safe alternatives and decreasing fall risk. She has been seeing speech consistently with support for both cognitive issues and speech. Did a joint visit with speech therapist, will continue to work with her particularly around medication adherence, did set some alarms on her phone. 3. Medication adherence. Signature RN now filling Mediset weekly, patient had not taken meds in the evening for the last 3 or 4 nights per report. Thus the speech therapist was there to set alarms and do some problem-solving regarding helping her remember. Home health is not a permanent solution, would benefit from assisted living support, if not we will need to identify someone to set up medications. Spoke with daughter regarding this, did not feel like she could take on this responsibility. May need to find alternative either her cousin or friend. 4. Depression. Patient reports exacerbation of her depression, unclear if this is mostly related to her situational depression at this point. She has been reported to APS, working HAND MOUNTER for placement options, and continues to feel quite vulnerable. She does feel currently she is "dying". We did discuss need to identify underlying etiology before we can consider more long-term planning regarding this. 5. Generalized weakness. Patient remains quite sedentary, she is working with physical therapy for fall recovery, unfortunately did have a fall where she laid for several hours. We are looking at getting her a med alert. Encouraged to have someone in the home when she is bathing. 6. Advanced care planning. Patient continues to struggle with decline of cognitive, at this point in time she will no longer be on Ibrance until solve medication adherence issues. She will get her monthly Xgeva and Faslodex. Did discuss with daughter who is willing to help facilitate getting appropriate transportation for rides and testing. She was not aware of patient's issues regarding nonadherence to visits. Patient continues to be a challenge in the context of the complexity of her situation and isolation and limited caregiving/community support. 60 minutes with greater than 50% of this done in counseling regarding symptom management, evaluation of current situation, counseling for depression, coordination of care with home health team, daughter, and oncology.
== END 2021-12-16 15:01 | disposition home or self-care (01) ==
LOC: PC 15:00
PROVIDERS: ATTEND Nurse Practitioner Adult Health
DX: Z51.5 Encounter for palliative care (principal); G89.3 Neoplasm related pain (acute) (chronic); C79.51 Secondary malignant neoplasm of bone; Z91.19 Patient's noncompliance with other medical treatment and regimen; I69.390 Apraxia following cerebral infarction; I69.311 Memory deficit following cerebral infarction; I69.318 Other symptoms and signs involving cognitive functions following cerebral infarction; I69.398 Other sequelae of cerebral infarction; I69.393 Ataxia following cerebral infarction; I69.351 Hemiplegia and hemiparesis following cerebral infarction affecting right dominant side; I10 Essential (primary) hypertension; G62.0 Drug-induced polyneuropathy; T45.1X5A Adverse effect of antineoplastic and immunosuppressive drugs, initial encounter; F32.A Depression, unspecified; Z79.899 Other long term (current) drug therapy; Z79.891 Long term (current) use of opiate analgesic; Z79.82 Long term (current) use of aspirin; Z74.2 Need for assistance at home and no other household member able to render care; Z59.9 Problem related to housing and economic circumstances, unspecified; Z63.8 Other specified problems related to primary support group; Z91.81 History of falling
CPT/HCPCS: 99350

== ENCOUNTER 2022-01-05 13:09 | Outpatient (CLI) | payer MEDICARE ==
[2022-01-05] MEDS ORDERED: GADOBUTROL 10 MMOL/10 ML VIAL ONE (14:29)
--- NOTE | 2022-01-05 15:30 | MRI Report ---
PROCEDURE: Brain W/WO INDICATIONS: BREAST CA CONTRAST: IV CONTRAST: Gadavist ml: 9 TECHNIQUE: Noncontrast axial T1 spin echo, axial T2 fast spin echo, sagittal and axial FLAIR, coronal T2 fast sp in echo, axial gradient echo, axial diffusion and ADC through the brain. After the administration of contrast, axial and coronal T1 spin echo with fat saturation through the brain. COMPARISON: 10/31/2020 FINDINGS: Image quality: Excellent. CSF spaces: Basal cisterns are patent. No extra-axial fluid collections. Ventricles are normal in size and shape. 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 This measures 12 x 8 mm in greatest axial dimension, with a craniocaudal extent of 12 mm. When measured in a similar fashion, this is unchanged in size a nd appearance compared to the 2019 MRI examination. No midline shift. No intracranial bleeds. There is cerebral volume loss for age. There is perivent ricular white matter chronic small vessel ischemic change. The brainstem appears normal. Diffusion- weighted images demonstrate no acute ischemic insults. No chronic ischemic insults. Normal intravas cular flow voids are present. Skull and face: Calvarial marrow is normal in signal. Orbits appear normal. Sinuses: Sinuses and mastoids appear clear. Relatively prominent right-sided crystal bullosa can be seen. IMPRESSION: Within the left cerebellopontine angle cistern and extending into the left internal tae tory canal, there is an enhancing mass seen, which is unchanged compared to 2019, when measured in a similar fashion. Differential diagnosis includes a vestibular schwannoma or meningioma. No parenchymal metastases can be seen. No additional areas of masses or abnormal enhancement can be s een. Age-appropriate brain parenchymal volume loss and chronic small vessel ischemic change can be seen. Reviewed by: Russell Coles MD on 01/05/2022 2:28 PM [facility] Approved by: Russell Coles MD on 01/05/2022 2:28 PM [facility] Station ID: [id number]
[2022-01-06] MEDS ORDERED: GADOBUTROL 10 MMOL/10 ML VIAL IVP ONE (07:39)
== END 2022-01-05 13:10 | disposition home or self-care (01) ==
LOC: DI 13:09
PROVIDERS: ATTEND Internal Medicine
DX: C50.812 Malignant neoplasm of overlapping sites of left female breast (principal); G93.89 Other specified disorders of brain; I67.82 Cerebral ischemia; G31.89 Other specified degenerative diseases of nervous system
CPT/HCPCS: 70553; A9585

== ENCOUNTER 2022-01-22 13:30 | Outpatient (CLI) | payer MEDICARE ==
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
== END 2022-01-22 13:31 | disposition home or self-care (01) ==
LOC: PC 13:30
PROVIDERS: ATTEND Nurse Practitioner Adult Health
DX: Z51.5 Encounter for palliative care (principal); G89.3 Neoplasm related pain (acute) (chronic); C79.51 Secondary malignant neoplasm of bone; C50.919 Malignant neoplasm of unspecified site of unspecified female breast; Z79.899 Other long term (current) drug therapy; Z79.818 Long term (current) use of other agents affecting estrogen receptors and estrogen levels; Z74.1 Need for assistance with personal care; Z59.9 Problem related to housing and economic circumstances, unspecified; I10 Essential (primary) hypertension; I69.320 Aphasia following cerebral infarction; I69.390 Apraxia following cerebral infarction; I69.322 Dysarthria following cerebral infarction; I69.311 Memory deficit following cerebral infarction; I69.351 Hemiplegia and hemiparesis following cerebral infarction affecting right dominant side; G62.9 Polyneuropathy, unspecified; F32.A Depression, unspecified; Z91.14 Patient's other noncompliance with medication regimen
CPT/HCPCS: 99349

== ENCOUNTER 2022-02-05 12:30 | Outpatient (CLI) | payer MEDICARE ==
--- NOTE | 2022-02-05 19:56 | CONSULTATION NOTE ---
Palliative Care Follow Up - Referral Referring Provider: Dr. Quang Lozada Time of Visit: [id number] Referral setting: Home Referral Reason: Medication adherence/Aphasia/FTT/Met Breast CA - Information Sources Records reviewed: Previous records reviewed History/Review of Systems obtained from: Patient, Family (daughter Ashley present) Exam limitations: Clinical condition (patient with STM deficits/communication issues) - History of Present Illness Update Brief HPI Update: This is an unfortunate 76-year-old woman with recurrent metastatic breast cancer to the bone, with complex history in the context of what appears to be recurrent CVAs. Patient does have issues of residual aphasia, ataxia, difficulty managing home ADLs and most likely worsening memory. She does have difficulty with medication adherence, daughter has moved in, had taken over medication filling of Mediset so patient had not taken her pills today nor was Mediset filled. Daughter is overwhelmed already with patient's increased care needs, no legible or comprehensive list in the home, has just moved in this week and already noted tension and difficult relationship prior to this between daughter and patient. Patient is having increased difficulty with balance, does have peripheral neuropathy, patient does appear to have weight loss unable to confirm as there is no scales. She does report increased pain in her lower thoracic area and left neck, radiating to her left breast. She takes oxycodone 30 mg daily, without pruritus now. She continues on her pregabalin 150 mg 3 times daily. She is currently receiving Xgeva and Faslodex only, as patient has had difficulty with adherence. Will need to evaluate if daughter would be able to manage overseeing Ibrance, but worried about this given today's findings. Patient has completed with [employer], speech therapy reported worsening MoCA score with initial 29 out of 32, now 21 out of 30. Patient reports no further falls, unable to initiate conversations or questions, though able to respond with delayed response. But does best with yes/no, though often nods in conflict with answer provided. Past Medical History: Type 2 diabetes, hypercholesteremia, hypertension, COPD, history of head injury, GERD, worsening chronic vision loss, chronic hearing loss, osteoarthritis, migraines, history of pancytopenia with Ibrance, metastatic breast cancer with mets to the bone including T and L-spine, history of bilateral breast cancer stage II status post bilateral lumpectomy history of reconstruction with removal of prosthesis, known stenosis of ICA at 50% right and left. Social History - Living Situation Living arrangement: At home Living Situation: With family Support System: Daughter Giselle has moved in, patient reports difficult relationship with her, though is very much looking forward to having her support. Don herself feels quite overwhelmed, feels with her own health issues and being responsible. Patient would have a significant spend down before would qualify for assisted living support, daughter had been to this with patient's ex- and aware of what this looks like. Patient's goals are to stay in her own home, and is hoping to be able to do this with daughter support though I understand daughter's commitment is only currently for about 3 months. Medications/Allergies - Medications Home Medications: Ambulatory Orders Medication Instructions Recorded Confirmed Citalopram [CeleXA] 40 mg PO DAILY tablet 07/14/17 02/05/22 Metoprolol Succinate 100 mg PO DAILY 08/29/19 02/05/22 oxyCODONE [Roxicodone] 30 mg PO DAILY PRN 09/26/19 02/05/22 Methylphenidate [Ritalin] 5 - 10 mg PO BID PRN MDD 20 mg 11/20/19 02/05/22 Calcium Carbonate/Vitamin D3 3 tab PO DAILY 03/20/20 02/05/22 [Calcium 600-Vit D3 500 Softgel] Pregabalin 150 mg PO TID 06/04/20 02/05/22 Aripiprazole [Abilify] 5 mg PO DAILY 12/26/20 02/05/22 metFORMIN [Glucophage] 500 mg PO BID 12/26/20 02/05/22 Aspirin [Tennyson Aspirin] 81 mg PO DAILY 06/24/21 02/05/22 Fenofibrate Nanocrystallized 145 mg PO DAILY 02/05/22 02/05/22 [Tricor] Meloxicam [Mobic] 15 mg PO DAILY 02/05/22 02/05/22 Rosuvastatin Calcium [Crestor] 10 mg PO DAILY 02/05/22 02/05/22 - Allergies Allergies/Adverse Reactions: Allergies Allergy/AdvReac Type Severity Reaction Status Date / Time codeine Allergy Emesis Verified 05/21/21 13:51 pseudoephedrine Allergy Hives Verified 05/21/21 13:51 oxycodone AdvReac Mild Itching Verified 02/06/22 06:30 hydromorphone AdvReac Itching Verified 05/21/21 13:51 tramadol AdvReac Itching Verified 05/21/21 13:51 Review of Systems - Constitutional Constitutional: reports: Fatigue, Weakness, Weight loss - Eyes Eyes: reports: Vision loss (feels worsening but denies dipolpia/blurred; has pending eye appointment), Corrective lenses - Ears, Nose & Throat Ears, Nose & Throat: reports: Hearing loss, Dry mouth - Cardiovascular Cardiovascular: reports: Edema (mild), Lightheadedness, Decr. exercise tolerance. denies: Chest pain - Respiratory Respiratory: reports: SOB with exertion. denies: Cough, SOB at rest - Gastrointestinal Gastrointestinal: reports: Early satiety. denies: Constipation - Genitourinary Genitourinary: reports: Frequency, Incontinence. denies: Dysuria - Musculoskeletal Musculoskeletal: reports: Back pain, Muscle aches, Stiffness, Muscle weakness, Assistive devices - Integumentary Integumentary: reports: Dryness, Nail changes (left toe nail still problematic; Dr. Gary removed), Hair changes (thinning) - Neurological Neurological: reports: General weakness, Numbness, Memory problems (worsening), Abnormal gait, Slurred speech (min. verbal responses), Other (difficulty with word finding) - Psychiatric Psychiatric: reports: Depression, Anxiety - Endocrine Endocrine: reports: Diabetes type 2, Intolerance to cold - Hematologic/Lymphatic Hematologic/Lymph: reports: Anemia (11.6). denies: Recurrent infections - All Other Systems All Other Systems: reports: Other (more difficult to get accurate ROS with pts declining memory and verbal responses) Physical Exam - Vital Signs Temperature: 97.4 C Pulse Rate: 93 Respiratory Rate: 18 O2 Saturation: 98 Blood Pressure: 122/78 - Physical Exam General Appearance: positive: No acute distress, Alert Eyes Bilateral: positive: Other (periorbital edema) ENT: positive: No signs of dehydration Neck: positive: Trachea midline Cardiovascular: positive: Regular rate & rhythm Respiratory: positive: No respiratory distress, Breath sounds nml Abdomen: positive: Non-tender, Soft Skin: positive: Pallor, Dryness Extremities: positive: Pedal edema (trace in ankles) Neurologic/Psychiatric: positive: Disoriented to time, Weakness, Slurred/abnml speech, Depressed mood/affect, Flat affect, Other (long pauses with questions) Palliative Care - POLST POLST Status: DNR (Introduced the POLST given patients wishes for DNAR) Pain: Pain worsening, Location (see HPI; uses Marijuana also) Feelings of wellbeing/Perceived Quality of Life: Fair, Acceptable, Worsening Sleep: Sleeps well Constipation: No Performance Status: Patient's gait is somewhat ataxic, reports no further falls. Does ambulate in halls short distances. Does use walker when she is outside. She does need supervision for bathing, though remains mostly independent. Given both patient's and daughter's health conditions, reviewed lift assist for falls for safety. - Palliative Care Discussion: Daughter has moved in is staying at least for several months. Still things are in a bit of disarray, daughter had been feeling Mediset's, had forgotten this week. Giselle is set up to be her DPOA both for medical and financial. Patient is unable to manage her affairs at this time, daughter recently lost her father to who had complicated decline and dementia. We did discuss POLST in the context of patient's goals, she is at high risk for another stroke, or sequela from a fall.Patient's quality of life continues to deteriorate, and continues with financial concerns and stressors. Impression and Recommendations - Palliative Care Impression: This is a 76-year-old woman with metastatic breast cancer to the bones only, persistent and worsening aphasia, apraxia and dysarthria related to sequela of recurrent strokes. She remains at high risk secondary to residual right-sided weakness balance issues both due to peripheral neuropathy and her stroke. She has had decline cognitively. Daughter has moved in though things are somewhat in disarray as they are settling. Palliative care continue provide support for pain and symptom management coordination of care as well as anticipatory guidance. Recommendations/Counseling Done: 1. Pain of neoplastic origin. Patient has multiple pain generators. Currently on pregabalin 150 mg 3 times daily daily for her chemotherapy-induced peripheral neuropathy and adjuvant for her bony pain. She is using oxycodone 30 mg daily between 1 and 5 and p.m., as this is what has escalated. She is still taking these independently from her bottle. She does not want to do anything further as far as time-released or more scheduled [id number], will continue to revisit as now has daughter present for monitoring. 2. Late effects of CVA. Patient remains with persistent residual neuro deficits, which fluctuate in severity mostly related to fatigue. Patient is mostly nonverbal. 3. Medication adherence. Daughter is taken over filling Mediset's, though is distressed does not have a list, nor understands what patient is taking despite transition from home health. Reviewed list, filled Mediset for the week, has been difficult for her daughter to take over secondary to her underlying health issues. Will send updated list. 4. Metastatic breast cancer to the bones. Patient is receiving Xgeva and Zometa, she may be able to restart Ibrance if medication adherence and follow- through improves. There are still pills in the home, unclear if they are , will check at next visit. 5. Weight loss. Unable to document but patient does appear thinner. Patient can do some easy meal prep if repaired, they have been doing somewhat more in stant/takeout food as daughter has transition to moving in. May benefit from counseling from dietitian with the daughter for more healthy eating. Will address at next visit depending on patient's weight loss. 6. Advanced care planning. Patient continues to struggle with her decline, did introduce POLST to patient and daughter, patient does want to be a DN AR, daughter is familiar with it from when her father was on hospice. Patient is quite adamant does not want to the hospital, she does see her quality of life is declining, though she does not have any imminent life-threatening changes happening with her cancer, she is at more risk for recurrent stroke. 55 minutes with greater than 50% of this done in counseling, review of medications, introduction of POLST, coordination of care and anticipatory guidance
== END 2022-02-05 12:31 | disposition home or self-care (01) ==
LOC: PC 12:30
PROVIDERS: ATTEND Nurse Practitioner Adult Health
DX: Z51.5 Encounter for palliative care (principal); G89.3 Neoplasm related pain (acute) (chronic); C79.51 Secondary malignant neoplasm of bone; G62.0 Drug-induced polyneuropathy; T45.1X5A Adverse effect of antineoplastic and immunosuppressive drugs, initial encounter; I69.320 Aphasia following cerebral infarction; I69.390 Apraxia following cerebral infarction; I69.322 Dysarthria following cerebral infarction; I69.351 Hemiplegia and hemiparesis following cerebral infarction affecting right dominant side; I69.319 Unspecified symptoms and signs involving cognitive functions following cerebral infarction; R63.4 Abnormal weight loss; R26.0 Ataxic gait; I10 Essential (primary) hypertension; Z79.899 Other long term (current) drug therapy; Z79.891 Long term (current) use of opiate analgesic; Z79.84 Long term (current) use of oral hypoglycemic drugs; Z79.82 Long term (current) use of aspirin; Z91.14 Patient's other noncompliance with medication regimen; Z74.1 Need for assistance with personal care; Z63.8 Other specified problems related to primary support group; Z85.3 Personal history of malignant neoplasm of breast; Z66 Do not resuscitate; E11.9 Type 2 diabetes mellitus without complications
CPT/HCPCS: 99348; 99349; 99355

== ENCOUNTER 2022-03-31 14:00 | Outpatient (CLI) | payer MEDICARE ==
--- NOTE | 2022-03-31 18:40 | CONSULTATION NOTE ---
Palliative Care Follow Up - Referral Referring Provider: Dr. Quang Lozada Time of Visit: [id number] Referral setting: Home Referral Reason: Aphasia/FTT/Met Breast CA/Goals of Care - Information Sources Records reviewed: Previous records reviewed History/Review of Systems obtained from: Patient, Family (daughter Ashley) Exam limitations: Clinical condition (patient with little verbalizations; more STM deficits and noted confusion) - History of Present Illness Update Brief HPI Update: This is an unfortunate 76-year-old woman with recurrent metastatic breast cancer to the bone, with complex history in the context where it appears to be recurrent CVAs. Patient has residual aphasia, ataxia, difficulty managing ADLs, and worsening memory. Her daughter is recently moved in, and is realizing she will need to stay until patient's end-of-life as she is not able to manage independently. There has been some fluctuating tension, but for the most part has done fairly well overall. Daughter reports patient had a fall last week on Wednesday, is wondering if it was an another recurrent TIA as she seemed more confused and more difficult to eat coming out of it. Patient has balance issues, peripheral neuropathy, patient does have weight loss. We were able to weigh her today she was 195.6, she reports her baseline is 212. She reports just early satiety, but daughter feels like she is eating better since she moved in. Patient had not followed through on any kind of oncology appointments, last was seen in January, they do have a pending appointment in March. She is currently only receiving Xgeva and Faslodex, as still concerns about medication adherence and ability to monitor. She continues on her pregabalin 150 mg 3 times daily, has not needed any oxycodone, though daughter reports patient is Smoking a significant amount of pot. Patient reports she is sleeping well, daughter reports patient has low-grade moaning and patient does not recall at bedtime what is happening. Patient is expressing concern about "when is she dying". She very much does not want to be rehospitalized, and we discussed the complexity of her situation with her metastatic breast cancer, at this point only known with bone mets but more concern is her deteriorating neurologic condition. 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 Social History - Living Situation Living arrangement: At home Living Situation: With family Support System: Patient's daughter Giselle has moved in, this has been of much relief to patient. She reports she is feeling much more safe, and has appreciated her support. Giselle is recognizing patient will not be able to live alone, she had plan to make this just a temporary situation. She does see patient is deteriorating and expects to see her through end-of-life. We did discuss what other supports available, she has made application and is hoping to get some [facility] support. We did discuss for end-of-life care, if she thought her brother would come provide support, she felt like she would be able to call upon that if needed. Medications/Allergies - Medications Home Medications: Ambulatory Orders Medication Instructions Recorded Confirmed Citalopram [CeleXA] 40 mg PO DAILY tablet 07/14/17 03/31/22 Metoprolol Succinate 100 mg PO DAILY 08/29/19 03/31/22 oxyCODONE [Roxicodone] 30 mg PO DAILY PRN 09/26/19 03/31/22 Calcium Carbonate/Vitamin D3 3 tab PO DAILY 03/20/20 03/31/22 [Calcium 600-Vit D3 500 Softgel] Pregabalin 150 mg PO TID 06/04/20 03/31/22 Aripiprazole [Abilify] 5 mg PO DAILY 12/26/20 03/31/22 metFORMIN [Glucophage] 500 mg PO BID 12/26/20 03/31/22 Aspirin [Niota Aspirin] 81 mg PO DAILY 06/24/21 03/31/22 Fenofibrate Nanocrystallized 145 mg PO DAILY 02/05/22 03/31/22 [Tricor] Meloxicam [Mobic] 15 mg PO DAILY 02/05/22 03/31/22 Rosuvastatin Calcium [Crestor] 10 mg PO DAILY 02/05/22 03/31/22 amLODIPine [Norvasc] 5 mg PO DAILY 03/31/22 03/31/22 - Allergies Allergies/Adverse Reactions: Allergies Allergy/AdvReac Type Severity Reaction Status Date / Time codeine Allergy Emesis Verified 05/21/21 13:51 pseudoephedrine Allergy Hives Verified 05/21/21 13:51 oxycodone AdvReac Mild Itching Verified 02/06/22 06:30 hydromorphone AdvReac Itching Verified 05/21/21 13:51 tramadol AdvReac Itching Verified 05/21/21 13:51 Review of Systems - Constitutional Constitutional: reports: Fatigue, Weakness, Weight loss (195.6) - Eyes Eyes: reports: Vision loss (feels worsening but denies dipolpia/blurred; has pending eye appointment), Corrective lenses - Ears, Nose & Throat Ears, Nose & Throat: reports: Hearing loss, Dry mouth - Cardiovascular Cardiovascular: reports: Edema (mild), Lightheadedness, Decr. exercise tolerance. denies: Chest pain - Respiratory Respiratory: reports: SOB with exertion. denies: Cough, SOB at rest - Gastrointestinal Gastrointestinal: reports: Early satiety. denies: Constipation - Genitourinary Genitourinary: reports: Frequency. denies: Dysuria - Musculoskeletal Musculoskeletal: reports: Back pain, Muscle aches, Stiffness, Muscle weakness, Assistive devices (uses walker when out) - Integumentary Integumentary: reports: Dryness, Hair changes (thinning) - Neurological Neurological: reports: General weakness, Numbness, Memory problems (worsening), Abnormal gait, Slurred speech (min. verbal responses), Other (mainly yes/no answers not often consistent) - Psychiatric Psychiatric: reports: Depression, Anxiety - Endocrine Endocrine: reports: Diabetes type 2, Intolerance to cold - Hematologic/Lymphatic Hematologic/Lymph: reports: Anemia (11.6). denies: Recurrent infections - All Other Systems All Other Systems: reports: Other (more difficult to get accurate ROS with pts declining memory and verbal responses) Physical Exam - Vital Signs Temperature: 96.5 C Pulse Rate: 54 Respiratory Rate: 16 O2 Saturation: 98 Blood Pressure: 118/72 - Physical Exam General Appearance: positive: No acute distress, Alert Eyes Bilateral: positive: Other (periorbital edema) ENT: positive: No signs of dehydration Neck: positive: Trachea midline Cardiovascular: positive: Regular rate & rhythm Respiratory: positive: No respiratory distress, Breath sounds nml Abdomen: positive: Non-tender, Soft Skin: positive: Pallor, Dryness Extremities: positive: Pedal edema (trace in ankles) Neurologic/Psychiatric: positive: Disoriented to time, Weakness, Slurred/abnml speech, Depressed mood/affect, Flat affect, Other (long pauses with questions; only able to do yes/no) Palliative Care - POLST Patient has POLST: Yes POLST Status: DNR, Comfort Measures (completed at visit today) Pain: Pain improved, Location (back/left shoulder & neck) Feelings of wellbeing/Perceived Quality of Life: Fair, Acceptable, Worsening Sleep: Sleeps well Constipation: No Performance Status: Patient's gait is slow and measured, balance is off. She is quite shuffled, is still able to independently bathe, but daughter is aware when she is in the shower and assist as needed. Patient unable to do much these days, more difficu lty reading, engaging in social media, so things are quite limited. - Palliative Care Discussion: Daughter is recognizing patient is not able to live alone anymore, patient is quite grateful for daughters present since feeling better and more safe. She does feel like she is doing better overall. She denies increased anxiety or depression. We did discuss in the context of goals, what is most important to her. She is wondering "when she is going to ", we discussed about competing complex issues with her metastatic breast cancer and her deteriorating neurologic status.We discussed cancer most likely is like a little car running out of gas with some complexities sometimes and complications but more uncertain is if she is going to have a major stroke are be left with more deficits.Patient is quite clear she does not want to in a hospital, and would not have any life extending treatments at this point. After much discussion, it appears for the POLST that DN AR/DNI and comfort measures is most appropriate set of goals for her at this point.We did discuss the continuum of care, including hospice, patient is currently getting treatment, she would not be appropriate for hospice support, and will verify with oncology if she were to quit treatment if it would be assumed she was in her 6-month window. Impression and Recommendations - Palliative Care Impression: This is a 76-year-old woman with metastatic breast cancer to the bones only, persistent and worsening aphasia, apraxia and dysarthria related to sequela of recurrent strokes. She continues with both right-sided weakness and balance issues due to peripheral neuropathy and her stroke. She continues to decline cognitively. Patient currently supported by her daughter in home setting, unclear how long patient's needs are going to be met. Palliative care continue with patient for pain and symptom management and coordination of care as well as anticipatory guidance. Recommendations/Counseling Done: 1. Pain of neoplastic origin. Patient has multiple pain generators. Currently on pregabalin 150 mg 3 times daily for chemotherapy-induced peripheral neuropathy and adjuvant for her bony pain. She is not using oxycodone currently, she is using quite a bit of "pot". Patient feels currently her pain is controlled and does not want any changes to her plan. 2. Late effects of CVA. Patient remains with persistent residual neuro deficits which fluctuate in severity,. She may have had another incident last week. She is having continued cognitive and functional decline. She is mostly nonverbal for most of our visit, but does appear to be engaged. 3. Medication adherence. Daughter is taking over filling her meds, patient has missed only a few evening doses each week, has been difficult to continue to stay adherent, repeat turned another updated med list to follow. 4. Depression. Patient unfortunately has not been getting her Abilify, will restart. Patient remains quite vulnerable for further sequela of decline. Daughter does understand patient is going to need long-term support. Daughter is going to need support to provide ongoing help particularly into the continuum of hospice. May enlist help of [employer] when available. We will restart Abilify, prescription sent to [facility]. 5. Metastatic breast cancer to the bones. She has been receiving Xgeva and Zometa, unclear why she did not get another scheduled visit, had encouraged with call earlier in week to reschedule, does have pending appointment 04/15. 6. Advanced care planning. Patient continues to struggle with her decline, and wondering about her prognosis. We discussed the complexities of her situation her neurologic decline versus her metastatic breast cancer. Patient does not want to be hospitalized, nor any aggressive interventions. POLST with DN AR/DNI and comfort measures filled out. Counseling provided regarding the continuum of care including hospice. Will reach out to oncologist to see prognosis if patient stops treatment. 50 minutes with greater than 50% of this done in counseling regarding goals of care, anticipatory guidance, symptom management, and follow-up on medication adherence.
== END 2022-03-31 14:01 | disposition home or self-care (01) ==
LOC: PC 14:00
PROVIDERS: ATTEND Nurse Practitioner Adult Health
DX: Z51.5 Encounter for palliative care (principal); G89.3 Neoplasm related pain (acute) (chronic); I69.320 Aphasia following cerebral infarction; I69.393 Ataxia following cerebral infarction; I69.311 Memory deficit following cerebral infarction; I69.318 Other symptoms and signs involving cognitive functions following cerebral infarction; I10 Essential (primary) hypertension; F32.A Depression, unspecified; G62.9 Polyneuropathy, unspecified; C50.911 Malignant neoplasm of unspecified site of right female breast; C50.912 Malignant neoplasm of unspecified site of left female breast; Z79.899 Other long term (current) drug therapy; Z74.1 Need for assistance with personal care; Z66 Do not resuscitate
CPT/HCPCS: 99349